=== PATIENT | male | born 1960 | race Caucasian/White ===

== ENCOUNTER 2016-10-31 19:05 | Emergency (ER) | payer MEDICARE, MEDICAID ==
[2016-10-31] MEDS: ASPIRIN 81 MG CHEWABLE TABLET PO ONE (19:44)
[2016-10-31] MEDS: NITROGLYCERIN 0.4MG SL TABLET #25 BTL SL ONE (19:45)
[2016-10-31] MEDS: 0.9 % SODIUM CHLORIDE 1,000 ML BAG IV ONE (19:45)
[2016-10-31 19:47] LABS: HEMATOCRIT 41.7 % (42.0-52.0); HEMOGLOBIN 13.8 gm/dl (14.0-18.0); MEAN CELL VOLUME 86.9 fl (81-97); MEAN CORPUSCULAR HGB CONC 33.1 g/dl (32-36); MEAN PLATELET VOLUME 9.2 fl (7.4-10.4); PLATELET COUNT 154 K/uL (130-400); RED CELL DISTRIBUTION WIDTH 14.8 % (11.5-14.5); WHITE BLOOD COUNT W/O DIFF 5.1 K/uL (4.2-12.2)
[2016-10-31 19:53] LABS: MEAN CORPUSCULAR HEMOGLOBIN 28.7 pg (27-33)
[2016-10-31 19:58] LABS: ANION GAP 9.9 (7-16); BLOOD UREA NITROGEN 13 mg/dL (9-20); CARBON DIOXIDE 22.1 mmol/L (22-30); CREATINE PHOSPHOKINASE 85 U/L (55-170); CREATININE 0.8 mg/dL (0.66-1.25); EST GLOMERULAR FILTRATION RATE > 60 ml/min; GLUCOSE,RANDOM 155 mg/dL (70-110); INR 2.6; PROTHROMBIN TIME (PATIENT) 29.4 SECONDS (9.5-12.1)
[2016-10-31 20:21] LABS: TROPONIN I < 0.012 ng/mL (0.00-0.034)
--- NOTE | 2016-10-31 20:45 | Emergency Department Record ---
History of Present Illness - General Chief Complaint: Chest Pain Stated Complaint: NECK PAIN Time Seen by Provider: 10/31/16 19:23 Source: Patient Mode of Arrival: Ambulatory Limitations: No limitations - History of Present Illness Initial Comments: pt has had chest pain for 2 days that feels "like when i had afib". it has been constant with slight sob. pt also has neck pain that he woke up with this morning. pt does not recall any injury but states he might have slept on it wrong. he has chronic neck pain and has had MRIs that show spinal stenosis the pt states MD Complaint: Chest pain Onset/Timin -: Days(s) Onset: Other Pain Location: Substernal Pain Radiation: None Severity: Moderate Severity scale (1-10): 9 Quality: Other Consistency: Constant Improves With: Nothing Worsens With: Nothing Context: Other Anginal Symptoms: Other Other Symptoms: Other Treatments Prior to Arrival: None - Related Data Home Medications Medication Instructions Recorded Confirmed Last Taken Atorvastatin Calcium [Lipitor] 40 mg PO DAILY 02/28/14 10/31/16 09/10/16 Nitroglycerin [Nitrostat] 0.4 mg SL ASDIR PRN 02/28/14 10/31/16 09/10/16 Clonazepam [Klonopin] 1 tab PO Q12H PRN 02/22/15 10/31/16 09/10/16 Cyclobenzaprine HCl [Flexeril] 10 mg PO TID 03/28/15 10/31/16 09/10/16 Pantoprazole Sodium [Protonix] 20 mg PO BID 08/05/15 10/31/16 09/10/16 Pregabalin [Lyrica] 150 mg PO BID 03/08/16 10/31/16 09/10/16 Metoprolol Tartrate [Lopressor] 25 mg PO Q12H 05/18/16 10/31/16 09/10/16 Warfarin Sodium [Coumadin] 2.5 mg PO DAILY 05/18/16 10/31/16 09/10/16 Sotalol HCl [Betapace] 80 mg PO BID 09/06/16 10/31/16 09/10/16 Allergies Allergy/AdvReac Type Severity Reaction Status Date / Time venom-honey bee Allergy Severe ANAPHYLAXIS Verified 08/11/16 16:42 [bee venom (honey bee)] diazepam [From Valium] Allergy Intermediate unknown Verified 08/11/16 16:42 fentanyl Allergy Intermediate ITCHING Verified 08/11/16 16:42 ketorolac tromethamine Allergy Intermediate unknown Verified 08/11/16 16:42 morphine Allergy Intermediate unknown Verified 08/11/16 16:42 orphenadrine citrate Allergy Intermediate unknown Verified 08/11/16 16:42 [From Norflex] iodine Allergy Mild ITCHING Verified 08/11/16 16:42 Travel Screening - Travel/Exposure Within Last 30 Days Have you traveled within the last 30 days?: No - Travel/Exposure Within Last Year Have you traveled outside the [place] in the last year?: No - Additonal Travel Details Have you been exposed to anyone with a communicable illness?: No - Travel Symptoms Symptom Screening: None Review of Systems Reviewed: No additional complaints except as noted below Constitutional: Reports: As per HPI. Denies: Chills, Fever, Malaise, Night sweats, Weakness, Weight change Eyes: Reports: As per HPI. Denies: Eye discharge, Eye pain, Photophobia, Vision change ENT: Reports: As per HPI. Denies: Congestion, Dental pain, Ear pain, Epistaxis , Hearing loss, Throat pain Respiratory: Reports: As per HPI. Denies: Cough, Dyspnea, Hemoptysis, Stridor, Wheezes Cardiovascular: Reports: As per HPI. Denies: Arrhythmia, Chest pain, Dyspnea on exertion, Edema, Murmurs, Orthopnea, Palpitations, Paroxysmal nocturnal dyspnea, Rheumatic Fever, Syncope Endocrine: Reports: As per HPI. Denies: Fatigue, Heat or cold intolerance, Polydipsia, Polyuria Gastrointestinal: Reports: As per HPI. Denies: Abdominal pain, Constipation, Diarrhea, Hematemesis, Hematochezia, Melena, Nausea, Vomiting Genitourinary: Reports: As per HPI. Denies: Dysuria, Frequency, Hematuria, Incontinence, Retention, Testicular pain, Testicular mass, Urgency Musculoskeletal: Reports: As per HPI. Denies: Arthralgia, Back pain, Gout, Joint swelling, Myalgia, Neck pain Skin: Reports: As per HPI. Denies: Bruising, Change in color, Change in hair/ nails, Lesions, Pruritus, Rash Neurological: Reports: As per HPI. Denies: Abnormal gait, Confusion, Headache, Numbness, Paresthesias, Seizure, Tingling, Tremors, Vertigo, Weakness Psychiatric: Reports: As per HPI. Denies: Anxiety, Auditory hallucinations, Depression, Homicidal thoughts, Suicidal thoughts, Visual hallucinations Hematological/Lymphatic: Reports: As per HPI. Denies: Anemia, Blood Clots, Easy bleeding, Easy bruising, Swollen glands Past Medical History - SOCIAL HISTORY Smoking Status: Former smoker Alcohol Use: None Drug Use: None - RESPIRATORY Hx Respiratory Disorders: Yes Hx Bronchitis: Yes Hx COPD: Yes Hx Dyspnea: Yes Hx Pneumonia: Yes Hx Sleep Apnea: Yes Hx of CPAP: Yes - CARDIOVASCULAR Hx Cardio Disorders: Yes Hx Cardiac Cath: Yes (3 stents) Hx CHF: No Hx Edema: No Hx Heart Attack: Yes (2007,2008) Hx Hypertension: Yes Hx Irregular Heartbeat: Yes (a-fib) Comment:: CAD; high cholesterol - NEURO Hx Neuro Disorders: Yes Hx Neuropathy: Yes Comment:: neuropathy in legs and arms - GI Hx GI Disorders: Yes Hx Reflux: Yes Hx Rectal Bleeding: Yes (hemorrhoids) Hx Ulcer: Yes Hx of Polyps: Yes - Hx Genitourinary Disorders: Yes Comment:: cysts in scrotum - ENDOCRINE Hx Endocrine Disorders: Yes Hx Diabetes: Yes - MUSCULOSKELETAL Hx Musculoskeletal Disorders: Yes Hx Fibromyalgia: Yes Comment:: chronic pain, spinal stenosis - PSYCH Hx Psych Problems: Yes Hx Anxiety: Yes Hx Depression: Yes - HEMATOLOGY/ONCOLOGY Hx Hematology/Oncology Disorders: No Family Medical History Any Significant Family History?: Yes Hx Anxiety: Brother/Sister Hx Dementia: Mother Hx Depression: Brother/Sister Hx Diabetes: Father, Mother Hx Heart Disease: Father, Mother Hx HTN: Father, Mother Hx Resp Disorders: Mother Hx Seizures: Children Hx Stroke: Mother *Stroke Comment: MOm-brain aneurysm Physical Exam - General General Appearance: Alert, Oriented x3, Cooperative, Mild distress - Head Head exam: Normal inspection - Eye Eye exam: Normal appearance, PERRL, EOMI Pupils: Normal accommodation - ENT ENT exam: Normal exam, Mucous membranes moist, Normal external ear exam, Normal orophraynx Ear exam: Normal external inspection. negative: External canal tenderness Nasal Exam: Normal inspection. negative: Discharge, Sinus tenderness Mouth exam: Normal external inspection, Tongue normal Teeth exam: Normal inspection. negative: Dental caries Throat exam: Normal inspection. negative: Tonsillar erythema, Tonsillar exudate - Neck Neck exam: Normal inspection, Full ROM. negative: Tenderness - Respiratory Respiratory exam: Normal lung sounds bilaterally. negative: Respiratory distress - Cardiovascular Cardiovascular Exam: Regular rate, Normal rhythm, Normal heart sounds - GI/Abdominal GI/Abdominal exam: Soft, Normal bowel sounds. negative: Tenderness - Rectal Rectal exam: Deferred - exam: Deferred - Extremities Extremities exam: Normal inspection, Full ROM, Normal capillary refill. negative: Tenderness - Back Back exam: Reports: Normal inspection, Full ROM. Denies: Muscle spasm, Rash noted, Tenderness - Neurological Neurological exam: Alert, CN II-XII intact, Normal gait, Oriented X3 - Psychiatric Psychiatric exam: Normal affect, Normal mood - Skin Skin exam: Dry, Intact, Normal color, Warm Course Vital Signs 10/31/16 10/31/16 10/31/16 19:11 19:40 19:50 Temperature 97.8 F Pulse Rate 68 Pulse Rate [ 61 68 [employer] ] Respiratory 20 20 24 Rate Blood Pressure 116/77 Blood Pressure 113/70 107/70 [Left Arm] Pulse Ox 96 96 94 L 10/31/16 10/31/16 10/31/16 19:53 20:13 20:30 Temperature Pulse Rate Pulse Rate [ 62 57 L 63 [employer] ] Respiratory 24 20 20 Rate Blood Pressure Blood Pressure 107/71 107/64 102/62 [Left Arm] Pulse Ox 93 L 98 94 L - Reevaluation(s) Reevaluation #1: 10/31/16 23:47 ntg pt feels better. ntg had no effect on pain Medical Decision Making - Management Options MDM Management: No Additional Work-up Planned - Data Complexity MDM Data: Labs Ordered and/or Reviewed, X-Ray Ordered and/or Reviewed, EKG Ordered and/or Reviewed - Lab Data Result diagrams: 10/31/16 19:35 10/31/16 19:35 Lab Results 10/31/16 10/31/16 10/31/16 Range/Units 19:35 19:35 19:35 WBC 5.1 (4.2-12.2) K/uL RBC 4.80 (4.40-5.70) M/uL Hgb 13.8 L (14.0-18.0) gm/dl Hct 41.7 L (42.0-52.0) % MCV 86.9 (81-97) fl MCH 28.7 (27-33) pg MCHC 33.1 (32-36) g/dl RDW 14.8 H (11.5-14.5) % Plt Count 154 (130-400) K/uL MPV 9.2 (7.4-10.4) fl Neutrophils % 37.0 L (47-80) % Band Neutrophils % 0.0 (0-5) % Lymphocytes % 53.0 H (16-45) % Monocytes % 9.0 (0-9) % Eosinophils % 1.0 (0-6) % Basophils % 0.0 (0-6) % PT 29.4 H (9.5-12.1) SECONDS INR 2.60 Sodium 136 (136-145) mmol/L Potassium 4.4 (3.5-5.1) mmol/L Chloride 104 (98-107) mmol/L Carbon Dioxide 22.1 (22-30) mmol/L Anion Gap 9.9 (7-16) BUN 13 (9-20) mg/dL Creatinine 0.8 (0.66-1.25) mg/dL Estimated GFR > 60 ml/min Random Glucose 155 H (70-110) mg/dL Calcium 8.9 (8.5-10.1) mg/dL Creatine Kinase 85 (55-170) U/L CK-MB (CK-2) 2.0 (0-6) ug/L Troponin I < 0.012 (0.00-0.034) ng/mL - EKG Data -: EKG Interpreted by Mi EKG: No Acute Changes - Radiology Data Radiology results: Report reviewed, Image reviewed Disposition Disposition: Discharge (n) Clinical Impression: Torticollis, Chest pain in adult, Cervical radiculopathy Disposition: Home, Self-Care Condition: (1) Good Instructions: Chest Pain (ED), Cervical Radiculopathy (ED) Additional Instructions: follow up with family doctor. return sooner if worse Forms: Patient Portal Access
[2016-10-31] MEDS: ACETAMINOPHEN 1,000 MG in SODIUM CHLORIDE 1 BAG IVPB ONE (20:54)
[2016-10-31] MEDS: METHYLPREDNISOLONE PF 125MG/VIAL IVP ONE (21:25)
[2016-10-31] MEDS: PROMETHAZINE HCL 25 MG in 0.9 % SODIUM CHLORIDE 100ML 50 ML IVP ONE (22:19)
--- NOTE | 2016-11-05 14:03 | RADIOLOGY REPORT ---
EXAM: CERVICAL SPINE HISTORY: PATIENT HAS POSTERIOR NECK PAIN THAT HAS RADIATED TO HIS UPPER BACK FOR TWO DAYS. TECHNIQUE: Three views of the cervical spine were provided along with the comparison study dated 05/10/02. FINDINGS: The vertebral body height, contour, and AP alignment of the cervical spine is within normal limits. The atlantodental interval is within normal limits. There is no radiographic evidence of a fracture or dislocation of the cervical spine. There is reversal of normal lordosis which may be related to the patient's neck pain. The airways and epiglottis appear unremarkable. Open mouth view demonstrates the dens to be located symmetrically between the lateral masses. IMPRESSION: NO RADIOGRAPHIC EVIDENCE OF AN ACUTE PROCESS INVOLVING THE CERVICAL SPINE. IF THERE IS FURTHER CLINICAL CONCERN, THEN MRI OF THE CERVICAL SPINE COULD BE OBTAINED FOR FURTHER EVALUATION. JOB NUMBER: [id number] [facility]
--- NOTE | 2016-11-05 14:07 | RADIOLOGY REPORT ---
EXAM: CHEST, TWO VIEWS HISTORY: PATIENT HAS CHEST PAIN. TECHNIQUE: Two views of the chest were provided along with the comparison study dated 08/12/08. FINDINGS: The cardiomediastinal silhouette is within normal limits for size and contour. The nicho appear unremarkable. There is diffuse interstitial prominence identified bilaterally which may represent viral versus reactive airways disease. No focal consolidation or pleural effusion is noted. IMPRESSION: DIFFUSE INTERSTITIAL PROMINENCE IS NOTED BILATERALLY WHICH MAY REPRESENT VIRAL VERSUS REACTIVE AIRWAYS DISEASE. FOLLOW-UP PLAIN FILM RADIOGRAPHS OF THE CHEST CAN BE OBTAINED UNTIL RESOLUTION OF FINDINGS. JOB NUMBER: [id number] [facility]
== END 2016-10-31 23:55 | disposition home or self-care (01) ==
LOC: ER 19:05
DX: M43.6 Torticollis (principal); M54.12 Radiculopathy, cervical region; R07.2 Precordial pain; R06.02 Shortness of breath; J44.9 Chronic obstructive pulmonary disease, unspecified; I25.2 Old myocardial infarction; I10 Essential (primary) hypertension; I48.91 Unspecified atrial fibrillation; Z87.891 Personal history of nicotine dependence; Z79.01 Long term (current) use of anticoagulants
CPT/HCPCS: 71020; 72040; 80048; 82550; 82553; 84484; 85027; 85610; 93005; 93010; 96365; 96375; 99284; J2550; J2930; J7030

== ENCOUNTER 2016-11-26 00:24 | Emergency (ER) | payer MEDICARE, MEDICAID ==
--- NOTE | 2016-11-26 00:48 | Emergency Department Record ---
History of Present Illness - General Chief Complaint: Dizziness Stated Complaint: PASSED OUT Time Seen by Provider: 11/26/16 00:35 Source: Patient Mode of Arrival: Ambulatory Limitations: No limitations - History of Present Illness Initial Comments: 56 yo male presents after passing out in the bathroom about 2 hours prior to arrival. He states it occurred immediately after urinating. He was standing up to void. He was pulling his pants up when it occurred. He is unsure if he hit his head. His neck chronically hurts but it is now more painful. He has pain in the ribs and back. He has chronic frequent daily chest wall pain. He was concerned his atrial fibrillation returned. The patient has had multiple recent admissions for chest pain and atrial fibrillation. He had a negative perfusion study in June He was discharged from [facility] yesterday. He was discharged from [facility] less than one month ago. MD Complaint: Lightheadedness, Other (syncope) Onset/Timin -: Hour(s) Timing: Sudden onset Description: Lightheadedness, Near-syncope, Other History of Same: Yes Improves With: Nothing Worsens With: Nothing Associated Symptoms: Syncope, Weakness - [place] Coma Scale Eye Response: (4) Open spontaneously Motor Response: (6) Obeys commands Verbal Response: (5) Oriented Cecy Total: 15 - Related Data Home Medications Medication Instructions Recorded Confirmed Last Taken Atorvastatin Calcium [Lipitor] 40 mg PO DAILY 02/28/14 11/26/16 11/25/16 Nitroglycerin [Nitrostat] 0.4 mg SL ASDIR PRN 02/28/14 11/26/16 11/25/16 Clonazepam [Klonopin] 1 tab PO Q12H PRN 02/22/15 11/26/16 11/25/16 Cyclobenzaprine HCl [Flexeril] 10 mg PO TID 03/28/15 11/26/16 11/25/16 Pantoprazole Sodium [Protonix] 20 mg PO BID 08/05/15 11/26/16 11/25/16 Pregabalin [Lyrica] 150 mg PO BID 03/08/16 11/26/16 11/25/16 Warfarin Sodium [Coumadin] 2.5 mg PO DAILY 05/18/16 11/26/16 11/25/16 Amiodarone HCl [Pacerone] 200 mg PO BID 11/26/16 11/26/16 11/25/16 Aspirin [Ecotrin] 81 mg PO DAILY 11/26/16 11/26/16 11/25/16 Benzonatate [Tessalon] 1 cap PO Q8H PRN 11/26/16 11/26/16 Unknown Levofloxacin [Levaquin] 750 mg PO DAILY 11/26/16 11/26/16 11/25/16 Allergies Allergy/AdvReac Type Severity Reaction Status Date / Time venom-honey bee Allergy Severe ANAPHYLAXIS Verified 08/11/16 16:42 [bee venom (honey bee)] diazepam [From Valium] Allergy Intermediate unknown Verified 08/11/16 16:42 fentanyl Allergy Intermediate ITCHING Verified 08/11/16 16:42 ketorolac tromethamine Allergy Intermediate unknown Verified 08/11/16 16:42 morphine Allergy Intermediate unknown Verified 08/11/16 16:42 orphenadrine citrate Allergy Intermediate unknown Verified 08/11/16 16:42 [From Norflex] iodine Allergy Mild ITCHING Verified 08/11/16 16:42 Travel Screening - Travel/Exposure Within Last 30 Days Have you traveled within the last 30 days?: No - Travel/Exposure Within Last Year Have you traveled outside the [place] in the last year?: No - Additonal Travel Details Have you been exposed to anyone with a communicable illness?: No - Travel Symptoms Symptom Screening: None Review of Systems Constitutional: Denies: Chills, Fever, Malaise, Night sweats, Weakness Eyes: Denies: Eye discharge ENT: Denies: Congestion, Epistaxis, Throat pain Respiratory: Denies: Cough, Dyspnea, Hemoptysis, Stridor, Wheezes Cardiovascular: Reports: Arrhythmia (History of Atrial fibrillation recently), Chest pain, Syncope. Denies: Edema, Palpitations Endocrine: Denies: Fatigue Gastrointestinal: Denies: Abdominal pain, Diarrhea, Nausea, Vomiting Genitourinary: Denies: Dysuria, Frequency, Hematuria Musculoskeletal: Reports: Back pain (right and left ribs hurt since the fall), Neck pain. Denies: Arthralgia Skin: Denies: Bruising, Change in color, Rash Neurological: Denies: Abnormal gait, Confusion, Headache, Tingling, Tremors, Weakness Psychiatric: Denies: Anxiety Hematological/Lymphatic: Denies: Blood Clots, Easy bleeding, Easy bruising, Swollen glands Past Medical History - SOCIAL HISTORY Smoking Status: Former smoker Drug Use: None - RESPIRATORY Hx Respiratory Disorders: Yes Hx Bronchitis: Yes Hx COPD: Yes Hx Dyspnea: Yes Hx Pneumonia: Yes Hx Sleep Apnea: Yes Hx of CPAP: Yes - CARDIOVASCULAR Hx Cardio Disorders: Yes Hx Cardiac Cath: Yes (3 stents) Hx CHF: No Hx Edema: No Hx Heart Attack: Yes (2007,2008) Hx Hypertension: Yes Hx Irregular Heartbeat: Yes (a-fib) Comment:: CAD; high cholesterol - NEURO Hx Neuro Disorders: Yes Hx Neuropathy: Yes Comment:: neuropathy in legs and arms - GI Hx GI Disorders: Yes Hx Reflux: Yes Hx Rectal Bleeding: Yes (hemorrhoids) Hx Ulcer: Yes Hx of Polyps: Yes - Hx Genitourinary Disorders: Yes Comment:: cysts in scrotum - ENDOCRINE Hx Endocrine Disorders: Yes Hx Diabetes: Yes - MUSCULOSKELETAL Hx Musculoskeletal Disorders: Yes Hx Fibromyalgia: Yes Comment:: chronic pain, spinal stenosis - PSYCH Hx Psych Problems: Yes Hx Anxiety: Yes Hx Depression: Yes - HEMATOLOGY/ONCOLOGY Hx Hematology/Oncology Disorders: No Family Medical History Any Significant Family History?: No Hx Anxiety: Brother/Sister Hx Dementia: Mother Hx Depression: Brother/Sister Hx Diabetes: Father, Mother Hx Heart Disease: Father, Mother Hx HTN: Father, Mother Hx Resp Disorders: Mother Hx Seizures: Children Hx Stroke: Mother *Stroke Comment: MOm-brain aneurysm Physical Exam - General General Appearance: Alert, Oriented x3, Cooperative, No acute distress, Other ( Ambulated in from the parking lot) Limitations: No limitations - Head Head exam: Atraumatic, Normal inspection - Eye Eye exam: Normal appearance, PERRL. negative: Conjunctival injection - ENT ENT exam: Normal exam, Mucous membranes moist Ear exam: Normal external inspection Nasal Exam: Normal inspection Mouth exam: Normal external inspection Teeth exam: Normal inspection Throat exam: Normal inspection - Neck Neck exam: Normal inspection, Full ROM, Tenderness. negative: Meningismus - Respiratory Respiratory exam: Normal lung sounds bilaterally, Chest wall tenderness (right lateral ribs tender, no deformity or step off). negative: Accessory muscle use , Decreased breath sounds, Prolonged expiratory, Respiratory distress, Rhonchi, Stridor, Wheezes - Cardiovascular Cardiovascular Exam: Regular rate, Normal rhythm, Normal heart sounds. negative : Irregular rhythm Peripheral Pulses: 2+: Radial (R), Radial (L) - GI/Abdominal GI/Abdominal exam: Soft. negative: Guarding, Tenderness - Rectal Rectal exam: Deferred - exam: Deferred - Extremities Extremities exam: Normal inspection, Full ROM, Normal capillary refill. negative: Pedal edema, Tenderness - Back Back exam: Reports: Normal inspection, Full ROM. Denies: CVA tenderness (R), CVA tenderness (L), Muscle spasm, Paraspinal tenderness, Rash noted, Tenderness , Vertebral tenderness - Neurological Neurological exam: Alert, Normal gait (steady ambulation on arrival), Oriented X3, Reflexes normal. negative: Altered, Motor sensory deficit - Psychiatric Psychiatric exam: Normal affect, Normal mood - Skin Skin exam: Dry, Intact, Normal color, Warm, Other (No visible bruising or abrasions) Course Vital Signs 11/26/16 11/26/16 00:26 00:34 Temperature 97.3 F L Pulse Rate 73 Respiratory 20 Rate Blood Pressure 130/81 Pulse Ox 96 - Reevaluation(s) Reevaluation #1: EKG 00:30 NSR with RBBB, Intervals [id number], axis normal, ST NS changes of the RBBB. EKGS dating back to 2013 on the EMR are RBBB. No changes on today's EKG frm numerous prior EKG's. He is not in Afib. No hypotension or tachycardia on arrival. He has multiple recent admission to [facility] and [facility]. The most recent DC summaries of each hospital will be requested. 11/26/16 00:48 Reevaluation #2: The labs were reviewed. No acute changes of the CBC, CMP, CK The INR is 2.6 11/26/16 01:23 Troponin was negative at 0.012 11/26/16 01:37 Reevaluation #3: HR is 73 in NSR HCT was negative Cervical CT was negative CT of the Chest was negative for injury or acute process 11/26/16 02:27 11/26/16 02:47 Reevaluation #4: Repeat cardiac enzymes are negative The patient has remained in NSR during his observation in the ED DC home 11/26/16 05:17 - Consultations Consultation #1: [facility] DC Summary. Admit 10/26/16. Paroxysmal atrial fibrillation, Chest pain. Patient had recent negative stress test. No further testing per cardiology during that admission. Consultation #2: [facility] records were reviewed. The patient had a normal stress cardiolite on . Medical Decision Making - Lab Data Result diagrams: 11/26/16 01:00 11/26/16 01:00 Disposition Disposition: Discharge Clinical Impression: Micturition syncope Syncope Qualifiers: Syncope type: unspecified Qualified Code(s): R55 - Syncope and collapse Disposition: Home, Self-Care Condition: (2) Stable Instructions: Syncope (ED) Additional Instructions: call your doctor today for close follow up return to the ER if you have any return of symptoms or concerns. Forms: Patient Portal Access Time of Disposition: 05:17
[2016-11-26 01:05] LABS: HEMATOCRIT 40.8 % (42.0-52.0); HEMOGLOBIN 13.5 gm/dl (14.0-18.0); MEAN CELL VOLUME 87.2 fl (81-97); MEAN CORPUSCULAR HEMOGLOBIN 28.8 pg (27-33); MEAN CORPUSCULAR HGB CONC 33.1 g/dl (32-36); MEAN PLATELET VOLUME 9.5 fl (7.4-10.4); PLATELET COUNT 147 K/uL (130-400); RED BLOOD COUNT 4.68 M/uL (4.40-5.70); RED CELL DISTRIBUTION WIDTH 15.8 % (11.5-14.5); WHITE BLOOD COUNT W/O DIFF 5.5 K/uL (4.2-12.2)
[2016-11-26 01:16] LABS: ANION GAP 15.4 (7-16); BLOOD UREA NITROGEN 13 mg/dL (9-20); CARBON DIOXIDE 21.6 mmol/L (22-30); CREATINE PHOSPHOKINASE 59 U/L (55-170); CREATININE 0.9 mg/dL (0.66-1.25); EST GLOMERULAR FILTRATION RATE > 60 ml/min; GLUCOSE,RANDOM 160 mg/dL (70-110); INR 2.62; PARTIAL THROMBOPLASTIN TIME 41.8 SECONDS (24.5-39.1); PROTHROMBIN TIME (PATIENT) 29.6 SECONDS (9.5-12.1)
[2016-11-26 01:29] LABS: CKMB 1.5 ug/L (0-6); TROPONIN I < 0.012 ng/mL (0.00-0.034)
--- NOTE | 2016-11-29 09:39 | CT SCAN REPORT ---
EXAM: CT SCAN OF THE HEAD HISTORY: PATIENT HAS A HISTORY OF SYNCOPE. PATIENT HAS A HISTORY OF DIZZINESS. TECHNIQUE: Serial axial CT scan of the head was performed at 2.5 mm intervals from the base of the skull to the apex without the use of intravenous contrast. Sagittal and coronal reconstructions were provided. CT scan of the head dated 05/19/08 is provided. FINDINGS: The ventricles, cisterns, and sulci appear within normal limits for size, shape, and attenuation. There is no mass or mass effect. The greer and white differentiation appear within normal limits. There is no CT evidence of intra or extraaxial fluid collection to suggest bleeding. Bone windows demonstrate no CT evidence of a fracture or dislocation of the skull. The paranasal sinuses are unremarkable. IMPRESSION: NO CT EVIDENCE OF AN ACUTE INTRACRANIAL PROCESS. JOB NUMBER: [id number] [facility]
--- NOTE | 2016-11-29 09:44 | CT SCAN REPORT ---
EXAM: CT SCAN OF THE CERVICAL SPINE HISTORY: PATIENT HAS A HISTORY OF SYNCOPE. TECHNIQUE: Serial axial CT scan of the cervical spine was performed at 2.5 mm intervals from the base of the skull to the thoracic inlet without the use of intravenous contrast. Sagittal and coronal reconstructions were provided. No comparison studies are available. FINDINGS: The vertebral body height, contour, and AP alignment of the cervical spine is within normal limits. There is no CT evidence of a fracture or dislocation of the cervical spine. The atlantodental intervals are within normal limits. The prevertebral soft tissues are unremarkable. The parapharyngeal fat is unremarkable. The bilateral parotid, submandibular, and thyroid glands are unremarkable. There is no CT evidence of cervical lymphadenopathy. The lung windows demonstrate the airways are widely patent. The lung windows of the lung apices are clear. There is moderate disk space height loss and end plate sclerosis at the C5-C6 disk space level suggesting degenerative disk disease. 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 IF THERE IS FURTHER CLINICAL CONCERN THEN MRI OF THE CERVICAL SPINE CAN BE OBTAINED FOR FURTHER EVALUATION. JOB NUMBER: [id number] [facility]
--- NOTE | 2016-11-29 09:52 | CT SCAN REPORT ---
EXAM: CT SCAN OF THE CHEST HISTORY: PATIENT HAS ACUTE CHEST PAIN. PATIENT HAS A HISTORY OF SYNCOPE. TECHNIQUE: Serial axial CT scan of the chest was performed at 3.75 mm intervals from the thoracic inlet to the dome of the diaphragm without the use of intravenous contrast. CT scan of the abdomen and pelvis dated 08/20/08 is provided. FINDINGS: The thoracic inlet is unremarkable. The lung windows demonstrate mild ground glass appearance within the right posterior lower lobe which may represent passive subsegmental atelectasis. Paraseptal emphysematous changes are identified within the bilateral upper and lower lobes. No focal consolidation or pleural effusions are identified. The visualized heart size and contour is within normal limits. Noncontrasted thoracic aorta is unremarkable. There is no CT evidence of a mediastinal, hilar, or axillary lymphadenopathy. Axial images through the upper abdomen demonstrate prominence of the left hepatic lobe with a subtle macronodular contour of the hepatic surface. Clinical correlation for early cirrhotic changes is recommended. The visualized spleen measures 16 cm in AP dimension (normal being less than or equal to 12 cm). The visualized adrenal glands and gallbladder are unremarkable. Bone windows demonstrate no CT evidence of a fracture or dislocation of the visualized thoracic osseous structures. IMPRESSION: 1. NO CT EVIDENCE OF AN ACUTE INTRATHORACIC PROCESS. 2. PARASEPTAL EMPHYSEMATOUS CHANGES AND MILD SUBSEGMENTAL ATELECTASIS AT THE RIGHT POSTERIOR LOWER LOBE IS NOTED. 3. FINDINGS SUGGESTIVE OF EARLY CIRRHOTIC CHANGES WITH SPLENOMEGALY. CLINICAL CORRELATION IS RECOMMENDED. JOB NUMBER: [id number] [facility]D
== END 2016-11-26 05:33 | disposition home or self-care (01) ==
LOC: ER 00:24
DX: R55 Syncope and collapse (principal); R07.89 Other chest pain; M54.2 Cervicalgia; I10 Essential (primary) hypertension; I25.2 Old myocardial infarction; E11.9 Type 2 diabetes mellitus without complications; J44.9 Chronic obstructive pulmonary disease, unspecified; Z87.891 Personal history of nicotine dependence
CPT/HCPCS: 70450; 71250; 72125; 80048; 82550; 82553; 83735; 84484; 85027; 85610; 85730; 93005; 93010; 99284

== ENCOUNTER 2017-01-24 18:06 | Emergency (ER) | payer MEDICARE, MEDICAID ==
[2017-01-24] MEDS ORDERED: PENICILLIN V POTASSIUM 250 MG TAB PO ONE (19:13)
[2017-01-24] MEDS ORDERED: HYDROCODONE/APAP 5/325MG TABLET PO ONE (19:14)
--- NOTE | 2017-01-24 19:15 | Emergency Department Record ---
History of Present Illness - General Chief complaint: Dental Stated complaint: MOUTH PAIN Time Seen by Provider: 01/24/17 18:59 - History of Present Illness Initial comments: The patient states that his left lower back molar has been hurting him the past day. He feels chilled and feverish and is in pain from it. He can take penicillin without problems. MD complaint: Tooth pain - Related Data Home Medications Medication Instructions Recorded Confirmed Last Taken Atorvastatin Calcium [Lipitor] 40 mg PO DAILY 02/28/14 01/24/17 11/25/16 Nitroglycerin [Nitrostat] 0.4 mg SL ASDIR PRN 02/28/14 01/24/17 11/25/16 Clonazepam [Klonopin] 1 tab PO Q12H PRN 02/22/15 01/24/17 11/25/16 Cyclobenzaprine HCl [Flexeril] 10 mg PO TID 03/28/15 01/24/17 11/25/16 Pantoprazole Sodium [Protonix] 20 mg PO BID 08/05/15 01/24/17 11/25/16 Pregabalin [Lyrica] 150 mg PO BID 03/08/16 01/24/17 11/25/16 Warfarin Sodium [Coumadin] 2.5 mg PO DAILY 05/18/16 01/24/17 11/25/16 Amiodarone HCl [Pacerone] 200 mg PO BID 11/26/16 01/24/17 11/25/16 Aspirin [Ecotrin] 81 mg PO DAILY 11/26/16 01/24/17 11/25/16 Benzonatate [Tessalon] 1 cap PO Q8H PRN 11/26/16 01/24/17 Unknown Levofloxacin [Levaquin] 750 mg PO DAILY 11/26/16 01/24/17 11/25/16 Previous Rx's Medication Instructions Recorded Hydrocodone/Acetaminophen [[place] 1 tab PO Q6H PRN #7 tab 01/24/17 5mg/325mg] Penicillin V Potassium 500 mg PO Q6H #39 tab 01/24/17 Allergies Allergy/AdvReac Type Severity Reaction Status Date / Time venom-honey bee Allergy Severe ANAPHYLAXIS Verified 01/24/17 19:08 [bee venom (honey bee)] diazepam [From Valium] Allergy Intermediate unknown Verified 01/24/17 19:08 fentanyl Allergy Intermediate ITCHING Verified 01/24/17 19:08 ketorolac tromethamine Allergy Intermediate unknown Verified 01/24/17 19:08 morphine Allergy Intermediate unknown Verified 01/24/17 19:08 orphenadrine citrate Allergy Intermediate unknown Verified 01/24/17 19:08 [From Norflex] iodine Allergy Mild ITCHING Verified 01/24/17 19:08 Review of Systems Reviewed: No additional complaints except as noted below Constitutional: Reports: As per HPI. Denies: Chills, Fever, Malaise, Night sweats, Weakness, Weight change Eyes: Reports: As per HPI. Denies: Eye discharge, Eye pain, Photophobia, Vision change ENT: Reports: As per HPI. Denies: Congestion, Dental pain, Ear pain, Epistaxis , Hearing loss, Throat pain Respiratory: Reports: As per HPI. Denies: Cough, Dyspnea, Hemoptysis, Stridor, Wheezes Cardiovascular: Reports: As per HPI. Denies: Arrhythmia, Chest pain, Dyspnea on exertion, Edema, Murmurs, Orthopnea, Palpitations, Paroxysmal nocturnal dyspnea, Rheumatic Fever, Syncope Endocrine: Reports: As per HPI. Denies: Fatigue, Heat or cold intolerance, Polydipsia, Polyuria Gastrointestinal: Reports: As per HPI. Denies: Abdominal pain, Constipation, Diarrhea, Hematemesis, Hematochezia, Melena, Nausea, Vomiting Genitourinary: Reports: As per HPI. Denies: Dysuria, Frequency, Hematuria, Incontinence, Retention, Testicular pain, Testicular mass, Urgency Musculoskeletal: Reports: As per HPI. Denies: Arthralgia, Back pain, Gout, Joint swelling, Myalgia, Neck pain Skin: Reports: As per HPI. Denies: Bruising, Change in color, Change in hair/ nails, Lesions, Pruritus, Rash Neurological: Reports: As per HPI. Denies: Abnormal gait, Confusion, Headache, Numbness, Paresthesias, Seizure, Tingling, Tremors, Vertigo, Weakness Psychiatric: Reports: As per HPI. Denies: Anxiety, Auditory hallucinations, Depression, Homicidal thoughts, Suicidal thoughts, Visual hallucinations Hematological/Lymphatic: Reports: As per HPI. Denies: Anemia, Blood Clots, Easy bleeding, Easy bruising, Swollen glands Past Medical History - SOCIAL HISTORY Smoking Status: Former smoker Drug Use: None - RESPIRATORY Hx Respiratory Disorders: Yes Hx Bronchitis: Yes Hx COPD: Yes Hx Dyspnea: Yes Hx Pneumonia: Yes Hx Sleep Apnea: Yes Hx of CPAP: Yes - CARDIOVASCULAR Hx Cardio Disorders: Yes Hx Cardiac Cath: Yes (3 stents) Hx CHF: No Hx Edema: No Hx Heart Attack: Yes (2007,2008) Hx Hypertension: Yes Hx Irregular Heartbeat: Yes (a-fib) Comment:: CAD; high cholesterol - NEURO Hx Neuro Disorders: Yes Hx Neuropathy: Yes Comment:: neuropathy in legs and arms - GI Hx GI Disorders: Yes Hx Reflux: Yes Hx Rectal Bleeding: Yes (hemorrhoids) Hx Ulcer: Yes Hx of Polyps: Yes - Hx Genitourinary Disorders: Yes Comment:: cysts in scrotum - ENDOCRINE Hx Endocrine Disorders: Yes Hx Diabetes: Yes - MUSCULOSKELETAL Hx Musculoskeletal Disorders: Yes Hx Fibromyalgia: Yes Comment:: chronic pain, spinal stenosis - PSYCH Hx Psych Problems: Yes Hx Anxiety: Yes Hx Depression: Yes - HEMATOLOGY/ONCOLOGY Hx Hematology/Oncology Disorders: No Family Medical History Hx Anxiety: Brother/Sister Hx Dementia: Mother Hx Depression: Brother/Sister Hx Diabetes: Father, Mother Hx Heart Disease: Father, Mother Hx HTN: Father, Mother Hx Resp Disorders: Mother Hx Seizures: Children Hx Stroke: Mother *Stroke Comment: MOm-brain aneurysm Physical Exam - General General Appearance: Alert, Oriented x3, Cooperative, Mild distress (appears older than stated age.) - Head Head exam: Normal inspection - Eye Eye exam: Normal appearance, PERRL Pupils: Normal accommodation - ENT ENT exam: Normal exam, Mucous membranes moist, Normal external ear exam, Normal orophraynx, TM's normal bilaterally Ear exam: Normal external inspection. negative: External canal tenderness Nasal Exam: Normal inspection. negative: Discharge, Sinus tenderness Mouth exam: Normal external inspection, Tongue normal Teeth exam: Normal inspection, Dental tenderness # (#17.). negative: Dental caries Throat exam: Normal inspection. negative: Tonsillar erythema, Tonsillar exudate - Neck Neck exam: Normal inspection, Full ROM, Other (chronic neck pain and loss of mobility unchanged from prior visits). negative: Lymphadenopathy, Meningismus, Tenderness - Respiratory Respiratory exam: Normal lung sounds bilaterally. negative: Respiratory distress - Cardiovascular Cardiovascular Exam: Regular rate, Normal rhythm, Normal heart sounds - GI/Abdominal GI/Abdominal exam: Soft, Normal bowel sounds. negative: Tenderness - Rectal Rectal exam: Deferred - exam: Deferred - Extremities Extremities exam: Normal inspection, Full ROM, Normal capillary refill. negative: Tenderness - Back Back exam: Reports: Normal inspection, Full ROM. Denies: Muscle spasm, Rash noted, Tenderness - Neurological Neurological exam: Alert, Normal gait, Oriented X3, Reflexes normal - Psychiatric Psychiatric exam: Normal affect, Normal mood - Skin Skin exam: Dry, Intact, Normal color, Warm Course - Reevaluation(s) Reevaluation #1: The patient states he will see his 's dentist next week. 01/24/17 19:13 Medical Decision Making - Management Options MDM Management: No Additional Work-up Planned Disposition Disposition: Discharge Clinical Impression: Tooth ache Condition: (1) Good Instructions: Dental Abscess (ED) Additional Instructions: Take antibiotics until gone. [place] as directed if needed for pain. Follow up with dentist next week. Soft diet, no chewing. Prescriptions: Hydrocodone/Acetaminophen [[place] 5mg/325mg] 1 tab PO Q6H PRN #7 tab PRN Reason: Pain - General Penicillin V Potassium 500 mg PO Q6H #39 tab Forms: Patient Portal Access
== END 2017-01-24 19:30 | disposition home or self-care (01) ==
LOC: ER 18:06
DX: K08.89 Other specified disorders of teeth and supporting structures (principal); M54.5 Low back pain
CPT/HCPCS: 99282

== ENCOUNTER 2017-03-04 12:47 | Emergency (ER) | payer MEDICARE, MEDICAID ==
[2017-03-04] MEDS ORDERED: ACETAMINOPHEN 500 MG TABLET PO ONE (13:05)
--- NOTE | 2017-03-04 13:11 | Emergency Department Record ---
History of Present Illness - General Stated Complaint: NECK/CHECK PAIN Time Seen by Provider: 03/04/17 13:04 Source: Patient Mode of Arrival: Ambulatory Limitations: No limitations - History of Present Illness Initial comments: 56 yo male presents with pain in his neck and chest that started around 7am. He denies any injury. He has a history of CAD and atrial fibrillation as well as chronic neck pain. The neck hurts to bend or twist. The pain in the neck then radiates to the chest in the upper area. No back pain. He has frequent pain in the chest with multiple evaluations and admissions. No arm pain. No numbness or tingling to the arms or legs. No radiation down the back. No abdominal pain. -: Hour(s) (6) Location: Chest, Neck Radiation: Neck Quality: Aching Consistency: Constant Improves with: Immobilization, Rest Worsens with: Movement Associated Symptoms: Chest pain Treatments Prior to Arrival: Other (Home medications) - [place] Coma Scale Eye Response: (4) Open spontaneously Motor Response: (6) Obeys commands Verbal Response: (5) Oriented [place] Total: 15 - Related Data Home Medications Medication Instructions Recorded Confirmed Last Taken Atorvastatin Calcium [Lipitor] 40 mg PO DAILY 02/28/14 03/04/17 03/04/17 Nitroglycerin [Nitrostat] 0.4 mg SL ASDIR PRN 02/28/14 03/04/17 03/04/17 Clonazepam [Klonopin] 1 tab PO Q12H PRN 02/22/15 03/04/17 03/04/17 Cyclobenzaprine HCl [Flexeril] 10 mg PO TID 03/28/15 03/04/17 03/04/17 Pantoprazole Sodium [Protonix] 20 mg PO BID 08/05/15 03/04/17 03/04/17 Pregabalin [Lyrica] 150 mg PO BID 03/08/16 03/04/17 03/04/17 Warfarin Sodium [Coumadin] 2.5 mg PO DAILY 05/18/16 03/04/17 03/04/17 Amiodarone HCl [Pacerone] 200 mg PO BID 11/26/16 03/04/17 03/04/17 Aspirin [Ecotrin] 81 mg PO DAILY 11/26/16 03/04/17 03/04/17 Previous Rx's Medication Instructions Recorded Hydrocodone/Acetaminophen [[place] 1 tab PO Q6H PRN #7 tab 01/24/17 5mg/325mg] Penicillin V Potassium 500 mg PO Q6H #39 tab 01/24/17 Allergies Allergy/AdvReac Type Severity Reaction Status Date / Time venom-honey bee Allergy Severe ANAPHYLAXIS Verified 01/24/17 19:08 [bee venom (honey bee)] diazepam [From Valium] Allergy Intermediate unknown Verified 01/24/17 19:08 fentanyl Allergy Intermediate ITCHING Verified 01/24/17 19:08 ketorolac tromethamine Allergy Intermediate unknown Verified 01/24/17 19:08 morphine Allergy Intermediate unknown Verified 01/24/17 19:08 orphenadrine citrate Allergy Intermediate unknown Verified 01/24/17 19:08 [From Norflex] iodine Allergy Mild ITCHING Verified 01/24/17 19:08 Review of Systems Constitutional: Denies: Chills, Fever, Night sweats, Weakness Eyes: Denies: Eye discharge, Eye pain, Photophobia, Vision change ENT: Denies: Congestion, Dental pain, Epistaxis, Hearing loss, Throat pain Respiratory: Denies: Cough, Dyspnea, Hemoptysis, Stridor, Wheezes Cardiovascular: Reports: Chest pain. Denies: Palpitations, Syncope Endocrine: Denies: Fatigue, Polydipsia, Polyuria Gastrointestinal: Denies: Abdominal pain, Diarrhea, Nausea, Vomiting Genitourinary: Denies: Dysuria, Frequency, Hematuria, Urgency Musculoskeletal: Reports: As per HPI, Arthralgia, Myalgia, Neck pain. Denies: Back pain, Joint swelling Skin: Denies: Bruising, Change in color, Rash Neurological: Denies: Headache, Numbness, Vertigo, Weakness Psychiatric: Denies: Anxiety Hematological/Lymphatic: Denies: Blood Clots, Easy bleeding, Easy bruising, Swollen glands Past Medical History - SOCIAL HISTORY Smoking Status: Former smoker Drug Use: None - RESPIRATORY Hx Respiratory Disorders: Yes Hx Bronchitis: Yes Hx COPD: Yes Hx Dyspnea: Yes Hx Pneumonia: Yes Hx Sleep Apnea: Yes Hx of CPAP: Yes - CARDIOVASCULAR Hx Cardio Disorders: Yes Hx Cardiac Cath: Yes (3 stents) Hx CHF: No Hx Edema: No Hx Heart Attack: Yes (2007,2008) Hx Hypertension: Yes Hx Irregular Heartbeat: Yes (a-fib) Comment:: CAD; high cholesterol - NEURO Hx Neuro Disorders: Yes Hx Neuropathy: Yes Comment:: neuropathy in legs and arms - GI Hx GI Disorders: Yes Hx Reflux: Yes Hx Rectal Bleeding: Yes (hemorrhoids) Hx Ulcer: Yes Hx of Polyps: Yes - Hx Genitourinary Disorders: Yes Comment:: cysts in scrotum - ENDOCRINE Hx Endocrine Disorders: Yes Hx Diabetes: Yes - MUSCULOSKELETAL Hx Musculoskeletal Disorders: Yes Hx Fibromyalgia: Yes Comment:: chronic pain, spinal stenosis - PSYCH Hx Psych Problems: Yes Hx Anxiety: Yes Hx Depression: Yes - HEMATOLOGY/ONCOLOGY Hx Hematology/Oncology Disorders: No Family Medical History Hx Anxiety: Brother/Sister Hx Dementia: Mother Hx Depression: Brother/Sister Hx Diabetes: Father, Mother Hx Heart Disease: Father, Mother Hx HTN: Father, Mother Hx Resp Disorders: Mother Hx Seizures: Children Hx Stroke: Mother *Stroke Comment: MOm-brain aneurysm Physical Exam - General General Appearance: Alert, Oriented x3, Cooperative, No acute distress Limitations: No limitations - Head Head exam: Normocephalic, Normal inspection - Eye Eye exam: Normal appearance. negative: Conjunctival injection, Periorbital swelling - ENT ENT exam: Normal exam, Mucous membranes moist Ear exam: Normal external inspection Nasal Exam: Normal inspection Mouth exam: Normal external inspection Teeth exam: Normal inspection Throat exam: Normal inspection - Neck Neck exam: Normal inspection, Tenderness, Other (pain is reproducible with ROM of the neck, no swelling, no crepitus or the neck bones). negative: Full ROM, Lymphadenopathy, Meningismus, Thyromegaly - Respiratory Respiratory exam: Normal lung sounds bilaterally. negative: Respiratory distress, Rhonchi, Stridor, Wheezes - Cardiovascular Cardiovascular Exam: Regular rate, Normal rhythm, Normal heart sounds Peripheral Pulses: 2+: Radial (R), Radial (L) - GI/Abdominal GI/Abdominal exam: Soft. negative: Distended, Guarding, Rebound, Tenderness - Rectal Rectal exam: Deferred - exam: Deferred - Extremities Extremities exam: Normal inspection, Full ROM, Normal capillary refill. negative: Pedal edema, Tenderness - Back Back exam: Reports: Normal inspection, Full ROM, Other (No pain in the back). Denies: CVA tenderness (R), CVA tenderness (L), Muscle spasm, Paraspinal tenderness, Rash noted, Tenderness, Vertebral tenderness - Neurological Neurological exam: Alert, CN II-XII intact, Normal gait, Oriented X3, Reflexes normal. negative: Altered, Motor sensory deficit - Psychiatric Psychiatric exam: Normal affect, Normal mood. negative: Agitated, Anxious - Skin Skin exam: Dry, Intact, Normal color, Warm Course - Reevaluation(s) Reevaluation #1: EKG NSR rate 65, RBBB (old), ST no acute changes, CW RBBB. Prior EKG was RBBB on 11/26/16 also RBBB with no acute changes Very atypical reproducible pain on today's examination. No EKG changes. 03/04/17 13:12 Reevaluation #2: No acute changes on the initial labs. The Troponin is normal The patient was able to take a long nap comfortably after the Tylenol. 03/04/17 15:08 Reevaluation #3: The XR was unchanged from prior. Degenerative changes The patient continues to sleep comfortably. 2nd set of cardiac enzymes ordered for atypical chest pain. 03/04/17 17:01 Reevaluation #4: The repeat troponin is negative DC home to follow up with his family doctor 03/04/17 17:49 Medical Decision Making - Lab Data Result diagrams: 03/04/17 13:35 03/04/17 13:35 Disposition Disposition: Discharge Clinical Impression: Cervical pain, Atypical chest pain Disposition: Home, Self-Care Condition: (1) Good Instructions: Cervical Sprain (ED) Additional Instructions: Call your doctor for close follow up this week Return if you have uncontrolled neck pain or any new concerns Tylenol every 6-8 hours as needed for pain. Time of Disposition: 17:50
[2017-03-04 13:48] LABS: BASO % 0.3 % (0-6); EOS % 3.3 % (0-6); GRAN % 44.9 % (47-80); HEMATOCRIT 38.2 % (42.0-52.0); HEMOGLOBIN 12.2 gm/dl (14.0-18.0); LYMPH % 43.1 % (16-45); MEAN CELL VOLUME 84.3 fl (81-97); MEAN CORPUSCULAR HEMOGLOBIN 26.9 pg (27-33); MEAN CORPUSCULAR HGB CONC 31.9 g/dl (32-36); MEAN PLATELET VOLUME 8.8 fl (7.4-10.4); MONO % 8.4 % (0-9); PLATELET COUNT 155 K/uL (130-400); RED BLOOD COUNT 4.53 M/uL (4.40-5.70); RED CELL DISTRIBUTION WIDTH 16.3 % (11.5-14.5); WHITE BLOOD COUNT W/O DIFF 3.3 K/uL (4.2-12.2)
[2017-03-04 14:00] LABS: ALB/GLOB RATIO 1.2 (1.1-1.8); ALBUMIN 3.7 gm/dL (3.5-5.0); ALKALINE PHOSPHATASE 150 U/L (38-126); ALT/SGPT 35 U/L (21-72); ANION GAP 9.7 (7-16); AST/SGOT 49 U/L (17-59); BILIRUBIN,TOTAL 0.83 mg/dL (0.2-1.3); BLOOD UREA NITROGEN 7 mg/dL (9-20); CARBON DIOXIDE 23.3 mmol/L (22-30); CREATININE 0.8 mg/dL (0.66-1.25); EST GLOMERULAR FILTRATION RATE > 60 ml/min; GLUCOSE,RANDOM 120 mg/dL (70-110); TOTAL PROTEIN 6.7 gm/dL (6.3-8.2)
[2017-03-04 14:16] LABS: TROPONIN I < 0.012 ng/mL (0.00-0.034)
[2017-03-04 17:47] LABS: CKMB 2.1 ug/L (0-6); TROPONIN I < 0.012 ng/mL (0.00-0.034)
== END 2017-03-04 18:36 | disposition home or self-care (01) ==
LOC: ER 12:47
DX: M54.2 Cervicalgia (principal); R07.89 Other chest pain; I48.91 Unspecified atrial fibrillation; Z79.01 Long term (current) use of anticoagulants; I25.10 Atherosclerotic heart disease of native coronary artery without angina pectoris; J44.9 Chronic obstructive pulmonary disease, unspecified; I10 Essential (primary) hypertension; I25.2 Old myocardial infarction; Z87.891 Personal history of nicotine dependence
CPT/HCPCS: 72050; 80053; 82553; 84484; 85025; 93005; 93010; 99284

== ENCOUNTER 2017-03-05 19:37 | Emergency (ER) | payer MEDICARE, MEDICAID ==
[2017-03-05] MEDS ORDERED: IPRATROPIUM/ALBUTEROL (0.5MG/3MG) NEB INH ONE (19:56)
[2017-03-05] MEDS ORDERED: 0.9 % SODIUM CHLORIDE 1,000 ML BAG IV ONE (20:11)
[2017-03-05] MEDS ORDERED: PROMETHAZINE HCL 25 MG in 0.9 % SODIUM CHLORIDE 100ML 50 ML IVP ONE (20:11)
--- NOTE | 2017-03-05 20:18 | Emergency Department Record ---
History of Present Illness - General Chief Complaint: Cough Stated Complaint: COUGH,HEADACHE,VOMITTING Time Seen by Provider: 03/05/17 19:59 Source: Patient Mode of Arrival: Ambulatory Limitations: No limitations - History of Present Illness Initial Comments: pt states he has a yellow productive cough, congestion, body aches, vomiting, headache and his chronic neck pain. others in his house are sick. he also has chills. MD Complaint: Cough, Nasal congestion, Rhinorrhea, Sinus pain, Sore throat Onset/Timin -: Week(s) Severity: Mild Consistency: Other Context: Sick contacts Associated Symptoms: Chills, Cough, Nasal congestion, Nausea, Rhinorrhea, Sore throat, Vomiting - Related Data Home Medications Medication Instructions Recorded Confirmed Last Taken Atorvastatin Calcium [Lipitor] 40 mg PO DAILY 02/28/14 03/05/17 03/04/17 Nitroglycerin [Nitrostat] 0.4 mg SL ASDIR PRN 02/28/14 03/05/17 03/04/17 Clonazepam [Klonopin] 1 tab PO Q12H PRN 02/22/15 03/05/17 03/04/17 Cyclobenzaprine HCl [Flexeril] 10 mg PO TID 03/28/15 03/05/17 03/04/17 Pantoprazole Sodium [Protonix] 20 mg PO BID 08/05/15 03/05/17 03/04/17 Pregabalin [Lyrica] 150 mg PO BID 03/08/16 03/05/17 03/04/17 Warfarin Sodium [Coumadin] 2.5 mg PO DAILY 05/18/16 03/05/17 03/04/17 Amiodarone HCl [Pacerone] 200 mg PO BID 11/26/16 03/05/17 03/04/17 Aspirin [Ecotrin] 81 mg PO DAILY 11/26/16 03/05/17 03/04/17 Previous Rx's Medication Instructions Recorded Hydrocodone/Acetaminophen [[place] 1 tab PO Q6H PRN #7 tab 01/24/17 5mg/325mg] Penicillin V Potassium 500 mg PO Q6H #39 tab 01/24/17 Amoxicillin 500 mg PO TID #30 capsule 03/05/17 Benzonatate [Tessalon] 1 cap PO Q8H PRN #10 cap 03/05/17 Allergies Allergy/AdvReac Type Severity Reaction Status Date / Time venom-honey bee Allergy Severe ANAPHYLAXIS Verified 01/24/17 19:08 [bee venom (honey bee)] diazepam [From Valium] Allergy Intermediate unknown Verified 01/24/17 19:08 fentanyl Allergy Intermediate ITCHING Verified 01/24/17 19:08 ketorolac tromethamine Allergy Intermediate unknown Verified 01/24/17 19:08 morphine Allergy Intermediate unknown Verified 01/24/17 19:08 orphenadrine citrate Allergy Intermediate unknown Verified 01/24/17 19:08 [From Norflex] iodine Allergy Mild ITCHING Verified 01/24/17 19:08 Travel Screening - Travel/Exposure Within Last 30 Days Have you traveled within the last 30 days?: No - Travel/Exposure Within Last Year Have you traveled outside the [place] in the last year?: No - Additonal Travel Details Have you been exposed to anyone with a communicable illness?: No - Travel Symptoms Symptom Screening: None Review of Systems Reviewed: No additional complaints except as noted below Constitutional: Reports: As per HPI. Denies: Chills, Fever, Malaise, Night sweats, Weakness, Weight change Eyes: Reports: As per HPI. Denies: Eye discharge, Eye pain, Photophobia, Vision change ENT: Reports: As per HPI. Denies: Congestion, Dental pain, Ear pain, Epistaxis , Hearing loss, Throat pain Respiratory: Reports: As per HPI. Denies: Cough, Dyspnea, Hemoptysis, Stridor, Wheezes Cardiovascular: Reports: As per HPI. Denies: Arrhythmia, Chest pain, Dyspnea on exertion, Edema, Murmurs, Orthopnea, Palpitations, Paroxysmal nocturnal dyspnea, Rheumatic Fever, Syncope Endocrine: Reports: As per HPI. Denies: Fatigue, Heat or cold intolerance, Polydipsia, Polyuria Gastrointestinal: Reports: As per HPI. Denies: Abdominal pain, Constipation, Diarrhea, Hematemesis, Hematochezia, Melena, Nausea, Vomiting Genitourinary: Reports: As per HPI. Denies: Dysuria, Frequency, Hematuria, Incontinence, Retention, Testicular pain, Testicular mass, Urgency Musculoskeletal: Reports: As per HPI. Denies: Arthralgia, Back pain, Gout, Joint swelling, Myalgia, Neck pain Skin: Reports: As per HPI. Denies: Bruising, Change in color, Change in hair/ nails, Lesions, Pruritus, Rash Neurological: Reports: As per HPI. Denies: Abnormal gait, Confusion, Headache, Numbness, Paresthesias, Seizure, Tingling, Tremors, Vertigo, Weakness Psychiatric: Reports: As per HPI. Denies: Anxiety, Auditory hallucinations, Depression, Homicidal thoughts, Suicidal thoughts, Visual hallucinations Hematological/Lymphatic: Reports: As per HPI. Denies: Anemia, Blood Clots, Easy bleeding, Easy bruising, Swollen glands Past Medical History - SOCIAL HISTORY Smoking Status: Former smoker Alcohol Use: None Drug Use: None - RESPIRATORY Hx Respiratory Disorders: Yes Hx Bronchitis: Yes Hx COPD: Yes Hx Dyspnea: Yes Hx Pneumonia: Yes Hx Sleep Apnea: Yes Hx of CPAP: Yes - CARDIOVASCULAR Hx Cardio Disorders: Yes Hx Cardiac Cath: Yes (3 stents) Hx CHF: No Hx Edema: No Hx Heart Attack: Yes (2007,2008) Hx Hypertension: Yes Hx Irregular Heartbeat: Yes (a-fib) Comment:: CAD; high cholesterol - NEURO Hx Neuro Disorders: Yes Hx Neuropathy: Yes Comment:: neuropathy in legs and arms - GI Hx GI Disorders: Yes Hx Reflux: Yes Hx Rectal Bleeding: Yes (hemorrhoids) Hx Ulcer: Yes Hx of Polyps: Yes - Hx Genitourinary Disorders: Yes Comment:: cysts in scrotum - ENDOCRINE Hx Endocrine Disorders: Yes Hx Diabetes: Yes - MUSCULOSKELETAL Hx Musculoskeletal Disorders: Yes Hx Fibromyalgia: Yes Comment:: chronic pain, spinal stenosis - PSYCH Hx Psych Problems: Yes Hx Anxiety: Yes Hx Depression: Yes - HEMATOLOGY/ONCOLOGY Hx Hematology/Oncology Disorders: No Family Medical History Any Significant Family History?: No Hx Anxiety: Brother/Sister Hx Dementia: Mother Hx Depression: Brother/Sister Hx Diabetes: Father, Mother Hx Heart Disease: Father, Mother Hx HTN: Father, Mother Hx Resp Disorders: Mother Hx Seizures: Children Hx Stroke: Mother *Stroke Comment: MOm-brain aneurysm Physical Exam - General General Appearance: Alert, Oriented x3, Cooperative, Mild distress - Head Head exam: Normal inspection - Eye Eye exam: Normal appearance, PERRL, EOMI Pupils: Normal accommodation - ENT ENT exam: Normal exam, Mucous membranes moist, Normal external ear exam, Normal orophraynx Ear exam: Normal external inspection. negative: External canal tenderness Nasal Exam: Normal inspection. negative: Discharge, Sinus tenderness Mouth exam: Normal external inspection, Tongue normal Teeth exam: Normal inspection. negative: Dental caries Throat exam: Normal inspection. negative: Tonsillar erythema, Tonsillar exudate - Neck Neck exam: Normal inspection, Full ROM. negative: Tenderness - Respiratory Respiratory exam: Rales. negative: Respiratory distress - Cardiovascular Cardiovascular Exam: Regular rate, Normal rhythm, Normal heart sounds - GI/Abdominal GI/Abdominal exam: Soft, Normal bowel sounds. negative: Tenderness - Rectal Rectal exam: Deferred - exam: Deferred - Extremities Extremities exam: Normal inspection, Full ROM, Normal capillary refill. negative: Tenderness - Back Back exam: Reports: Normal inspection, Full ROM. Denies: Muscle spasm, Rash noted, Tenderness - Neurological Neurological exam: Alert, CN II-XII intact, Normal gait, Oriented X3 - Psychiatric Psychiatric exam: Normal affect, Normal mood - Skin Skin exam: Dry, Intact, Normal color, Warm Course Vital Signs 03/05/17 03/05/17 19:40 19:57 Temperature 99.6 F Pulse Rate 92 H 98 H Respiratory 32 H 24 Rate Blood Pressure 143/76 Pulse Ox 92 L 93 L Medical Decision Making - Management Options MDM Management: No Additional Work-up Planned - Data Complexity MDM Data: Labs Ordered and/or Reviewed, X-Ray Ordered and/or Reviewed - Lab Data Result diagrams: 03/05/17 20:30 03/05/17 20:30 - Radiology Data Radiology results: Report reviewed, Image reviewed Disposition Disposition: Discharge Clinical Impression: Bronchitis Disposition: Home, Self-Care Condition: (1) Good Instructions: Acute Bronchitis (ED) Additional Instructions: follow up with family doctor. return sooner if worse. push fluids. call in am re INR. Prescriptions: Amoxicillin 500 mg PO TID #30 capsule Benzonatate [Tessalon] 1 cap PO Q8H PRN #10 cap PRN Reason: Cough Forms: Patient Portal Access
[2017-03-05 20:43] LABS: EOS % 0.5 % (0-6); GRAN % 63.8 % (47-80); HEMOGLOBIN 12.6 gm/dl (14.0-18.0); LYMPH % 28.6 % (16-45); MEAN CORPUSCULAR HEMOGLOBIN 26.8 pg (27-33); MEAN CORPUSCULAR HGB CONC 32.3 g/dl (32-36); MEAN PLATELET VOLUME 9.4 fl (7.4-10.4); MONO % 7.1 % (0-9); PLATELET COUNT 155 K/uL (130-400); RED CELL DISTRIBUTION WIDTH 16.3 % (11.5-14.5); WHITE BLOOD COUNT W/O DIFF 7.9 K/uL (4.2-12.2)
[2017-03-05 20:52] LABS: ANION GAP 9.1 (7-16); BLOOD UREA NITROGEN 10 mg/dL (9-20); CARBON DIOXIDE 22.9 mmol/L (22-30); CREATININE 0.9 mg/dL (0.66-1.25); EST GLOMERULAR FILTRATION RATE > 60 ml/min; GLUCOSE,RANDOM 127 mg/dL (70-110); INR 1.48; PROTHROMBIN TIME (PATIENT) 16.7 SECONDS (9.5-12.1)
[2017-03-05 20:58] LABS: INFLUENZA A NEGATIVE (NEGATIVE); INFLUENZA B NEGATIVE (NEGATIVE)
[2017-03-05] MEDS ORDERED: ACETAMINOPHEN 1,000 MG/100 ML BTL IVPB ONE (21:18)
[2017-03-05] MEDS ORDERED: ENOXAPARIN 100 MG/ML SYR SQ ONE (22:12)
[2017-03-05] MEDS ORDERED: AMOXICILLIN 500MG CAPSULE PO ONE (22:12)
[2017-03-05] MEDS ORDERED: BENZONATATE 100 MG CAPSULE PO ONE (22:12)
== END 2017-03-05 22:25 | disposition home or self-care (01) ==
LOC: ER 19:37
DX: J20.9 Acute bronchitis, unspecified (principal); R51 Headache; J02.9 Acute pharyngitis, unspecified; R11.2 Nausea with vomiting, unspecified; M54.2 Cervicalgia; R06.00 Dyspnea, unspecified; I48.91 Unspecified atrial fibrillation; Z87.891 Personal history of nicotine dependence
CPT/HCPCS: 71020; 80048; 85025; 85610; 87400; 96361; 96372; 96374; 99284; J1650; J2550; J7030

== ENCOUNTER 2017-04-12 15:39 | Emergency (ER) | payer MEDICARE, MEDICAID ==
--- NOTE | 2017-04-12 16:09 | Emergency Department Record ---
History of Present Illness - General Chief complaint: Lower Extremity Pain Stated complaint: BACK OF KNEE PAIN AND BEHIND PATELLA PAIN Time Seen by Provider: 04/12/17 16:03 Source: Patient Mode of Arrival: Wheelchair Limitations: No limitations - History of Present Illness Initial comments: 56 yo male presents to ED with a CC of right knee injury yesterday while walking to the elevator at [facility]. Patient reports pain behind the knee that came on suddenly. Patient reports pain with movement and ambulating, reports he has been taking Tylenol for his pain symptoms. Patient denies other injury, denies calf pain or swelling on examination. MD Complaint: Joint pain Onset/Timin -: Days(s) Location: Right, Knee Quality: Aching Consistency: Constant Improves with: Immobilization Worsens with: Walking, Weight bearing Associated Symptoms: Denies other symptoms - Related Data Home Medications Medication Instructions Recorded Confirmed Last Taken Atorvastatin Calcium [Lipitor] 40 mg PO DAILY 02/28/14 04/12/17 04/12/17 Nitroglycerin [Nitrostat] 0.4 mg SL ASDIR PRN 02/28/14 04/12/17 04/12/17 Cyclobenzaprine HCl [Flexeril] 10 mg PO TID 03/28/15 04/12/17 04/12/17 Pantoprazole Sodium [Protonix] 20 mg PO BID 08/05/15 04/12/17 04/12/17 Pregabalin [Lyrica] 150 mg PO BID 03/08/16 04/12/17 04/12/17 Warfarin Sodium [Coumadin] 2.5 mg PO DAILY 05/18/16 04/12/17 04/12/17 Amiodarone HCl [Pacerone] 200 mg PO BID 11/26/16 04/12/17 04/12/17 Aspirin [Ecotrin] 81 mg PO DAILY 11/26/16 04/12/17 04/12/17 Metformin HCl 500 mg PO DAILY 04/12/17 04/12/17 04/12/17 Metoprolol Tartrate [Lopressor] 12.5 mg PO BID 04/12/17 04/12/17 04/12/17 Allergies Allergy/AdvReac Type Severity Reaction Status Date / Time venom-honey bee Allergy Severe ANAPHYLAXIS Verified 01/24/17 19:08 [bee venom (honey bee)] diazepam [From Valium] Allergy Intermediate unknown Verified 01/24/17 19:08 fentanyl Allergy Intermediate ITCHING Verified 01/24/17 19:08 ketorolac tromethamine Allergy Intermediate unknown Verified 01/24/17 19:08 morphine Allergy Intermediate unknown Verified 01/24/17 19:08 orphenadrine citrate Allergy Intermediate unknown Verified 01/24/17 19:08 [From Norflex] iodine Allergy Mild ITCHING Verified 01/24/17 19:08 Travel Screening - Travel/Exposure Within Last 30 Days Have you traveled within the last 30 days?: No - Travel/Exposure Within Last Year Have you traveled outside the [place] in the last year?: No - Additonal Travel Details Have you been exposed to anyone with a communicable illness?: No - Travel Symptoms Symptom Screening: None Review of Systems Constitutional: Denies: Chills, Fever, Malaise, Night sweats Eyes: Denies: Eye discharge, Eye pain ENT: Denies: Congestion, Ear pain Respiratory: Denies: Cough, Dyspnea Cardiovascular: Denies: Chest pain, Dyspnea on exertion Endocrine: Denies: Fatigue, Heat or cold intolerance Gastrointestinal: Denies: Abdominal pain, Nausea, Vomiting Genitourinary: Denies: Incontinence, Retention Musculoskeletal: Reports: Arthralgia. Denies: Back pain, Gout, Joint swelling Skin: Denies: Bruising, Change in color Neurological: Denies: Abnormal gait, Confusion, Headache, Seizure Psychiatric: Denies: Anxiety Hematological/Lymphatic: Denies: Anemia, Blood Clots Past Medical History - SOCIAL HISTORY Smoking Status: Former smoker Alcohol Use: None Drug Use: None - RESPIRATORY Hx Respiratory Disorders: Yes Hx Bronchitis: Yes Hx COPD: Yes Hx Dyspnea: Yes Hx Pneumonia: Yes Hx Sleep Apnea: Yes Hx of CPAP: Yes - CARDIOVASCULAR Hx Cardio Disorders: Yes Hx Cardiac Cath: Yes (3 stents) Hx CHF: No Hx Edema: No Hx Heart Attack: Yes (2007,2008) Hx Hypertension: Yes Hx Irregular Heartbeat: Yes (a-fib) Comment:: CAD; high cholesterol - NEURO Hx Neuro Disorders: Yes Hx Neuropathy: Yes Comment:: neuropathy in legs and arms - GI Hx GI Disorders: Yes Hx Reflux: Yes Hx Rectal Bleeding: Yes (hemorrhoids) Hx Ulcer: Yes Hx of Polyps: Yes - Hx Genitourinary Disorders: Yes Comment:: cysts in scrotum - ENDOCRINE Hx Endocrine Disorders: Yes Hx Diabetes: Yes - MUSCULOSKELETAL Hx Musculoskeletal Disorders: Yes Hx Fibromyalgia: Yes Comment:: chronic pain, spinal stenosis - PSYCH Hx Psych Problems: Yes Hx Anxiety: Yes Hx Depression: Yes - HEMATOLOGY/ONCOLOGY Hx Hematology/Oncology Disorders: No Family Medical History Any Significant Family History?: No Hx Anxiety: Brother/Sister Hx Dementia: Mother Hx Depression: Brother/Sister Hx Diabetes: Father, Mother Hx Heart Disease: Father, Mother Hx HTN: Father, Mother Hx Resp Disorders: Mother Hx Seizures: Children Hx Stroke: Mother *Stroke Comment: MOm-brain aneurysm Physical Exam - General General Appearance: Alert, Oriented x3, Cooperative, No acute distress, Other ( reading the newspaper on examination) Limitations: No limitations - Head Head exam: Atraumatic, Normocephalic, Normal inspection Head exam detail: negative: Abrasion, Contusion, Kidd's sign, General tenderness, Hematoma, Laceration - Eye Eye exam: Normal appearance. negative: Conjunctival injection, Periorbital swelling, Periorbital tenderness, Scleral icterus - ENT Ear exam: negative: Auricular hematoma, Auricular trauma Nasal Exam: negative: Active bleeding, Discharge, Dried blood, Foreign body Mouth exam: negative: Drooling, Laceration, Muffled voice, Tongue elevation - Neck Neck exam: Normal inspection. negative: Meningismus, Tenderness - Respiratory Respiratory exam: Normal lung sounds bilaterally. negative: Rales, Respiratory distress, Rhonchi, Stridor - Cardiovascular Cardiovascular Exam: Regular rate, Normal rhythm, Normal heart sounds - GI/Abdominal GI/Abdominal exam: Soft. negative: Rebound, Rigid, Tenderness - Rectal Rectal exam: Deferred - exam: Deferred - Extremities Extremities exam: Tenderness, Other (TTP over the anterior patella, pain with ACL testing, however PCL/ACL/MCL/LCL are all stable on examination. No lower extremity edema noted.). negative: Calf tenderness, Joint swelling, Pedal edema - Back Back exam: Denies: CVA tenderness (R), CVA tenderness (L) - Neurological Neurological exam: Alert, Oriented X3 - Psychiatric Psychiatric exam: Normal affect, Normal mood - Skin Skin exam: Normal color. negative: Abrasion Type of lesion: negative: abrasion Course Vital Signs 04/12/17 15:42 Temperature 98.4 F Pulse Rate 63 Respiratory 20 Rate Blood Pressure 114/73 Pulse Ox 95 - Reevaluation(s) Reevaluation #1: 04/12/17 16:52 Right Knee: Small amount of supra-patellar fluid present, no osseosu abnormality noted. Patient was updated on all results, will administer knee immobilizer and crutches for his symptoms with instructions for follow-up in 3-5 days with his PCP. Patient appears stable for discharge at this time. Disposition Disposition: Discharge Clinical Impression: Knee strain Qualifiers: Encounter type: initial encounter Laterality: right Qualified Code(s): S86.911A - Strain of unspecified muscle(s) and tendon(s) at lower leg level, right leg, initial encounter Disposition: Home, Self-Care Condition: (2) Stable Instructions: Knee Pain (ED) Additional Instructions: Return to ED if your symptoms worsen or if you have any concerns. Knee immobilizer and crutches as directed. Follow-up with your family doctor in 3-5 days as directed. Forms: Patient Portal Access Time of Disposition: 16:39
--- NOTE | 2017-04-14 10:11 | RADIOLOGY REPORT ---
EXAM: RIGHT KNEE HISTORY: PATIENT HAS A HISTORY OF FALL. TECHNIQUE: Three views of the right knee are provided without comparison examinations. FINDINGS: There is no radiographic evidence of a fracture or dislocation of the right knee. Mild to moderate soft tissue swelling is noted superior to the patella. Mild suprapatellar bursal fluid is noted. IMPRESSION: MILD SUPRAPATELLAR BURSAL FLUID AND SOFT TISSUE SWELLING IS NOTED WITHOUT RADIOGRAPHIC EVIDENCE OF A FRACTURE OR DISLOCATION OF THE RIGHT KNEE. JOB NUMBER: [id number] [facility]
== END 2017-04-12 17:11 | disposition home or self-care (01) ==
LOC: ER 15:39
DX: S86.911A Strain of unspecified muscle(s) and tendon(s) at lower leg level, right leg, initial encounter (principal); X50.9XXA Other and unspecified overexertion or strenuous movements or postures, initial encounter; Y92.238 Other place in hospital as the place of occurrence of the external cause
CPT/HCPCS: 99283

== ENCOUNTER 2017-04-20 14:09 | Emergency (ER) | payer MEDICARE, MEDICAID ==
--- NOTE | 2017-04-20 14:27 | Emergency Department Record ---
History of Present Illness - General Chief Complaint: Chest Pain Stated Complaint: CHEST PAIN Time Seen by Provider: 04/20/17 14:19 Source: Patient Mode of Arrival: Ambulatory Limitations: No limitations - History of Present Illness Initial Comments: 56 yo male presents with sternal chest pain that started on Friday. He states the pain has been constant. No shortness of breath. No cough or fevers. No nausea, vomiting or diarrhea. He does complain of back pain that is chronic in nature and unchanged. The patient has known CAD, frequent visits for chest pain , sternal pain to to chronic pectus excavtum. 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 No leg swelling or leg pain. No current abdominal pain. The pain is worse with pushing on the sternum over the left border. It hurts to move, twist , lift. MD Complaint: Chest pain, Other (Sternal Pain) Onset/Timin -: Days(s) Onset: Awoke with symptoms Pain Location: Substernal Pain Radiation: None Severity: Severe Quality: Sharp Consistency: Constant Improves With: Nothing Worsens With: Nothing Treatments Prior to Arrival: Aspirin - Related Data Home Medications Medication Instructions Recorded Confirmed Last Taken Atorvastatin Calcium [Lipitor] 40 mg PO DAILY 02/28/14 04/20/17 04/20/17 Nitroglycerin [Nitrostat] 0.4 mg SL ASDIR PRN 02/28/14 04/20/17 04/20/17 Cyclobenzaprine HCl [Flexeril] 10 mg PO TID 03/28/15 04/20/17 04/20/17 Pantoprazole Sodium [Protonix] 20 mg PO BID 08/05/15 04/20/17 04/20/17 Pregabalin [Lyrica] 150 mg PO BID 03/08/16 04/20/17 04/20/17 Warfarin Sodium [Coumadin] 2.5 mg PO DAILY 05/18/16 04/20/17 04/20/17 Amiodarone HCl [Pacerone] 200 mg PO BID 11/26/16 04/20/17 04/20/17 Aspirin [Ecotrin] 81 mg PO DAILY 11/26/16 04/20/17 04/20/17 Metformin HCl 500 mg PO DAILY 04/12/17 04/20/17 04/20/17 Metoprolol Tartrate [Lopressor] 12.5 mg PO BID 04/12/17 04/20/17 04/20/17 Allergies Allergy/AdvReac Type Severity Reaction Status Date / Time venom-honey bee Allergy Severe ANAPHYLAXIS Verified 04/20/17 14:15 [bee venom (honey bee)] diazepam [From Valium] Allergy Intermediate unknown Verified 04/20/17 14:15 fentanyl Allergy Intermediate ITCHING Verified 04/20/17 14:15 ketorolac tromethamine Allergy Intermediate unknown Verified 04/20/17 14:15 morphine Allergy Intermediate unknown Verified 04/20/17 14:15 orphenadrine citrate Allergy Intermediate unknown Verified 04/20/17 14:15 [From Norflex] iodine Allergy Mild ITCHING Verified 04/20/17 14:15 Travel Screening - Travel/Exposure Within Last 30 Days Have you traveled within the last 30 days?: No Review of Systems Constitutional: Denies: Chills, Fever, Weakness Eyes: Denies: Eye discharge, Eye pain, Vision change ENT: Denies: Congestion, Throat pain Respiratory: Denies: Cough, Dyspnea, Hemoptysis, Stridor, Wheezes Cardiovascular: Reports: Chest pain. Denies: Dyspnea on exertion, Edema, Orthopnea, Palpitations, Syncope Endocrine: Denies: Fatigue Gastrointestinal: Denies: Abdominal pain, Diarrhea, Nausea, Vomiting Genitourinary: Denies: Dysuria, Frequency, Hematuria Musculoskeletal: Reports: Back pain (chronic). Denies: Arthralgia, Joint swelling, Myalgia, Neck pain Skin: Denies: Bruising, Change in color, Pruritus Neurological: Denies: Headache, Numbness, Vertigo, Weakness Psychiatric: Denies: Anxiety Hematological/Lymphatic: Denies: Blood Clots, Easy bleeding, Easy bruising Past Medical History - SOCIAL HISTORY Smoking Status: Former smoker Alcohol Use: None Drug Use: None - RESPIRATORY Hx Respiratory Disorders: Yes Hx Bronchitis: Yes Hx COPD: Yes Hx Dyspnea: Yes Hx Pneumonia: Yes Hx Sleep Apnea: Yes Hx of CPAP: Yes - CARDIOVASCULAR Hx Cardio Disorders: Yes Hx Cardiac Cath: Yes (3 stents) Hx CHF: No Hx Edema: No Hx Heart Attack: Yes (2007,2008) Hx Hypertension: Yes Hx Irregular Heartbeat: Yes (a-fib) Comment:: CAD; high cholesterol - NEURO Hx Neuro Disorders: Yes Hx Neuropathy: Yes Comment:: neuropathy in legs and arms - GI Hx GI Disorders: Yes Hx Reflux: Yes Hx Rectal Bleeding: Yes (hemorrhoids) Hx Ulcer: Yes Hx of Polyps: Yes - Hx Genitourinary Disorders: Yes Comment:: cysts in scrotum - ENDOCRINE Hx Endocrine Disorders: Yes Hx Diabetes: Yes - MUSCULOSKELETAL Hx Musculoskeletal Disorders: Yes Hx Fibromyalgia: Yes Comment:: chronic pain, spinal stenosis - PSYCH Hx Psych Problems: Yes Hx Anxiety: Yes Hx Depression: Yes - HEMATOLOGY/ONCOLOGY Hx Hematology/Oncology Disorders: No Family Medical History Any Significant Family History?: Yes Hx Anxiety: Brother/Sister Hx Dementia: Mother Hx Depression: Brother/Sister Hx Diabetes: Father, Mother Hx Heart Disease: Father, Mother Hx HTN: Father, Mother Hx Resp Disorders: Mother Hx Seizures: Children Hx Stroke: Mother *Stroke Comment: MOm-brain aneurysm Physical Exam - General General Appearance: Alert, Oriented x3, Cooperative, No acute distress, Other ( sitting comfortably, no acute distress) Limitations: No limitations - Head Head exam: Atraumatic, Normocephalic, Normal inspection - Eye Eye exam: Normal appearance, PERRL. negative: Conjunctival injection, Periorbital swelling - ENT ENT exam: Normal exam Ear exam: Normal external inspection Nasal Exam: Normal inspection Mouth exam: Normal external inspection - Neck Neck exam: Normal inspection - Respiratory Respiratory exam: Normal lung sounds bilaterally, Chest wall tenderness (tender mid sternal area, reproducible on palpaiton). negative: Accessory muscle use, Decreased breath sounds, Rhonchi - Cardiovascular Cardiovascular Exam: Regular rate, Normal rhythm, Normal heart sounds. negative : Diastolic murmur, Systolic murmur Peripheral Pulses: 2+: Radial (R), Radial (L) - GI/Abdominal GI/Abdominal exam: Soft. negative: Distended, Guarding, Rebound, Tenderness - Rectal Rectal exam: Deferred - exam: Deferred - Extremities Extremities exam: Normal inspection, Full ROM, Normal capillary refill. negative: Calf tenderness, Pedal edema, Tenderness - Back Back exam: Reports: Normal inspection, Full ROM. Denies: CVA tenderness (R), CVA tenderness (L), Muscle spasm, Rash noted, Tenderness - Neurological Neurological exam: Alert, Normal gait, Oriented X3 - Psychiatric Psychiatric exam: Normal affect, Normal mood. negative: Agitated, Anxious - Skin Skin exam: Dry, Intact, Normal color, Warm Course Vital Signs 04/20/17 14:14 Temperature 97.5 F L Pulse Rate 58 L Respiratory 20 Rate Blood Pressure 115/74 Pulse Ox 95 - Reevaluation(s) Reevaluation #1: vitals reviewed No tachycardia, BP reviewed, no hypoxia EKG 14:16 NSR rate 55, intervals CW RBBB(old-chronic), [place] normal, ST No acute changes, changes are consistent with RBBB. No changes on todays EKG compared to 03/04/17 and multiple others. He does have atrial fib on some prior EKG's but no atrial fibrillation today. 04/20/17 14:24 Reevaluation #2: The labs were reviewed No acute changes on the CBC,CMP,Troponin The pain has been constant and atypical with sternal reproducibility. His INR is 1.0. He admits to not taking it for his Afib for 5 days. 04/20/17 15:16 04/20/17 16:23 The patient was checked on multiple times He has been comfortably sleeping. I woke him. He states the pain is same location. 04/20/17 18:17 The second Troponin has been sent The examination is unchanged. He has very reproducible pain on the left chest and left arm with any palpation or movement. Reevaluation #3: The repeat Troponin was negative for any acute change The pain is very atypical for cardiac with movement and palpation worsening the pain with no changes on the EKG and negative Troponins X's 2 after 3 days of constant discomfort. DC home to followup with his PCP 04/20/17 18:24 Medical Decision Making - Lab Data Result diagrams: 04/20/17 14:40 04/20/17 14:40 Disposition Disposition: Discharge Clinical Impression: Atypical chest pain, Chest wall pain Disposition: Home, Self-Care Condition: (1) Good Instructions: Chest Wall Pain (ED), Chest Pain (ED) Additional Instructions: Call your doctor Friday for close follow up Return if worse, short of breath, fever, any new concerns Return sooner if you have fever, cough, short of breath or any new concerns. Forms: Patient Portal Access Time of Disposition: 18:27
[2017-04-20] MEDS ORDERED: ACETAMINOPHEN 1,000 MG/100 ML BTL IVPB ONE (14:32)
[2017-04-20 14:51] LABS: BASO % 0.3 % (0-6); EOS % 2.4 % (0-6); GRAN % 40.4 % (47-80); HEMATOCRIT 40.3 % (42.0-52.0); HEMOGLOBIN 12.7 gm/dl (14.0-18.0); MEAN CELL VOLUME 83.1 fl (81-97); MEAN CORPUSCULAR HGB CONC 31.5 g/dl (32-36); MEAN PLATELET VOLUME 9.5 fl (7.4-10.4); MONO % 8.9 % (0-9); PLATELET COUNT 146 K/uL (130-400); RED BLOOD COUNT 4.85 M/uL (4.40-5.70); RED CELL DISTRIBUTION WIDTH 16.2 % (11.5-14.5); WHITE BLOOD COUNT W/O DIFF 3.8 K/uL (4.2-12.2)
[2017-04-20 14:55] LABS: MEAN CORPUSCULAR HEMOGLOBIN 26.1 pg (27-33)
[2017-04-20 15:01] LABS: ALB/GLOB RATIO 1.1 (1.1-1.8); ALKALINE PHOSPHATASE 139 U/L (38-126); ALT/SGPT 31 U/L (21-72); ANION GAP 9.1 (7-16); AST/SGOT 47 U/L (17-59); BILIRUBIN,TOTAL 1.08 mg/dL (0.2-1.3); BLOOD UREA NITROGEN 12 mg/dL (9-20); CARBON DIOXIDE 23.9 mmol/L (22-30); CREATINE PHOSPHOKINASE 94 U/L (55-170); CREATININE 0.8 mg/dL (0.66-1.25); EST GLOMERULAR FILTRATION RATE > 60 ml/min; GLUCOSE,RANDOM 113 mg/dL (70-110); TOTAL PROTEIN 7.5 gm/dL (6.3-8.2)
[2017-04-20 15:05] LABS: INR 1.03; PARTIAL THROMBOPLASTIN TIME 30.5 SECONDS (24.5-39.1); PROTHROMBIN TIME (PATIENT) 11.6 SECONDS (9.5-12.1)
[2017-04-20 15:13] LABS: CKMB 2.9 ug/L (0-6)
[2017-04-20 15:14] LABS: TROPONIN I < 0.012 ng/mL (0.00-0.034)
[2017-04-20] MEDS ORDERED: CYCLOBENZAPRINE 10MG TABLET PO ONE (18:17)
== END 2017-04-20 18:37 | disposition home or self-care (01) ==
LOC: ER 14:09
DX: R07.89 Other chest pain (principal); I48.91 Unspecified atrial fibrillation; I25.10 Atherosclerotic heart disease of native coronary artery without angina pectoris; I10 Essential (primary) hypertension; I25.2 Old myocardial infarction; Z87.891 Personal history of nicotine dependence
CPT/HCPCS: 80053; 82550; 82553; 84484; 85025; 85610; 85730; 93005; 93010; 96374; 99284

== ENCOUNTER 2017-05-08 14:22 | Emergency (ER) | payer MEDICARE, MEDICAID ==
--- NOTE | 2017-05-08 14:45 | Emergency Department Record ---
History of Present Illness - General Chief Complaint: Neck Injury/Pain Stated Complaint: NECK PAIN Time Seen by Provider: 05/08/17 14:45 Source: Patient Mode of Arrival: Ambulatory Limitations: No limitations - History of Present Illness Initial Comments: The patient is here due to neck pain. He has a LONG hx of chronic neck pain and has had dozens of visits for similar pain to multiple hospitals. Today he states he was turning his head and felt a "crack" and then pain. There is no radiation of the pain down the arms or leg and he denies any leg numbness or weakness. He is ambulating normally with no difficulty walking or any bowel or bladder issues. The patient denies any trauma, injury, or falls. MD Complaint: Neck pain Onset/Timin -: Minutes(s) Place: Home Radiation: Other Severity scale (1-10): 10 Quality: Aching Consistency: Constant Improves With: None Worsens With: Movement of neck, Other Context: Unknown Associated Symptoms: None - Related Data Home Medications Medication Instructions Recorded Confirmed Last Taken Atorvastatin Calcium [Lipitor] 40 mg PO DAILY 02/28/14 05/08/17 05/08/17 Nitroglycerin [Nitrostat] 0.4 mg SL ASDIR PRN 02/28/14 05/08/17 04/20/17 Cyclobenzaprine HCl [Flexeril] 10 mg PO TID 03/28/15 05/08/17 05/08/17 Pantoprazole Sodium [Protonix] 20 mg PO BID 08/05/15 05/08/17 05/08/17 Pregabalin [Lyrica] 150 mg PO BID 03/08/16 05/08/17 05/08/17 Warfarin Sodium [Coumadin] 2.5 mg PO DAILY 05/18/16 05/08/17 05/08/17 Amiodarone HCl [Pacerone] 200 mg PO BID 11/26/16 05/08/17 05/08/17 Aspirin [Ecotrin] 81 mg PO DAILY 11/26/16 05/08/17 05/08/17 Metformin HCl 500 mg PO DAILY 04/12/17 05/08/17 05/08/17 Metoprolol Tartrate [Lopressor] 12.5 mg PO BID 04/12/17 05/08/17 05/08/17 Previous Rx's Medication Instructions Recorded Methylprednisolone [Medrol Dose 4 mg PO DAILY #1 tab.ds.pk 05/08/17 Pack] Allergies Allergy/AdvReac Type Severity Reaction Status Date / Time venom-honey bee Allergy Severe ANAPHYLAXIS Verified 04/20/17 14:15 [bee venom (honey bee)] diazepam [From Valium] Allergy Intermediate unknown Verified 04/20/17 14:15 fentanyl Allergy Intermediate ITCHING Verified 04/20/17 14:15 ketorolac tromethamine Allergy Intermediate unknown Verified 04/20/17 14:15 morphine Allergy Intermediate unknown Verified 04/20/17 14:15 orphenadrine citrate Allergy Intermediate unknown Verified 04/20/17 14:15 [From Norflex] iodine Allergy Mild ITCHING Verified 04/20/17 14:15 Travel Screening - Travel/Exposure Within Last 30 Days Have you traveled within the last 30 days?: No - Travel/Exposure Within Last Year Have you traveled outside the [place] in the last year?: No - Additonal Travel Details Have you been exposed to anyone with a communicable illness?: No - Travel Symptoms Symptom Screening: None Review of Systems Constitutional: Denies: Chills, Fever Eyes: Denies: Eye discharge ENT: Denies: Congestion Respiratory: Denies: Cough, Dyspnea Past Medical History - SOCIAL HISTORY Smoking Status: Former smoker Alcohol Use: None Drug Use: None - RESPIRATORY Hx Respiratory Disorders: Yes Hx Bronchitis: Yes Hx COPD: Yes Hx Dyspnea: Yes Hx Pneumonia: Yes Hx Sleep Apnea: Yes Hx of CPAP: Yes - CARDIOVASCULAR Hx Cardio Disorders: Yes Hx Cardiac Cath: Yes (3 stents) Hx CHF: No Hx Edema: No Hx Heart Attack: Yes (2007,2008) Hx Hypertension: Yes Hx Irregular Heartbeat: Yes (a-fib) Comment:: CAD; high cholesterol - NEURO Hx Neuro Disorders: Yes Hx Neuropathy: Yes Comment:: neuropathy in legs and arms - GI Hx GI Disorders: Yes Hx Reflux: Yes Hx Rectal Bleeding: Yes (hemorrhoids) Hx Ulcer: Yes Hx of Polyps: Yes - Hx Genitourinary Disorders: Yes Comment:: cysts in scrotum - ENDOCRINE Hx Endocrine Disorders: Yes Hx Diabetes: Yes - MUSCULOSKELETAL Hx Musculoskeletal Disorders: Yes Hx Fibromyalgia: Yes Comment:: chronic pain, spinal stenosis - PSYCH Hx Psych Problems: Yes Hx Anxiety: Yes Hx Depression: Yes - HEMATOLOGY/ONCOLOGY Hx Hematology/Oncology Disorders: No Family Medical History Any Significant Family History?: No Hx Anxiety: Brother/Sister Hx Dementia: Mother Hx Depression: Brother/Sister Hx Diabetes: Father, Mother Hx Heart Disease: Father, Mother Hx HTN: Father, Mother Hx Resp Disorders: Mother Hx Seizures: Children Hx Stroke: Mother *Stroke Comment: MOm-brain aneurysm Physical Exam - General General Appearance: Alert, Oriented x3, Cooperative, Mild distress - Head Head exam: Atraumatic, Normocephalic, Normal inspection - Eye Eye exam: Normal appearance, PERRL - Neck Neck exam: Normal inspection, Tenderness (There is diffuse posterior cervical paraspinal tenderness with mild spinal tenderness.). negative: Full ROM - Respiratory Respiratory exam: Normal lung sounds bilaterally. negative: Respiratory distress - Cardiovascular Cardiovascular Exam: Regular rate, Normal rhythm, Normal heart sounds - GI/Abdominal GI/Abdominal exam: Soft, Normal bowel sounds. negative: Tenderness - Extremities Extremities exam: Normal inspection, Full ROM, Normal capillary refill. negative: Tenderness - Neurological Neurological exam: Alert, Normal gait, Oriented X3, Reflexes normal. negative: Abnormal gait, Altered, Motor sensory deficit (Motor and Sensory are 5/5 upper and lower extremities.) - Psychiatric Psychiatric exam: negative: Anxious - Skin Skin exam: negative: Rash Course Vital Signs 05/08/17 14:37 Temperature 97.6 F Pulse Rate 68 Respiratory 16 Rate Blood Pressure 133/87 Pulse Ox 98 - Reevaluation(s) Reevaluation #1: The patient states the pain is not improved with the Tylenol. He states he is allergic to Toradol and Norflex but Dilaudid works well for him. I explained to him that I do not use Dilaudid for chronic pain which this clearly is. We will xray his neck to be sure there are no anatomic abnormalities that could be causing this issue. 05/08/17 15:53 Reevaluation #2: The patient is resting more comfortably. I did discuss the abnormalities on his Cervical CT and the need for F/U. His CT does demonstrate multiple degenerative abnormalities but they are unchanged from the CT dated 03/18/17 and 11/26/16. Due to the fact the patient has no neurological abnormalities or deficits I do not feel the cervical condition is any worse. He is to F/U with his PCP for further care and pain medicines. 05/08/17 16:45 Reevaluation #3: I did discuss the Cervical CT with Dr. Leiva ([facility]). He does agree with the plan to discharge and does agree with outpatient follow up in his office to have the cervical spine dz evaluated further. 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 Disc protrusion at C2-3 causing indentation of the thecal sac. No change from old CT's.) Disposition Disposition: Discharge Clinical Impression: Chronic cervical pain Disposition: Home, Self-Care Condition: (1) Good Instructions: Chronic Pain (ED) Additional Instructions: Please take your home pain medicines and may use the [place] as directed along with the Medrol Dose pack. Please see your PCP for recheck and for a possible Spine Surgeon referral. Return to the ER for any increasing neck pain, arm or leg numbness, weakness or any bowel or bladder incontinence or inability to urinate or defecate. Please call [facility] for follow up due to the neck arthritis. Prescriptions: Methylprednisolone [Medrol Dose Pack] 4 mg PO DAILY #1 tab.ds.pk Referrals: NARCISO LEIVA [] - Forms: Patient Portal Access Time of Disposition: 16:52 Quality - Quality Measures Quality Measures: N/A - Blood Pressure Screening View Details: Yes Blood Pressure Classification: Pre-Hypertensive BP Reading Systolic Measurement: 133 Diastolic Measurement: 87 Screening for High Blood Pressure: < Pre-Hypertensive BP, F/U Documented > [ G8950] Pre-Hypertensive Follow-up Interventions: Follow-up with rescreen every year.
[2017-05-08] MEDS ORDERED: ACETAMINOPHEN 325 MG TAB PO ONE (14:47)
[2017-05-08 15:08] LABS: HEMATOCRIT 41.3 % (42.0-52.0); HEMOGLOBIN 13.6 gm/dl (14.0-18.0); MEAN CELL VOLUME 83.9 fl (81-97); MEAN CORPUSCULAR HEMOGLOBIN 27.6 pg (27-33); MEAN CORPUSCULAR HGB CONC 32.9 g/dl (32-36); MEAN PLATELET VOLUME 9.2 fl (7.4-10.4); PLATELET COUNT 145 K/uL (130-400); RED BLOOD COUNT 4.92 M/uL (4.40-5.70); RED CELL DISTRIBUTION WIDTH 16.6 % (11.5-14.5); WHITE BLOOD COUNT W/O DIFF 4.6 K/uL (4.2-12.2)
[2017-05-08 15:19] LABS: ANION GAP 11.7 (7-16); BLOOD UREA NITROGEN 10 mg/dL (9-20); CARBON DIOXIDE 21.3 mmol/L (22-30); CREATININE 0.8 mg/dL (0.66-1.25); EST GLOMERULAR FILTRATION RATE > 60 ml/min; GLUCOSE,RANDOM 110 mg/dL (70-110)
[2017-05-08 15:20] LABS: PLATELET ESTIMATE NORMAL (NORMAL)
[2017-05-08 15:21] LABS: INR 0.95; PARTIAL THROMBOPLASTIN TIME 28.7 SECONDS (24.5-39.1); PROTHROMBIN TIME (PATIENT) 10.7 SECONDS (9.5-12.1)
[2017-05-08] MEDS: HYDROCODONE/APAP 5/325MG TABLET PO ONE ×4 (16:47→17:03)
--- NOTE | 2017-05-09 13:01 | CT SCAN REPORT ---
EXAM: CERVICAL SPINE CT WITH TWO DIMENSIONAL REFORMATS HISTORY: FELT POP AFTER TURNING NECK, PERSISTENT NECK PAIN. TECHNIQUE: Contiguous axial images from the skull base to the T2 level were obtained without contrast. Sagittal and coronal two dimensional reformatted images were obtained for better anatomic delineation. Comparison: Cervical spine radiographs 05/10/02. Cervical spine CT performed . FINDINGS: Moderate reversal of the normal cervical lordosis. No acute fracture or subluxation. Moderate degenerative disk disease at C3-C4 and C5-C6 manifested by disk space narrowing and end plate osteophytes. Mild disk disease at the remaining levels. CT is not sensitive for disk pathology. At the C2-C3 level: Central disk protrusion measuring 4.4 mm in AP dimension x 5.5 mm broad. Indentation of the ventral cord. Moderate to severe central canal stenosis with the thecal sac measuring 6 mm in AP dimension. No neural foraminal stenosis. At the C3-C4 level: Small posterior disk osteophyte complex with facet and uncovertebral joint hypertrophy. Mild to moderate central canal stenosis with the thecal sac measuring 8 mm in AP dimension. Severe right lateral neural foraminal stenosis. At the C4-C5 level: Mild central canal stenosis with the thecal sac measuring 9 mm in AP dimension. No neural foraminal stenosis. At the C5-C6 level: Mild central canal stenosis with the thecal sac measuring 9 mm in AP dimension. Minimal bilateral neural foraminal stenosis. At the C6-C7 level: Mild central canal stenosis with the thecal sac measuring 9 mm in AP dimension. Facet and uncovertebral joint hypertrophy with mild to moderate bilateral neural foraminal stenosis. At the C7-T1 level: unremarkable. The soft tissues of the cervical region are unremarkable. The lung apices are clear. IMPRESSION: 1. PROBABLE DEVELOPMENTAL NARROWING OF THE MID TO UPPER CERVICAL SPINAL CANAL WITH SUPERIMPOSED DEGENERATIVE CHANGE. THERE IS A CENTRAL DISK PROTRUSION AT C2 -C3 INDENTING THE VENTRAL CORD AND RESULTING INTO MODERATE TO SEVERE CENTRAL CANAL STENOSIS. FINDINGS MAY BE SYMPTOMATIC. 2. MILD TO MODERATE CENTRAL CANAL STENOSIS AT C3-C4. MILD CENTRAL CANAL STENOSIS FROM C4-C5 TO C6-C7. 3. VARYING DEGREES OF NEURAL FORAMINAL STENOSIS MOST SEVERE AT C3-C4. JOB NUMBER: [id number] AND [id number] [facility]
== END 2017-05-08 17:06 | disposition home or self-care (01) ==
LOC: ER 14:22
DX: G89.29 Other chronic pain (principal); M54.2 Cervicalgia; I10 Essential (primary) hypertension; I25.2 Old myocardial infarction; Z79.01 Long term (current) use of anticoagulants; Z87.891 Personal history of nicotine dependence
CPT/HCPCS: 72125; 80048; 85027; 85610; 85730; 99283; 99284

== ENCOUNTER 2017-06-06 11:34 | Emergency (ER) | payer MEDICARE, MEDICAID ==
--- NOTE | 2017-06-06 11:59 | Emergency Department Record ---
History of Present Illness - General Chief Complaint: Neck Injury/Pain Stated Complaint: NECK PAIN Time Seen by Provider: 06/06/17 11:43 Mode of Arrival: Ambulatory - History of Present Illness Initial Comments: patient having chronic neck pain and seen here about one month ago and had a CT scan o neck which I reviewed and it shows stable DGD. Patient states his neck feels the same as last month and no new injuries. Patient has an appointment with his primary Dr. mendoza jun 10 and he has been using heat on his neck. No problems with eating ,BMs or urinating. No wakness in arms or legs. MD Complaint: Neck pain Onset/Timin -: Hour(s) Place: Home Severity: Moderate, Similar to prior neck pain Severity scale (1-10): 9 Quality: Sharp Consistency: Constant Improves With: None Worsens With: None Context: Unknown Associated Symptoms: None Treatments Prior to Arrival: Acetaminophen Treatment Prior to Arrival Comment:: tylenol and flexeril - Related Data Home Medications Medication Instructions Recorded Confirmed Last Taken Atorvastatin Calcium [Lipitor] 40 mg PO DAILY 02/28/14 06/06/17 05/08/17 Nitroglycerin [Nitrostat] 0.4 mg SL ASDIR PRN 02/28/14 06/06/17 04/20/17 Cyclobenzaprine HCl [Flexeril] 10 mg PO TID 03/28/15 06/06/17 05/08/17 Pantoprazole Sodium [Protonix] 20 mg PO BID 08/05/15 06/06/17 05/08/17 Pregabalin [Lyrica] 150 mg PO BID 03/08/16 06/06/17 05/08/17 Warfarin Sodium [Coumadin] 2.5 mg PO DAILY 05/18/16 06/06/17 05/08/17 Amiodarone HCl [Pacerone] 200 mg PO BID 11/26/16 06/06/17 05/08/17 Aspirin [Ecotrin] 81 mg PO DAILY 11/26/16 06/06/17 05/08/17 Metformin HCl 500 mg PO DAILY 04/12/17 06/06/17 05/08/17 Metoprolol Tartrate [Lopressor] 12.5 mg PO BID 04/12/17 06/06/17 05/08/17 Allergies Allergy/AdvReac Type Severity Reaction Status Date / Time venom-honey bee Allergy Severe ANAPHYLAXIS Verified 04/20/17 14:15 [bee venom (honey bee)] diazepam [From Valium] Allergy Intermediate unknown Verified 04/20/17 14:15 fentanyl Allergy Intermediate ITCHING Verified 04/20/17 14:15 ketorolac tromethamine Allergy Intermediate unknown Verified 04/20/17 14:15 morphine Allergy Intermediate unknown Verified 04/20/17 14:15 orphenadrine citrate Allergy Intermediate unknown Verified 04/20/17 14:15 [From Norflex] iodine Allergy Mild ITCHING Verified 04/20/17 14:15 Travel Screening - Travel/Exposure Within Last 30 Days Have you traveled within the last 30 days?: No Review of Systems Reviewed: No additional complaints except as noted below Constitutional: Reports: As per HPI. Denies: Chills, Fever, Malaise, Night sweats, Weakness, Weight change Eyes: Reports: As per HPI. Denies: Eye discharge, Eye pain, Photophobia, Vision change ENT: Reports: As per HPI. Denies: Congestion, Dental pain, Ear pain, Epistaxis , Hearing loss, Throat pain Respiratory: Reports: As per HPI. Denies: Cough, Dyspnea, Hemoptysis, Stridor, Wheezes Cardiovascular: Reports: As per HPI. Denies: Arrhythmia, Chest pain, Dyspnea on exertion, Edema, Murmurs, Orthopnea, Palpitations, Paroxysmal nocturnal dyspnea, Rheumatic Fever, Syncope Endocrine: Reports: As per HPI. Denies: Fatigue, Heat or cold intolerance, Polydipsia, Polyuria Gastrointestinal: Reports: As per HPI. Denies: Abdominal pain, Constipation, Diarrhea, Hematemesis, Hematochezia, Melena, Nausea, Vomiting Genitourinary: Reports: As per HPI. Denies: Dysuria, Frequency, Hematuria, Incontinence, Retention, Testicular pain, Testicular mass, Urgency Musculoskeletal: Reports: As per HPI. Denies: Arthralgia, Back pain, Gout, Joint swelling, Myalgia, Neck pain Skin: Reports: As per HPI. Denies: Bruising, Change in color, Change in hair/ nails, Lesions, Pruritus, Rash Neurological: Reports: As per HPI. Denies: Abnormal gait, Confusion, Headache, Numbness, Paresthesias, Seizure, Tingling, Tremors, Vertigo, Weakness Psychiatric: Reports: As per HPI. Denies: Anxiety, Auditory hallucinations, Depression, Homicidal thoughts, Suicidal thoughts, Visual hallucinations Hematological/Lymphatic: Reports: As per HPI. Denies: Anemia, Blood Clots, Easy bleeding, Easy bruising, Swollen glands Past Medical History - SOCIAL HISTORY Smoking Status: Former smoker - RESPIRATORY Hx Respiratory Disorders: Yes Hx Bronchitis: Yes Hx COPD: Yes Hx Dyspnea: Yes Hx Pneumonia: Yes Hx Sleep Apnea: Yes Hx of CPAP: Yes - CARDIOVASCULAR Hx Cardio Disorders: Yes Hx Cardiac Cath: Yes (3 stents) Hx CHF: No Hx Edema: No Hx Heart Attack: Yes (2007,2008) Hx Hypertension: Yes Hx Irregular Heartbeat: Yes (a-fib) Comment:: CAD; high cholesterol - NEURO Hx Neuro Disorders: Yes Hx Neuropathy: Yes Comment:: neuropathy in legs and arms - GI Hx GI Disorders: Yes Hx Reflux: Yes Hx Rectal Bleeding: Yes (hemorrhoids) Hx Ulcer: Yes Hx of Polyps: Yes - Hx Genitourinary Disorders: Yes Comment:: cysts in scrotum - ENDOCRINE Hx Endocrine Disorders: Yes Hx Diabetes: Yes - MUSCULOSKELETAL Hx Musculoskeletal Disorders: Yes Hx Fibromyalgia: Yes Comment:: chronic pain, spinal stenosis - PSYCH Hx Psych Problems: Yes Hx Anxiety: Yes Hx Depression: Yes - HEMATOLOGY/ONCOLOGY Hx Hematology/Oncology Disorders: No Family Medical History Any Significant Family History?: Yes Hx Anxiety: Brother/Sister Hx Dementia: Mother Hx Depression: Brother/Sister Hx Diabetes: Father, Mother Hx Heart Disease: Father, Mother Hx HTN: Father, Mother Hx Resp Disorders: Mother Hx Seizures: Children Hx Stroke: Mother *Stroke Comment: MOm-brain aneurysm Physical Exam - General General Appearance: Alert, Oriented x3, Cooperative, No acute distress - Head Head exam: Normal inspection - Eye Eye exam: Normal appearance, PERRL Pupils: Normal accommodation - ENT ENT exam: Normal exam, Mucous membranes moist, Normal external ear exam, Normal orophraynx, TM's normal bilaterally Ear exam: Normal external inspection. negative: External canal tenderness Nasal Exam: Normal inspection. negative: Discharge, Sinus tenderness Mouth exam: Normal external inspection, Tongue normal Teeth exam: Normal inspection. negative: Dental caries Throat exam: Normal inspection. negative: Tonsillar erythema, Tonsillar exudate - Neck Neck exam: Normal inspection, Full ROM, Tenderness (right side of neck muscle spasm) - Respiratory Respiratory exam: Normal lung sounds bilaterally. negative: Respiratory distress - Cardiovascular Cardiovascular Exam: Regular rate, Normal rhythm, Normal heart sounds - GI/Abdominal GI/Abdominal exam: Soft, Normal bowel sounds. negative: Tenderness - Rectal Rectal exam: Deferred - exam: Deferred - Extremities Extremities exam: Normal inspection, Full ROM, Normal capillary refill. negative: Tenderness - Back Back exam: Reports: Normal inspection, Full ROM. Denies: Muscle spasm, Rash noted, Tenderness - Neurological Neurological exam: Alert, Normal gait, Oriented X3, Reflexes normal - Psychiatric Psychiatric exam: Normal affect, Normal mood - Skin Skin exam: Dry, Intact, Normal color, Warm Course Vital Signs 06/06/17 11:36 Temperature 97.6 F Pulse Rate 88 Respiratory 20 Rate Blood Pressure 136/77 Pulse Ox 93 L palpated neck right side muscle spasms. - Reevaluation(s) Reevaluation #1: 06/06/17 12:43 feeling better Disposition Clinical Impression: Chronic neck pain, Acute neck pain Disposition: Home, Self-Care Condition: (1) Good Instructions: Cervical Sprain (ED) Additional Instructions: take flexeril 10 mg three times a day heat to neck three times a day tylenol for pain Forms: Patient Portal Access Time of Disposition: 12:01 Quality - Quality Measures Quality Measures: N/A - Blood Pressure Screening Does Patient Have Any of the Following: No Blood Pressure Classification: Pre-Hypertensive BP Reading Systolic Measurement: 136 Diastolic Measurement: 77 Screening for High Blood Pressure: < Pre-Hypertensive BP, F/U Documented > [ G8950] Pre-Hypertensive Follow-up Interventions: Referral to alternative/primary care provider.
[2017-06-06] MEDS ORDERED: LORAZEPAM 2 MG/ML VIAL IM ONE (12:03)
== END 2017-06-06 12:49 | disposition home or self-care (01) ==
LOC: ER 11:34
DX: G89.29 Other chronic pain (principal); M54.2 Cervicalgia
CPT/HCPCS: 99283 ×2; 96372; J2060

== ENCOUNTER 2017-06-20 14:56 | Emergency (ER) | payer MEDICARE, MEDICAID ==
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
[2017-06-20] MEDS: HYDROCODONE/APAP 5/325MG TABLET PO ONE (16:24)
[2017-06-20] MEDS: METHYLPREDNISOLONE PF 125MG/VIAL IM ONE (16:25)
[2017-06-20] MEDS: CEPHALEXIN 500 MG CAPSULE PO STA (18:17)
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
== END 2017-06-20 18:26 | disposition home or self-care (01) ==
LOC: ER 14:56
DX: S16.1XXA Strain of muscle, fascia and tendon at neck level, initial encounter (principal); S02.5XXA Fracture of tooth (traumatic), initial encounter for closed fracture; W22.8XXA Striking against or struck by other objects, initial encounter; Y92.009 Unspecified place in unspecified non-institutional (private) residence as the place of occurrence of the external cause
CPT/HCPCS: 72125; 96372; 99283; 99284; J2930

== ENCOUNTER 2017-07-03 17:32 | Emergency (ER) | payer MEDICARE, MEDICAID ==
[2017-07-03] MEDS ORDERED: 0.9 % SODIUM CHLORIDE 1,000 ML BAG IV ONE (19:29)
--- NOTE | 2017-07-03 19:30 | Emergency Department Record ---
History of Present Illness - General Chief complaint: Vomiting Stated complaint: VOMITING,DIARRHEA,ABD PAIN Time Seen by Provider: 07/03/17 19:28 Source: Patient Mode of Arrival: Ambulatory - History of Present Illness Initial comments: Patient states that he has been sick for 3 days vomiting, diarrhea, and dry cough with joint and body aches all over, mostly in his lower thoracic back. He has no fevers, chills, abdominal pain or calf tenderness. he is complaining also of nausea. MD complaint: Diarrhea, Nausea, Vomiting Onset/Timin -: Days(s) Description of Vomiting: Food contents Quality: Cramping Consistency: Intermittent Associated Symptoms: Cough, Nausea/vomiting, Weakness - Related Data Previous Rx's Medication Instructions Recorded Cephalexin [Keflex] 500 mg PO TID #20 cap 06/20/17 Allergies Allergy/AdvReac Type Severity Reaction Status Date / Time venom-honey bee Allergy Severe ANAPHYLAXIS Verified 07/03/17 18:47 [bee venom (honey bee)] diazepam [From Valium] Allergy Intermediate unknown Verified 07/03/17 18:47 fentanyl Allergy Intermediate ITCHING Verified 07/03/17 18:47 ketorolac tromethamine Allergy Intermediate unknown Verified 07/03/17 18:47 morphine Allergy Intermediate unknown Verified 07/03/17 18:47 orphenadrine citrate Allergy Intermediate unknown Verified 07/03/17 18:47 [From Norflex] iodine Allergy Mild ITCHING Verified 07/03/17 18:47 Travel Screening - Travel/Exposure Within Last 30 Days Have you traveled within the last 30 days?: No - Travel/Exposure Within Last Year Have you traveled outside the [place] in the last year?: No - Additonal Travel Details Have you been exposed to anyone with a communicable illness?: No - Travel Symptoms Symptom Screening: None Review of Systems Reviewed: No additional complaints except as noted below Constitutional: Reports: As per HPI. Denies: Chills, Fever, Malaise, Night sweats, Weakness, Weight change Eyes: Reports: As per HPI. Denies: Eye discharge, Eye pain, Photophobia, Vision change ENT: Reports: As per HPI. Denies: Congestion, Dental pain, Ear pain, Epistaxis , Hearing loss, Throat pain Respiratory: Reports: As per HPI. Denies: Cough, Dyspnea, Hemoptysis, Stridor, Wheezes Cardiovascular: Reports: As per HPI. Denies: Arrhythmia, Chest pain, Dyspnea on exertion, Edema, Murmurs, Orthopnea, Palpitations, Paroxysmal nocturnal dyspnea, Rheumatic Fever, Syncope Endocrine: Reports: As per HPI. Denies: Fatigue, Heat or cold intolerance, Polydipsia, Polyuria Gastrointestinal: Reports: As per HPI. Denies: Abdominal pain, Constipation, Diarrhea, Hematemesis, Hematochezia, Melena, Nausea, Vomiting Genitourinary: Reports: As per HPI. Denies: Dysuria, Frequency, Hematuria, Incontinence, Retention, Testicular pain, Testicular mass, Urgency Musculoskeletal: Reports: As per HPI. Denies: Arthralgia, Back pain, Gout, Joint swelling, Myalgia, Neck pain Skin: Reports: As per HPI. Denies: Bruising, Change in color, Change in hair/ nails, Lesions, Pruritus, Rash Neurological: Reports: As per HPI. Denies: Abnormal gait, Confusion, Headache, Numbness, Paresthesias, Seizure, Tingling, Tremors, Vertigo, Weakness Psychiatric: Reports: As per HPI. Denies: Anxiety, Auditory hallucinations, Depression, Homicidal thoughts, Suicidal thoughts, Visual hallucinations Hematological/Lymphatic: Reports: As per HPI. Denies: Anemia, Blood Clots, Easy bleeding, Easy bruising, Swollen glands Past Medical History - SOCIAL HISTORY Smoking Status: Former smoker Alcohol Use: None Drug Use: None - RESPIRATORY Hx Respiratory Disorders: Yes Hx Bronchitis: Yes Hx COPD: Yes Hx Dyspnea: Yes Hx Pneumonia: Yes Hx Sleep Apnea: Yes Hx of CPAP: Yes - CARDIOVASCULAR Hx Cardio Disorders: Yes Hx Cardiac Cath: Yes (3 stents) Hx CHF: No Hx Edema: No Hx Heart Attack: Yes (2007,2008) Hx Hypertension: Yes Hx Irregular Heartbeat: Yes (a-fib) Comment:: CAD; high cholesterol - NEURO Hx Neuro Disorders: Yes Hx Neuropathy: Yes Comment:: neuropathy in legs and arms - GI Hx GI Disorders: Yes Hx Reflux: Yes Hx Rectal Bleeding: Yes (hemorrhoids) Hx Ulcer: Yes Hx of Polyps: Yes - Hx Genitourinary Disorders: Yes Comment:: cysts in scrotum - ENDOCRINE Hx Endocrine Disorders: Yes Hx Diabetes: Yes - MUSCULOSKELETAL Hx Musculoskeletal Disorders: Yes Hx Fibromyalgia: Yes Comment:: chronic pain, spinal stenosis - PSYCH Hx Psych Problems: Yes Hx Anxiety: Yes Hx Depression: Yes - HEMATOLOGY/ONCOLOGY Hx Hematology/Oncology Disorders: No Family Medical History Any Significant Family History?: Yes Hx Anxiety: Brother/Sister Hx Dementia: Mother Hx Depression: Brother/Sister Hx Diabetes: Father, Mother Hx Heart Disease: Father, Mother Hx HTN: Father, Mother Hx Resp Disorders: Mother Hx Seizures: Children Hx Stroke: Mother *Stroke Comment: MOm-brain aneurysm Physical Exam - General General Appearance: Alert, Oriented x3, Cooperative, No acute distress (coughs a dry harsh cough mainly when staff enter the room) - Head Head exam: Normal inspection - Eye Eye exam: Normal appearance, PERRL Pupils: Normal accommodation - ENT ENT exam: Normal exam, Mucous membranes moist, Normal external ear exam, Normal orophraynx, TM's normal bilaterally Ear exam: Normal external inspection. negative: External canal tenderness Nasal Exam: Normal inspection. negative: Discharge, Sinus tenderness Mouth exam: Normal external inspection, Tongue normal Teeth exam: Normal inspection. negative: Dental caries Throat exam: Normal inspection. negative: Tonsillar erythema, Tonsillar exudate - Neck Neck exam: Normal inspection, Full ROM. negative: Lymphadenopathy, Meningismus , Tenderness - Respiratory Respiratory exam: Normal lung sounds bilaterally, Other (pectus excavatum). negative: Accessory muscle use, Chest wall tenderness, Decreased breath sounds, Respiratory distress - Cardiovascular Cardiovascular Exam: Regular rate, Normal rhythm, Normal heart sounds - GI/Abdominal GI/Abdominal exam: Soft, Normal bowel sounds. negative: Tenderness - Rectal Rectal exam: Deferred - exam: Deferred - Extremities Extremities exam: Normal inspection, Full ROM, Normal capillary refill. negative: Tenderness - Back Back exam: Reports: Normal inspection, Full ROM. Denies: Muscle spasm, Rash noted, Tenderness - Neurological Neurological exam: Alert, Normal gait, Oriented X3, Reflexes normal - Psychiatric Psychiatric exam: Normal affect, Normal mood - Skin Skin exam: Dry, Intact, Normal color, Warm Course Vital Signs 07/03/17 18:48 Temperature 98.2 F Pulse Rate 69 Respiratory 20 Rate Blood Pressure 103/68 Pulse Ox 94 L - Reevaluation(s) Reevaluation #1: Feeling better. Sitting upright, coughing resolved, texting on phone. 07/03/17 20:29 Medical Decision Making - Management Options MDM Management: No Additional Work-up Planned - Data Complexity MDM Data: Labs Ordered and/or Reviewed (Positive for influenza A; chronic changes of HG, LFT's) - Lab Data Result diagrams: 07/03/17 19:45 07/03/17 19:45 Disposition Disposition: Discharge Clinical Impression: Influenza A Disposition: Home, Self-Care Condition: (1) Good Instructions: Acute Nausea and Vomiting (ED), Influenza (ED) Additional Instructions: Home, rest. Push fluids. Continue present medications. Follow up with PCP in office as needed. Quality - Quality Measures Quality Measures: N/A - Blood Pressure Screening Does Patient Have Any of the Following: No Blood Pressure Classification: Normal BP Reading Systolic Measurement: 103 Diastolic Measurement: 68 Screening for High Blood Pressure: < Normal BP, F/U Not Required > [G8783]
[2017-07-03] MEDS ORDERED: ONDANSETRON HCL IV 4 MG/2 ML VIAL IVP ONE (19:51)
[2017-07-03] MEDS ORDERED: IPRATROPIUM/ALBUTEROL (0.5MG/3MG) NEB INH ONE (19:52)
[2017-07-03 19:53] LABS: BASO % 0.3 % (0-6); GRAN % 53.2 % (47-80); HEMATOCRIT 38.7 % (42.0-52.0); HEMOGLOBIN 12.9 gm/dl (14.0-18.0); LYMPH % 32.3 % (16-45); MEAN CELL VOLUME 84.1 fl (81-97); MEAN CORPUSCULAR HGB CONC 33.3 g/dl (32-36); MEAN PLATELET VOLUME 9.4 fl (7.4-10.4); MONO % 13.2 % (0-9); PLATELET COUNT 113 K/uL (130-400); RED CELL DISTRIBUTION WIDTH 15.9 % (11.5-14.5); WHITE BLOOD COUNT W/O DIFF 3.1 K/uL (4.2-12.2)
[2017-07-03 20:03] LABS: INFLUENZA A POSITIVE (NEGATIVE); INFLUENZA B NEGATIVE (NEGATIVE)
[2017-07-03 20:07] LABS: ALBUMIN 3.9 gm/dL (3.5-5.0); BILIRUBIN,DIRECT 0.3 mg/dL (0-0.3); BLOOD UREA NITROGEN 13 mg/dL (9-20); CREATININE 0.9 mg/dL (0.66-1.25); EST GLOMERULAR FILTRATION RATE > 60 ml/min; GLUCOSE,RANDOM 105 mg/dL (70-110)
[2017-07-03 20:08] LABS: ALKALINE PHOSPHATASE 134 U/L (38-126); ALT/SGPT 82 U/L (21-72); AST/SGOT 193 U/L (17-59); LIPASE 203 U/L (23-300)
== END 2017-07-03 20:41 | disposition home or self-care (01) ==
LOC: ER 17:32
DX: J09.X2 Influenza due to identified novel influenza A virus with other respiratory manifestations (principal); R11.2 Nausea with vomiting, unspecified; R19.7 Diarrhea, unspecified; Z87.891 Personal history of nicotine dependence
CPT/HCPCS: 99284 ×2; 96374; 83690; 85025; 80076; 80048; 87400; 94640; J2405; J7030

== ENCOUNTER 2017-07-10 11:04 | Emergency (ER) | payer MEDICAID, MEDICARE ==
[2017-07-10] MEDS ORDERED: CLINDAMYCIN (PEDIATRIC DOSING) 600 MG in 0.9 % SODIUM CHLORIDE 100ML 100 ML IV ONE (12:43)
--- NOTE | 2017-07-10 12:45 | Emergency Department Record ---
History of Present Illness - General Chief complaint: ENT Stated complaint: LUMP IN THROAT Time Seen by Provider: 07/10/17 12:39 Source: Patient Mode of Arrival: Ambulatory Limitations: No limitations - History of Present Illness Initial comments: 56 yo male presents with right sided neck pain and swelling. The area is painful. It is painful to swallow. No fevers. He has had an infection of submandiular glands in the past. No cough. No choking. No neck redness. No chest pain today. Onset/Timin -: Hour(s) Location: Throat Severity: Moderate Severity scale (1-10): 8 Quality: Aching Consistency: Constant Improves with: None Worsens with: None Associated Symptoms: Cough - Related Data Previous Rx's Medication Instructions Recorded Clindamycin HCl [Cleocin HCl] 300 mg PO QID #28 capsule 07/10/17 Allergies Allergy/AdvReac Type Severity Reaction Status Date / Time venom-honey bee Allergy Severe ANAPHYLAXIS Verified 07/10/17 12:14 [bee venom (honey bee)] diazepam [From Valium] Allergy Intermediate unknown Verified 07/10/17 12:14 fentanyl Allergy Intermediate ITCHING Verified 07/10/17 12:14 ketorolac tromethamine Allergy Intermediate unknown Verified 07/10/17 12:14 morphine Allergy Intermediate unknown Verified 07/10/17 12:14 orphenadrine citrate Allergy Intermediate unknown Verified 07/10/17 12:14 [From Norflex] iodine Allergy Mild ITCHING Verified 07/10/17 12:14 Travel Screening - Travel/Exposure Within Last 30 Days Have you traveled within the last 30 days?: No Review of Systems Constitutional: Denies: Chills, Fever, Malaise, Weakness Eyes: Denies: Eye discharge, Eye pain, Photophobia ENT: Reports: Throat pain. Denies: Congestion Respiratory: Denies: Cough, Dyspnea, Hemoptysis, Stridor, Wheezes Cardiovascular: Denies: Chest pain, Palpitations, Syncope Endocrine: Denies: Fatigue Gastrointestinal: Denies: Abdominal pain, Diarrhea, Nausea, Vomiting Genitourinary: Denies: Dysuria, Frequency, Hematuria Musculoskeletal: Reports: Back pain, Neck pain. Denies: Arthralgia, Joint swelling, Myalgia Skin: Denies: Bruising, Change in color, Rash Neurological: Denies: Headache, Numbness, Vertigo, Weakness Psychiatric: Denies: Anxiety Hematological/Lymphatic: Denies: Blood Clots, Easy bleeding, Easy bruising, Swollen glands Past Medical History - SOCIAL HISTORY Smoking Status: Former smoker Alcohol Use: None Drug Use: None - RESPIRATORY Hx Respiratory Disorders: Yes Hx Bronchitis: Yes Hx COPD: Yes Hx Dyspnea: Yes Hx Pneumonia: Yes Hx Sleep Apnea: Yes Hx of CPAP: Yes - CARDIOVASCULAR Hx Cardio Disorders: Yes Hx Cardiac Cath: Yes (3 stents) Hx CHF: No Hx Edema: No Hx Heart Attack: Yes (2007,2008) Hx Hypertension: Yes Hx Irregular Heartbeat: Yes (a-fib) Comment:: CAD; high cholesterol - NEURO Hx Neuro Disorders: Yes Hx Neuropathy: Yes Comment:: neuropathy in legs and arms - GI Hx GI Disorders: Yes Hx Reflux: Yes Hx Rectal Bleeding: Yes (hemorrhoids) Hx Ulcer: Yes Hx of Polyps: Yes - Hx Genitourinary Disorders: Yes Comment:: cysts in scrotum - ENDOCRINE Hx Endocrine Disorders: Yes Hx Diabetes: Yes - MUSCULOSKELETAL Hx Musculoskeletal Disorders: Yes Hx Fibromyalgia: Yes Comment:: chronic pain, spinal stenosis - PSYCH Hx Psych Problems: Yes Hx Anxiety: Yes Hx Depression: Yes - HEMATOLOGY/ONCOLOGY Hx Hematology/Oncology Disorders: No Family Medical History Any Significant Family History?: Yes Hx Anxiety: Brother/Sister Hx Dementia: Mother Hx Depression: Brother/Sister Hx Diabetes: Father, Mother Hx Heart Disease: Father, Mother Hx HTN: Father, Mother Hx Resp Disorders: Mother Hx Seizures: Children Hx Stroke: Mother *Stroke Comment: MOm-brain aneurysm Physical Exam - General General Appearance: Alert, Oriented x3, Cooperative, No acute distress Limitations: No limitations - Head Head exam: Normal inspection - Eye Eye exam: Normal appearance. negative: Conjunctival injection - ENT ENT exam: Normal exam Ear exam: Normal external inspection Nasal Exam: Normal inspection Mouth exam: Normal external inspection Teeth exam: Normal inspection Throat exam: Normal inspection - Neck Neck exam: Normal inspection, Lymphadenopathy, Tenderness, Other (tender small swollen mass under right jawline, no warmth or redness) - Respiratory Respiratory exam: Normal lung sounds bilaterally. negative: Respiratory distress, Stridor - Cardiovascular Cardiovascular Exam: Regular rate, Normal rhythm, Normal heart sounds - GI/Abdominal GI/Abdominal exam: Soft. negative: Tenderness - Rectal Rectal exam: Deferred - exam: Deferred - Extremities Extremities exam: Normal inspection, Full ROM, Normal capillary refill. negative: Tenderness - Back Back exam: Reports: Normal inspection, Full ROM. Denies: Muscle spasm, Rash noted, Tenderness - Neurological Neurological exam: Alert, Normal gait, Oriented X3 - Psychiatric Psychiatric exam: Normal affect, Normal mood - Skin Skin exam: Dry, Intact, Normal color, Warm Course Vital Signs 07/10/17 12:11 Temperature 97.9 F Pulse Rate 72 Respiratory 16 Rate Blood Pressure 117/75 Pulse Ox 94 L - Reevaluation(s) Reevaluation #1: The labs are negative for acute changes The CT scan demonstrates mild SM gland swelling with mild inflammatory changes. No abscess or stone. He will be treated with antibiotics and advised to take oral sialogogues He is to call his PCP for close follow up and a recheck of the area. 07/10/17 14:52 Reevaluation #2: The patient was being discharged and states he went to the rest room and noted blood in the urine He states he was taken off his Coumadin about one month ago.. No recent urinary symptoms. 07/10/17 15:20 The penis is normal inspection. No blood or lesions. Normal in appearance. 07/10/17 15:33 Reevaluation #3: UA with a few RBC's no infection He was advised to recheck with his PCP and may new urology follow up 07/10/17 16:36 Medical Decision Making - Lab Data Result diagrams: 07/10/17 12:53 07/10/17 12:53 Disposition Disposition: Discharge Clinical Impression: Sialadenitis Disposition: Home, Self-Care Condition: (1) Good Instructions: Sialoadenitis (ED) Additional Instructions: Call your doctor for close follow up of your salivary gland infection Return or be seen if worse, fever, or any new concerns You should eat sour candies to stimulate good saliva flow You will need your Coumadin PT/INR checked in 2-3 days while on antibiotics Call your doctor to recheck the urine for blood. You may need to see a urologist if it returns Prescriptions: Clindamycin HCl [Cleocin HCl] 300 mg PO QID #28 capsule Forms: Patient Portal Access Time of Disposition: 14:55 Quality - Quality Measures Quality Measures: N/A - Blood Pressure Screening Does Patient Have Any of the Following: No Blood Pressure Classification: Normal BP Reading Systolic Measurement: 117 Diastolic Measurement: 75 Screening for High Blood Pressure: < Normal BP, F/U Not Required > [G8783] Pre-Hypertensive Follow-up Interventions: Referral to alternative/primary care provider.
[2017-07-10 13:09] LABS: BASO % 0.3 % (0-6); EOS % 1.3 % (0-6); GRAN % 46.2 % (47-80); HEMATOCRIT 38.8 % (42.0-52.0); HEMOGLOBIN 12.7 gm/dl (14.0-18.0); LYMPH % 42.5 % (16-45); MEAN CORPUSCULAR HGB CONC 32.7 g/dl (32-36); MEAN PLATELET VOLUME 9.5 fl (7.4-10.4); MONO % 9.7 % (0-9); PLATELET COUNT 126 K/uL (130-400); RED BLOOD COUNT 4.62 M/uL (4.40-5.70); RED CELL DISTRIBUTION WIDTH 15.6 % (11.5-14.5); WHITE BLOOD COUNT W/O DIFF 3.7 K/uL (4.2-12.2)
[2017-07-10 13:12] LABS: MEAN CORPUSCULAR HEMOGLOBIN 27.4 pg (27-33)
[2017-07-10] MEDS ORDERED: METHYLPREDNISOLONE PF 125MG/VIAL IVP ONE (13:21)
[2017-07-10] MEDS ORDERED: DIPHENHYDRAMINE HCL IV 50 MG/ML VIAL IVP ONE (13:21)
[2017-07-10 13:57] LABS: BLOOD UREA NITROGEN 21.7 mg/dL (12.6-42.6); CREATININE 0.8 mg/dL (0.7-1.2); EST GLOMERULAR FILTRATION RATE > 60 mL/min; GLUCOSE,RANDOM 102 mg/dL (74-109)
[2017-07-10 16:13] LABS: URINE APPEARANCE CLEAR; URINE BILIRUBIN NEGATIVE (NEGATIVE); URINE BLOOD SMALL (NEGATIVE); URINE COLOR YELLOW; URINE GLUCOSE (UA) NEGATIVE (NEGATIVE); URINE KETONE NEGATIVE (NEGATIVE); URINE LEUKOCYTE ESTERASE NEGATIVE (NEGATIVE); URINE NITRITE NEGATIVE (NEGATIVE); URINE PROTEIN NEGATIVE (NEGATIVE)
[2017-07-10 16:24] LABS: URINE EPITHELIAL CELLS NONE SEEN (FEW); URINE WBC NONE SEEN (0-2/hpf)
--- NOTE | 2017-07-11 07:29 | CT SCAN REPORT ---
EXAM: CT OF THE NECK WITHOUT AND WITH CONTRAST HISTORY: PAIN AND SWELLING IN RIGHT SUBMANDIBULAR REGION. HISTORY OF SALIVARY STONES. TECHNIQUE: Initial thin collimation helical CT examination was performed from the skull base through the hyoid without intravenous contrast. Next, routine CT examination of the neck was performed with intravenous contrast with 100 ml of Omnipaque 300 utilized. Coronal and sagittal reformatted images were generated and reviewed. Comparison: CT of the cervical spine without contrast dated 06/20/17. FINDINGS: The right submandibular gland is mildly enlarged relative to the left measuring 4.1 cm craniocaudad x 2.4 cm transverse x 3.0 cm AP. On the prior CT cervical spine examination, the right submandibular gland measures 3.6 cm craniocaudad x 2.6 cm AP x 2.1 cm transverse. The right submandibular gland enhances heterogeneously. Minimal haziness of adjacent fat is present. There is a somewhat tubular hypodense area centrally within the right submandibular gland consistent with a dilated submandibular duct or less likely small abscess. There is no evidence of calculus within the right submandibular gland nor along the expected path of its duct. The left submandibular gland and the parotid glands are normal in appearance. The thyroid gland is not enlarged and enhances uniformly. No cervical adenopathy is demonstrated. No mucosal pharyngeal space abnormality is seen though evaluation of the larynx is limited as the glottis is closed. A tiny retention cyst is present in the right maxillary sinus. The visualized paranasal sinuses and mastoid air cells are otherwise clear. The common carotid arteries, carotid bifurcations and internal carotid arteries appear widely patent. No mass or adenopathy in the visualized superior mediastinum. Mild paraseptal emphysema and scarring scattered within each lung apex. No new lytic or blastic bone lesion seen. Mild degenerative changes of the cervical spine are redemonstrated. IMPRESSION: 1. THE RIGHT SUBMANDIBULAR GLAND IS MILDLY ENLARGED, NEW SINCE THE PRIOR NONCONTRAST CT CERVICAL SPINE EXAMINATION AND ENHANCES HETEROGENEOUSLY SUSPICIOUS FOR ACUTE INFLAMMATORY CHANGE. THE DUCT WITHIN THE RIGHT SUBMANDIBULAR GLAND IS LIKELY DILATED WITH ABSCESS AT THIS LEVEL LESS LIKELY. NO DRAINABLE ABSCESS SEEN. 2. NO OTHER ACUTE ABNORMALITY IDENTIFIED. JOB NUMBER: [id number] [facility]
== END 2017-07-10 16:33 | disposition home or self-care (01) ==
LOC: ER 11:04
DX: K11.20 Sialoadenitis, unspecified (principal); R05 Cough; R31.0 Gross hematuria; M54.2 Cervicalgia; Z87.891 Personal history of nicotine dependence; I10 Essential (primary) hypertension; I25.2 Old myocardial infarction
CPT/HCPCS: 99284 ×2; 96374; 96375; 82150; 85025; 80048; 81001; 70492; Q9967; J1200; J2930

== ENCOUNTER 2017-08-27 22:19 | Emergency (ER) | payer MEDICARE ==
[2017-08-28] MEDS ORDERED: HYDROCODONE/APAP 5/325MG TABLET PO ONE (00:31)
[2017-08-28] MEDS ORDERED: AMOXICILLIN 500MG CAPSULE PO ONE (00:31)
--- NOTE | 2017-08-28 00:34 | Emergency Department Record ---
History of Present Illness - General Chief complaint: Cold Stated complaint: COUGH,SORE THROAT,HEADACHE Time Seen by Provider: 08/27/17 23:34 Source: Patient Mode of Arrival: Ambulatory Limitations: No limitations - History of Present Illness Initial comments: pt has productive brown cough for 2 days. his neck also 'popped' today and he has pain in it. MD complaint: Other Onset/Timin -: Days(s) Severity: Mild Consistency: Constant Associated Symptoms: Cough, Rhinorrhea, Sore throat - Related Data Previous Rx's Medication Instructions Recorded Amoxicillin 500 mg PO TID #30 capsule 08/28/17 Allergies Allergy/AdvReac Type Severity Reaction Status Date / Time venom-honey bee Allergy Severe ANAPHYLAXIS Verified 07/10/17 12:14 [bee venom (honey bee)] diazepam [From Valium] Allergy Intermediate unknown Verified 07/10/17 12:14 fentanyl Allergy Intermediate ITCHING Verified 07/10/17 12:14 ketorolac tromethamine Allergy Intermediate unknown Verified 07/10/17 12:14 morphine Allergy Intermediate unknown Verified 07/10/17 12:14 orphenadrine citrate Allergy Intermediate unknown Verified 07/10/17 12:14 [From Norflex] iodine Allergy Mild ITCHING Verified 07/10/17 12:14 Travel Screening - Travel/Exposure Within Last 30 Days Have you traveled within the last 30 days?: No - Travel/Exposure Within Last Year Have you traveled outside the [place] in the last year?: No - Additonal Travel Details Have you been exposed to anyone with a communicable illness?: No - Travel Symptoms Symptom Screening: None Review of Systems Reviewed: No additional complaints except as noted below Constitutional: Reports: As per HPI. Denies: Chills, Fever, Malaise, Night sweats, Weakness, Weight change Eyes: Reports: As per HPI. Denies: Eye discharge, Eye pain, Photophobia, Vision change ENT: Reports: As per HPI. Denies: Congestion, Dental pain, Ear pain, Epistaxis , Hearing loss, Throat pain Respiratory: Reports: As per HPI. Denies: Cough, Dyspnea, Hemoptysis, Stridor, Wheezes Cardiovascular: Reports: As per HPI. Denies: Arrhythmia, Chest pain, Dyspnea on exertion, Edema, Murmurs, Orthopnea, Palpitations, Paroxysmal nocturnal dyspnea, Rheumatic Fever, Syncope Endocrine: Reports: As per HPI. Denies: Fatigue, Heat or cold intolerance, Polydipsia, Polyuria Gastrointestinal: Reports: As per HPI. Denies: Abdominal pain, Constipation, Diarrhea, Hematemesis, Hematochezia, Melena, Nausea, Vomiting Genitourinary: Reports: As per HPI. Denies: Dysuria, Frequency, Hematuria, Incontinence, Retention, Testicular pain, Testicular mass, Urgency Musculoskeletal: Reports: As per HPI. Denies: Arthralgia, Back pain, Gout, Joint swelling, Myalgia, Neck pain Skin: Reports: As per HPI. Denies: Bruising, Change in color, Change in hair/ nails, Lesions, Pruritus, Rash Neurological: Reports: As per HPI. Denies: Abnormal gait, Confusion, Headache, Numbness, Paresthesias, Seizure, Tingling, Tremors, Vertigo, Weakness Psychiatric: Reports: As per HPI. Denies: Anxiety, Auditory hallucinations, Depression, Homicidal thoughts, Suicidal thoughts, Visual hallucinations Hematological/Lymphatic: Reports: As per HPI. Denies: Anemia, Blood Clots, Easy bleeding, Easy bruising, Swollen glands Past Medical History - SOCIAL HISTORY Smoking Status: Former smoker Alcohol Use: None Drug Use: None - RESPIRATORY Hx Respiratory Disorders: Yes Hx Bronchitis: Yes Hx COPD: Yes Hx Dyspnea: Yes Hx Pneumonia: Yes Hx Sleep Apnea: Yes Hx of CPAP: Yes - CARDIOVASCULAR Hx Cardio Disorders: Yes Hx Cardiac Cath: Yes (3 stents) Hx CHF: No Hx Edema: No Hx Heart Attack: Yes (2007,2008) Hx Hypertension: Yes Hx Irregular Heartbeat: Yes (a-fib) Comment:: CAD; high cholesterol - NEURO Hx Neuro Disorders: Yes Hx Neuropathy: Yes Comment:: neuropathy in legs and arms - GI Hx GI Disorders: Yes Hx Reflux: Yes Hx Rectal Bleeding: Yes (hemorrhoids) Hx Ulcer: Yes Hx of Polyps: Yes - Hx Genitourinary Disorders: Yes Comment:: cysts in scrotum - ENDOCRINE Hx Endocrine Disorders: Yes Hx Diabetes: Yes - MUSCULOSKELETAL Hx Musculoskeletal Disorders: Yes Hx Fibromyalgia: Yes Comment:: chronic pain, spinal stenosis - PSYCH Hx Psych Problems: Yes Hx Anxiety: Yes Hx Depression: Yes - HEMATOLOGY/ONCOLOGY Hx Hematology/Oncology Disorders: No Family Medical History Any Significant Family History?: Yes Hx Anxiety: Brother/Sister Hx Dementia: Mother Hx Depression: Brother/Sister Hx Diabetes: Father, Mother Hx Heart Disease: Father, Mother Hx HTN: Father, Mother Hx Resp Disorders: Mother Hx Seizures: Children Hx Stroke: Mother *Stroke Comment: MOm-brain aneurysm Physical Exam - General General Appearance: Alert, Oriented x3, Cooperative, Mild distress Limitations: No limitations - Head Head exam: Normal inspection - Eye Eye exam: Normal appearance, PERRL, EOMI Pupils: Normal accommodation - ENT ENT exam: Normal exam, Mucous membranes moist, Normal external ear exam, Normal orophraynx Ear exam: Normal external inspection. negative: External canal tenderness Nasal Exam: Normal inspection. negative: Discharge, Sinus tenderness Mouth exam: Normal external inspection, Tongue normal Teeth exam: Normal inspection. negative: Dental caries Throat exam: Normal inspection. negative: Tonsillar erythema, Tonsillar exudate - Neck Neck exam: Tenderness. negative: Full ROM - Respiratory Respiratory exam: Other (crackles r base). negative: Respiratory distress - Cardiovascular Cardiovascular Exam: Regular rate, Normal rhythm, Normal heart sounds - GI/Abdominal GI/Abdominal exam: Soft, Normal bowel sounds. negative: Tenderness - Rectal Rectal exam: Deferred - exam: Deferred - Extremities Extremities exam: Normal inspection, Full ROM, Normal capillary refill. negative: Tenderness - Back Back exam: Reports: Normal inspection, Full ROM. Denies: Muscle spasm, Rash noted, Tenderness - Neurological Neurological exam: Alert, CN II-XII intact, Normal gait, Oriented X3 - Psychiatric Psychiatric exam: Normal affect, Normal mood - Skin Skin exam: Dry, Intact, Normal color, Warm Course Vital Signs 08/27/17 08/27/17 22:53 23:55 Temperature 97.9 F 97.8 F Pulse Rate [ 63 56 L Pulse Ox Probe] Respiratory 18 18 Rate Blood Pressure 131/71 113/71 [Left Arm] Pulse Ox 95 95 Disposition Disposition: Discharge Clinical Impression: Pneumonia Qualifiers: Pneumonia type: due to unspecified organism Laterality: right Lung location: lower lobe of lung Qualified Code(s): J18.1 - Lobar pneumonia, unspecified organism Neck strain Qualifiers: Encounter type: initial encounter Qualified Code(s): S16.1XXA - Strain of muscle, fascia and tendon at neck level, initial encounter Disposition: Home, Self-Care Condition: (1) Good Instructions: Cervical Strain (ED), Pneumonia (ED) Additional Instructions: follow up with family doctor. have mri of neck. return sooner if worse Prescriptions: Amoxicillin 500 mg PO TID #30 capsule Quality - Quality Measures Quality Measures: N/A - Blood Pressure Screening Does Patient Have Any of the Following: No Blood Pressure Classification: Normal BP Reading Systolic Measurement: 113 Diastolic Measurement: 71 Screening for High Blood Pressure: < Normal BP, F/U Not Required > [G8735]
--- NOTE | 2017-08-28 10:37 | RADIOLOGY REPORT ---
EXAM: CERVICAL SPINE HISTORY: NECK PAIN. TECHNIQUE: AP, lateral, and open mouth views of the cervical spine were performed. FINDINGS: There is mild spondylotic spurring. No evidence of fracture. No significant disk space narrowing. IMPRESSION: MILD SPONDYLOTIC SPURRING. NO ACUTE PROCESS. JOB NUMBER: [id number] [facility]
--- NOTE | 2017-08-28 13:28 | RADIOLOGY REPORT ---
EXAM: CHEST, TWO VIEWS HISTORY: DIFFICULTY BREATHING. TECHNIQUE: Frontal and lateral views of the chest were performed. FINDINGS: The heart size is normal. The lung azar are clear. The osseous structures are normal. IMPRESSION: NEGATIVE CHEST EXAMINATION. JOB NUMBER: [id number] [facility]
== END 2017-08-28 00:44 | disposition home or self-care (01) ==
LOC: ER 22:19
DX: S16.1XXA Strain of muscle, fascia and tendon at neck level, initial encounter (principal); J18.1 Lobar pneumonia, unspecified organism; M54.2 Cervicalgia; E11.9 Type 2 diabetes mellitus without complications; J44.9 Chronic obstructive pulmonary disease, unspecified; I48.91 Unspecified atrial fibrillation; I10 Essential (primary) hypertension; I25.2 Old myocardial infarction; Z87.891 Personal history of nicotine dependence; X50.9XXA Other and unspecified overexertion or strenuous movements or postures, initial encounter
CPT/HCPCS: 71020; 72040; 99283; 99284

== ENCOUNTER 2017-09-21 14:24 | Emergency (ER) | payer MEDICARE ==
[2017-09-21] MEDS ORDERED: ASPIRIN 81 MG CHEWABLE TABLET PO ONE (14:30)
[2017-09-21] MEDS ORDERED: ACETAMINOPHEN 1,000 MG/100 ML BTL IVPB ONE (14:30)
--- NOTE | 2017-09-21 14:34 | Emergency Department Record ---
History of Present Illness - General Chief Complaint: Chest Pain Time Seen by Provider: 09/21/17 14:27 Source: Patient Mode of Arrival: Ambulatory Limitations: No limitations - History of Present Illness Initial Comments: 57 yo male presents with chest pain that started about 11 pm last night. The pain has been constant. He has a history of CAD with stents, Afib, and chronic chest wall pain. He denies any injury. He denies any recent sudden changes in his health. He has been evaluated at [facility] and [facility] multiple times in the last few years for chest pain. He reports his most recent stress test was negative for new changes. He reports taking 3 nitro today without any changes to his pain. He points to the lower sternum and states it is tender to touch or moving. MD Complaint: Chest pain -: Hour(s) (14) Pain Location: Substernal (distal sternal area) Quality: Aching, Sharp Consistency: Constant Improves With: Nothing Worsens With: Movement, Palpation - Related Data Previous Rx's Medication Instructions Recorded Amoxicillin 500 mg PO TID #30 capsule 08/28/17 Allergies Allergy/AdvReac Type Severity Reaction Status Date / Time venom-honey bee Allergy Severe ANAPHYLAXIS Verified 09/21/17 14:31 [bee venom (honey bee)] diazepam [From Valium] Allergy Intermediate unknown Verified 09/21/17 14:31 fentanyl Allergy Intermediate ITCHING Verified 09/21/17 14:31 ketorolac tromethamine Allergy Intermediate unknown Verified 09/21/17 14:31 morphine Allergy Intermediate unknown Verified 09/21/17 14:31 orphenadrine citrate Allergy Intermediate unknown Verified 09/21/17 14:31 [From Norflex] iodine Allergy Mild ITCHING Verified 09/21/17 14:31 Review of Systems Constitutional: Denies: Chills, Fever, Malaise, Weakness Eyes: Denies: Eye discharge, Eye pain, Photophobia, Vision change ENT: Denies: Congestion, Throat pain Respiratory: Denies: Cough, Dyspnea, Hemoptysis, Stridor, Wheezes Cardiovascular: Reports: Chest pain. Denies: Arrhythmia, Dyspnea on exertion, Edema, Murmurs, Palpitations, Syncope Endocrine: Denies: Fatigue Gastrointestinal: Denies: Abdominal pain, Diarrhea, Nausea, Vomiting Genitourinary: Denies: Dysuria, Frequency, Hematuria Musculoskeletal: Reports: Neck pain. Denies: Arthralgia, Joint swelling, Myalgia Skin: Denies: Bruising, Change in color, Rash Neurological: Denies: Headache, Numbness, Weakness Psychiatric: Denies: Anxiety Hematological/Lymphatic: Denies: Blood Clots, Easy bleeding, Easy bruising, Swollen glands Past Medical History - SOCIAL HISTORY Smoking Status: Former smoker Drug Use: None - RESPIRATORY Hx Respiratory Disorders: Yes Hx Bronchitis: Yes Hx COPD: Yes Hx Dyspnea: Yes Hx Pneumonia: Yes Hx Sleep Apnea: Yes Hx of CPAP: Yes - CARDIOVASCULAR Hx Cardio Disorders: Yes Hx Cardiac Cath: Yes (3 stents) Hx CHF: No Hx Edema: No Hx Heart Attack: Yes (2007,2008) Hx Hypertension: Yes Hx Irregular Heartbeat: Yes (a-fib) Comment:: CAD; high cholesterol - NEURO Hx Neuro Disorders: Yes Hx Neuropathy: Yes Comment:: neuropathy in legs and arms - GI Hx GI Disorders: Yes Hx Reflux: Yes Hx Rectal Bleeding: Yes (hemorrhoids) Hx Ulcer: Yes Hx of Polyps: Yes - Hx Genitourinary Disorders: Yes Comment:: cysts in scrotum - ENDOCRINE Hx Endocrine Disorders: Yes Hx Diabetes: Yes - MUSCULOSKELETAL Hx Musculoskeletal Disorders: Yes Hx Fibromyalgia: Yes Comment:: chronic pain, spinal stenosis - PSYCH Hx Psych Problems: Yes Hx Anxiety: Yes Hx Depression: Yes - HEMATOLOGY/ONCOLOGY Hx Hematology/Oncology Disorders: No Family Medical History Hx Anxiety: Brother/Sister Hx Dementia: Mother Hx Depression: Brother/Sister Hx Diabetes: Father, Mother Hx Heart Disease: Father, Mother Hx HTN: Father, Mother Hx Resp Disorders: Mother Hx Seizures: Children Hx Stroke: Mother *Stroke Comment: MOm-brain aneurysm Physical Exam - General General Appearance: Alert, Oriented x3, Cooperative, No acute distress - Head Head exam: Atraumatic, Normal inspection - Eye Eye exam: Normal appearance, PERRL. negative: Conjunctival injection, Scleral icterus - ENT ENT exam: Normal exam, Mucous membranes moist Ear exam: Normal external inspection Nasal Exam: Normal inspection Mouth exam: Normal external inspection - Neck Neck exam: Normal inspection, Full ROM. negative: Tenderness - Respiratory Respiratory exam: Normal lung sounds bilaterally, Chest wall tenderness (The mid to distal sternum is tender to palpation, this is the area where he identifies his chest pain). negative: Accessory muscle use, Decreased breath sounds, Prolonged expiratory, Respiratory distress, Rhonchi, Stridor, Wheezes - Cardiovascular Cardiovascular Exam: Regular rate, Normal rhythm, Normal heart sounds. negative : Diastolic murmur, Systolic murmur Peripheral Pulses: 2+: Radial (R), Radial (L) - GI/Abdominal GI/Abdominal exam: Soft, Normal bowel sounds. negative: Distended, Guarding, Rebound, Rigid, Tenderness - Rectal Rectal exam: Deferred - exam: Deferred - Extremities Extremities exam: Normal inspection, Full ROM, Normal capillary refill. negative: Pedal edema, Tenderness - Back Back exam: Reports: Normal inspection, Full ROM. Denies: CVA tenderness (R), CVA tenderness (L), Muscle spasm, Paraspinal tenderness, Rash noted, Tenderness , Vertebral tenderness - Neurological Neurological exam: Alert, Normal gait, Oriented X3. negative: Altered - Psychiatric Psychiatric exam: Normal affect, Normal mood. negative: Agitated, Anxious - Skin Skin exam: Dry, Intact, Normal color, Warm Course - Reevaluation(s) Reevaluation #1: 09/21/17 14:34 EKG NSR rate is 62, intervals Qtc 488, QRS 160 with RBBB, axis N, ST no changes from prior EKG's on 03/04/17, 11/26/16 The EKG is unchanged from prior The examination demonstrates very reproducible sternal tenderness in the location of his pain. The sternal pain has been a recurrent pain for him in the past. 09/21/17 14:52 The CBC was reviewed Chronic stable WBC and Hgb mildly low. 09/21/17 15:18 No acute changes on the CMP The Troponin is normal 09/21/17 15:43 I discussed repeating the cardiac enzymes with the patient. He has very atypical chest tenderness that has been on going constant for 15 hours with no changes to his EKG or enzymes. The pain is reproducible. 09/21/17 18:37 The patient has been sleeping comfortably On recheck the chest is still reproducibly tender. 09/21/17 18:56 The repeat tropinn was negative for acute change DC home with chest wall pain. Medical Decision Making - Lab Data Result diagrams: 09/21/17 14:41 09/21/17 14:41 Disposition Disposition: Discharge Clinical Impression: Chest wall pain Disposition: Home, Self-Care Condition: (1) Good Instructions: Chest Pain (ED), Chest Wall Pain (ED) Additional Instructions: Call your doctor for close follow up this week Return to the ED if worse, cough, short of breath or any new concerns. Forms: Patient Portal Access Time of Disposition: 18:57 Quality - Quality Measures Quality Measures: N/A - Blood Pressure Screening Does Patient Have Any of the Following: No Blood Pressure Classification: Normal BP Reading Systolic Measurement: 119 Diastolic Measurement: 75 Screening for High Blood Pressure: < Normal BP, F/U Not Required > [G8783] Pre-Hypertensive Follow-up Interventions: Referral to alternative/primary care provider.
[2017-09-21 14:49] LABS: BASO % 0.3 % (0-6); EOS % 3.4 % (0-6); GRAN % 38.4 % (47-80); HEMATOCRIT 39.6 % (42.0-52.0); HEMOGLOBIN 12.7 gm/dl (14.0-18.0); LYMPH % 48.5 % (16-45); MEAN CELL VOLUME 84.8 fl (81-97); MEAN CORPUSCULAR HEMOGLOBIN 27.1 pg (27-33); MEAN CORPUSCULAR HGB CONC 32.1 g/dl (32-36); MEAN PLATELET VOLUME 9.6 fl (7.4-10.4); MONO % 9.4 % (0-9); PLATELET COUNT 137 K/uL (130-400); RED BLOOD COUNT 4.67 M/uL (4.40-5.70); RED CELL DISTRIBUTION WIDTH 15.7 % (11.5-14.5)
[2017-09-21 15:00] LABS: BLOOD UREA NITROGEN 10 mg/dL (6-20); CREATININE 0.8 mg/dL (0.7-1.2); EST GLOMERULAR FILTRATION RATE > 60 mL/min
[2017-09-21 15:03] LABS: GLUCOSE,RANDOM 170 mg/dL (74-109); INR 1.02
[2017-09-21 15:05] LABS: ALT/SGPT 18 U/L (<41); AST/SGOT 32 U/L (10.0-50.0)
[2017-09-21 15:06] LABS: ALB/GLOB RATIO 1.1 (1.1-1.8); ALBUMIN 3.7 g/dL (4.0-5.0); ALKALINE PHOSPHATASE 125 U/L (40-129)
== END 2017-09-21 19:06 | disposition home or self-care (01) ==
LOC: ER 14:24
DX: R07.89 Other chest pain (principal); I48.91 Unspecified atrial fibrillation; I10 Essential (primary) hypertension; I25.2 Old myocardial infarction; E11.9 Type 2 diabetes mellitus without complications; Z79.84 Long term (current) use of oral hypoglycemic drugs; Z87.891 Personal history of nicotine dependence
CPT/HCPCS: 80053; 84484; 85025; 85610; 85730; 93005; 93010; 96365; 99284

== ENCOUNTER 2017-11-13 15:45 | Emergency (ER) | payer MEDICARE ==
--- NOTE | 2017-11-13 15:57 | Emergency Department Record ---
History of Present Illness <MARILU PALACIO - Last Filed: 11/13/17 19:45> - General Source: Patient Mode of Arrival: Ambulatory Limitations: No limitations - History of Present Illness Initial Comments: The patient is here due to a 14 hour episode of CP that was present at 2 am today. The pain is a sharp stabbing pain that is retrosternal and nonradiating. He does feel mildly SOB with it. The patient has a long hx of CAD and Stents and also Afib along with multiple chronic pain syndromes including chronic chest wall pain. He has had similar pain multiple times in the past and also has had multiple evaluations at [facility], [facility], and [facility]. His last eval here was in Aug and his workup was normal and he was observed in the ER and discharged to home. He did take a full dose ASA earlier today and did take 2 SL NTG with no relief. MD Complaint: Chest pain Onset/Timin -: Hour(s) Onset: Awoke with symptoms Pain Location: Substernal Pain Radiation: None Severity scale (1-10): 8 Quality: Heaviness, Other Consistency: Constant Improves With: Nothing Worsens With: Nothing Anginal Symptoms: Nausea Treatments Prior to Arrival: None <Luis Armando Dover - Last Filed: 11/14/17 07:17> - General Chief Complaint: Chest Pain Stated Complaint: CHEST PAIN Time Seen by Provider: 11/13/17 15:50 - Related Data Home Medications Medication Instructions Recorded Confirmed Last Taken Sertraline HCl [Zoloft] 50 mg PO DAILY 11/13/17 11/13/17 Unknown Previous Rx's Medication Instructions Recorded Doxycycline Monohydrate [Mondoxyne 100 mg PO BID #14 capsule 11/13/17 ] Allergies Allergy/AdvReac Type Severity Reaction Status Date / Time venom-honey bee Allergy Severe ANAPHYLAXIS Verified 09/21/17 14:31 [bee venom (honey bee)] diazepam [From Valium] Allergy Intermediate unknown Verified 09/21/17 14:31 fentanyl Allergy Intermediate ITCHING Verified 09/21/17 14:31 ketorolac tromethamine Allergy Intermediate unknown Verified 09/21/17 14:31 morphine Allergy Intermediate unknown Verified 09/21/17 14:31 orphenadrine citrate Allergy Intermediate unknown Verified 09/21/17 14:31 [From Norflex] iodine Allergy Mild ITCHING Verified 09/21/17 14:31 Travel Screening - Travel/Exposure Within Last 30 Days Have you traveled within the last 30 days?: No <JazzmineLuis Armando Baron - Last Filed: 11/14/17 07:17> Review of Systems Constitutional: Denies: Chills, Fever Eyes: Denies: Eye discharge ENT: Denies: Congestion Respiratory: Reports: Cough (mild but neg for sputum.). Denies: Dyspnea <Luis Armando Dover [place] - Last Filed: 11/14/17 07:17> Past Medical History - SOCIAL HISTORY Smoking Status: Former smoker - RESPIRATORY Hx Respiratory Disorders: Yes Hx Bronchitis: Yes Hx COPD: Yes Hx Dyspnea: Yes Hx Pneumonia: Yes Hx Sleep Apnea: Yes Hx of CPAP: Yes - CARDIOVASCULAR Hx Cardio Disorders: Yes Hx Cardiac Cath: Yes (3 stents) Hx CHF: No Hx Edema: No Hx Heart Attack: Yes (2007,2008) Hx Hypertension: Yes Hx Irregular Heartbeat: Yes (a-fib) Comment:: CAD; high cholesterol - NEURO Hx Neuro Disorders: Yes Hx Neuropathy: Yes Comment:: neuropathy in legs and arms - GI Hx GI Disorders: Yes Hx Reflux: Yes Hx Rectal Bleeding: Yes (hemorrhoids) Hx Ulcer: Yes Hx of Polyps: Yes - Hx Genitourinary Disorders: Yes Comment:: cysts in scrotum - ENDOCRINE Hx Endocrine Disorders: Yes Hx Diabetes: Yes - MUSCULOSKELETAL Hx Musculoskeletal Disorders: Yes Hx Fibromyalgia: Yes Comment:: chronic pain, spinal stenosis - PSYCH Hx Psych Problems: Yes Hx Anxiety: Yes Hx Depression: Yes - HEMATOLOGY/ONCOLOGY Hx Hematology/Oncology Disorders: No <Luis Armando Dover [place] - Last Filed: 11/14/17 07:17> Family Medical History Any Significant Family History?: Yes Hx Anxiety: Brother/Sister Hx Dementia: Mother Hx Depression: Brother/Sister Hx Diabetes: Father, Mother Hx Heart Disease: Father, Mother Hx HTN: Father, Mother Hx Resp Disorders: Mother Hx Seizures: Children Hx Stroke: Mother *Stroke Comment: MOm-brain aneurysm <Luis Armando Dover - Last Filed: 11/14/17 07:17> Physical Exam - General General Appearance: Alert, Oriented x3, Cooperative, No acute distress - Head Head exam: Atraumatic, Normocephalic, Normal inspection - Eye Eye exam: Normal appearance, PERRL - ENT Throat exam: Normal inspection. negative: Tonsillar erythema, Tonsillar exudate - Neck Neck exam: Normal inspection, Full ROM. negative: Tenderness - Respiratory Respiratory exam: Normal lung sounds bilaterally, Chest wall tenderness (The CP is 100% reproducible to palpation over the inferior sternum.). negative: Respiratory distress - Cardiovascular Cardiovascular Exam: Regular rate, Normal rhythm, Normal heart sounds - GI/Abdominal GI/Abdominal exam: Soft, Normal bowel sounds. negative: Tenderness - Extremities Extremities exam: Normal inspection, Full ROM, Normal capillary refill. negative: Tenderness <Luis Armando Dover - Last Filed: 11/14/17 07:17> Course Vital Signs 11/13/17 11/13/17 15:53 17:43 Temperature 97.5 F L Pulse Rate 67 Pulse Rate [ 55 L [employer] ] Respiratory 20 14 Rate Blood Pressure 129/80 Blood Pressure 117/73 [Left Arm] Pulse Ox 97 94 L - Reevaluation(s) Reevaluation #4: 11/13/17 19:45 The repeat Troponin was negative DC home with Dr Dover's instructions <MARILU PALACIO - Last Filed: 11/13/17 19:45> Vital Signs 11/13/17 15:53 Temperature 97.5 F L Pulse Rate 67 Respiratory 20 Rate Blood Pressure 129/80 Pulse Ox 97 - Reevaluation(s) Reevaluation #1: The patient is resting comfortably. He denies any new symptoms or complaints. On exam his pain is again 100% reproducible to palpation which has been very consistent for his sternal chest wall pain. 11/13/17 17:00 Reevaluation #2: There have been no changes to his cardiac status. The enzymes did return normal so based on that I strongly doubt any cardiac etiology since he had the pain for 14 hours prior to presenting here. 11/13/17 17:41 Reevaluation #3: The patient is resting comfortably. He denies any new pain or any SOB or DEJON. On exam his chest wall pain is still 100% reproducible. I did explain to him that his chest CT does not demonstrate any acute abnormality. We will order a 2nd set of cardiac enzymes at 19:00 and will discharge if neg. Since the patient has had a cough and the CT does show possible pneumonia, we will place the patient on an oral Abx at discharge. 11/13/17 18:35 11/13/17 18:44 <Luis Armando Dover - Last Filed: 11/14/17 07:17> Medical Decision Making - Lab Data Result diagrams: 11/13/17 16:05 11/13/17 16:05 Lab Results 11/13/17 11/13/17 11/13/17 Range/Units 16:05 16:05 16:05 WBC 4.6 (4.2-12.2) K/uL RBC 5.10 (4.40-5.70) M/uL Hgb 13.9 L (14.0-18.0) gm/dl Hct 42.3 (42.0-52.0) % MCV 82.9 (81-97) fl MCH 27.2 (27-33) pg MCHC 32.9 (32-36) g/dl RDW 15.7 H (11.5-14.5) % Plt Count 162 (130-400) K/uL MPV 9.4 (7.4-10.4) fl Neutrophils % 42.0 L (47-80) % Eosinophils % Not Reportable Basophils % Not Reportable Lymphocytes 52.0 H (16-45) % Monocytes 6.0 (0-9) % Platelet Estimate Normal (NORMAL) Anisocytosis 1+ PT 11.2 (9.5-12.1) SECONDS INR 1.04 APTT 29.90 (24.5-39.1) SECONDS D-Dimer (0-0.59) mg/L FEU Sodium 135 L (136-145) mmol/L Potassium 4.2 (3.4-4.5) mmol/L Chloride 98 (98-107) mmol/L Carbon Dioxide 23.0 (22-29) mmol/L Anion Gap 14.0 (7-16) BUN 12 (6-20) mg/dL Creatinine 0.9 (0.7-1.2) mg/dL Estimated GFR > 60 mL/min Random Glucose 102 (74-109) mg/dL Calcium 9.0 (8.6-10.0) mg/dL Creatine Kinase 104 (39-308) U/L CK-MB (CK-2) 3.9 (<6.73) ng/mL Troponin T < 0.010 (0-0.010) ng/mL 11/13/17 11/13/17 Range/Units 16:05 19:05 WBC (4.2-12.2) K/uL RBC (4.40-5.70) M/uL Hgb (14.0-18.0) gm/dl Hct (42.0-52.0) % MCV (81-97) fl MCH (27-33) pg MCHC (32-36) g/dl RDW (11.5-14.5) % Plt Count (130-400) K/uL MPV (7.4-10.4) fl Neutrophils % (47-80) % Eosinophils % Basophils % Lymphocytes (16-45) % Monocytes (0-9) % Platelet Estimate (NORMAL) Anisocytosis PT (9.5-12.1) SECONDS INR APTT (24.5-39.1) SECONDS D-Dimer 1.17 H (0-0.59) mg/L FEU Sodium (136-145) mmol/L Potassium (3.4-4.5) mmol/L Chloride (98-107) mmol/L Carbon Dioxide (22-29) mmol/L Anion Gap (7-16) BUN (6-20) mg/dL Creatinine (0.7-1.2) mg/dL Estimated GFR mL/min Random Glucose (74-109) mg/dL Calcium (8.6-10.0) mg/dL Creatine Kinase (39-308) U/L CK-MB (CK-2) 3.5 (<6.73) ng/mL Troponin T < 0.010 (0-0.010) ng/mL <MARILU PALACIO - Last Filed: 11/13/17 19:45> - Data Complexity MDM Data: Labs Ordered and/or Reviewed, X-Ray Ordered and/or Reviewed, EKG Ordered and/or Reviewed - Lab Data Result diagrams: 11/13/17 16:05 11/13/17 16:05 - EKG Data -: EKG Interpreted by Md EKG: No Acute Changes, Unchanged From Previous - Radiology Data Radiology results: Report reviewed (Chest CT: Neg PE or dissection. Possible early infiltrate.) <Luis Armando Dover - Last Filed: 11/14/17 07:17> Disposition <MARILU PALACIO - Last Filed: 11/13/17 19:45> Disposition: Discharge Time of Disposition: 18:47 <Luis Armando Dover - Last Filed: 11/14/17 07:17> Clinical Impression: Chest wall pain Disposition: Home, Self-Care Condition: (2) Stable Instructions: Chest Wall Pain (ED) Additional Instructions: Please continue your regular home medicines and use Tylenol for pain. Please take the Doxycycline as directed. Please see your PCP early next week for recheck and return to the ER for any worsening problems. Prescriptions: Doxycycline Monohydrate [Mondoxyne Nl] 100 mg PO BID #14 capsule Forms: Patient Portal Access Quality - Blood Pressure Screening Does Patient Have Any of the Following: No Blood Pressure Classification: Pre-Hypertensive BP Reading Systolic Measurement: 129 Diastolic Measurement: 80 Screening for High Blood Pressure: < Pre-Hypertensive BP, F/U Documented > [ G8950] <MARILU PALACIO - Last Filed: 11/13/17 19:45> - Quality Measures Quality Measures: N/A - Blood Pressure Screening View Details: Yes Does Patient Have Any of the Following: No Blood Pressure Classification: Pre-Hypertensive BP Reading Systolic Measurement: 129 Diastolic Measurement: 80 Screening for High Blood Pressure: < Pre-Hypertensive BP, F/U Documented > [ G8950] Pre-Hypertensive Follow-up Interventions: Referral to alternative/primary care provider. <Luis Armando Dover - Last Filed: 11/14/17 07:17>
[2017-11-13] MEDS ORDERED: ACETAMINOPHEN 325 MG TAB PO ONE (16:00)
[2017-11-13 16:24] LABS: HEMATOCRIT 42.3 % (42.0-52.0); HEMOGLOBIN 13.9 gm/dl (14.0-18.0); MEAN CELL VOLUME 82.9 fl (81-97); MEAN CORPUSCULAR HGB CONC 32.9 g/dl (32-36); MEAN PLATELET VOLUME 9.4 fl (7.4-10.4); PLATELET COUNT 162 K/uL (130-400); RED CELL DISTRIBUTION WIDTH 15.7 % (11.5-14.5); WHITE BLOOD COUNT W/O DIFF 4.6 K/uL (4.2-12.2)
[2017-11-13 16:29] LABS: MEAN CORPUSCULAR HEMOGLOBIN 27.2 pg (27-33)
[2017-11-13 16:30] LABS: INR 1.04; PARTIAL THROMBOPLASTIN TIME 29.9 SECONDS (24.5-39.1); PROTHROMBIN TIME (PATIENT) 11.2 SECONDS (9.5-12.1)
[2017-11-13 16:31] LABS: BLOOD UREA NITROGEN 12 mg/dL (6-20); CREATININE 0.9 mg/dL (0.7-1.2); EST GLOMERULAR FILTRATION RATE > 60 mL/min
[2017-11-13 16:34] LABS: GLUCOSE,RANDOM 102 mg/dL (74-109)
[2017-11-13 16:37] LABS: CREATINE PHOSPHOKINASE 104 U/L (39-308)
[2017-11-13 16:39] LABS: CKMB 3.9 ng/mL (<6.73)
[2017-11-13 16:44] LABS: ANISOCYTOSIS 1+; PLATELET ESTIMATE NORMAL (NORMAL)
[2017-11-13] MEDS ORDERED: DIPHENHYDRAMINE HCL IV 50 MG/ML VIAL IVP ONE (17:44)
[2017-11-13] MEDS ORDERED: METHYLPREDNISOLONE PF 125MG/VIAL IVP ONE (17:44)
[2017-11-13 19:32] LABS: CKMB 3.5 ng/mL (<6.73)
--- NOTE | 2017-11-14 21:03 | CT ANGIOGRAM REPORT ---
EXAM: CT ANGIOGRAM CHEST CTA w contrast HISTORY: WORSENING CHEST PAIN SINCE 2:00 A.M. TODAY. ELEVATED D-DIMER. TECHNIQUE: Routine CTA examination of the chest is performed utilizing a pulmonary embolus protocol with 100 mL of Omnipaque-350 utilized. Coronal and sagittal maximum-intensity projection reformatted images are generated and reviewed. COMPARISON: Single-view chest dated 08/28/2008. Two-view chest radiographic examination dated 08/27/2017. FINDINGS: Opacification of the pulmonary arteries is satisfactory for interpretation. Respiratory motion artifact involving the lower lungs, right worse than left, however, slightly limits evaluation of the segmental arteries. No luminal filling defect is noted in the outflow tract, main arteries, lobar arteries, nor proximal segmental arteries that are unaffected by respiratory motion. The main pulmonary arteries appear mildly prominent in size, possibly relating to pulmonary arterial hypertension. The thoracic aorta is mildly atherosclerotic throughout. No focal aneurysmal dilatation nor dissection is seen. There is atherosclerotic calcification of the coronary arteries, mild to moderate in degree. No mediastinal mass nor adenopathy. Lymphoid tissue in the right hilum is near the upper limits of normal. The central airways are grossly clear, though there does appear to be minor bronchial wall thickening in the lower lobes. Bilateral paraseptal emphysema is present. There are mixed opacities in the posterior right lung base consistent with infiltrate or atelectasis. No pleural or pericardial effusion. The right hemidiaphragm is mildly elevated. The adrenal glands are not enlarged. No lytic or blastic bone lesion. IMPRESSION: 1. NO CTA EVIDENCE OF ACUTE PULMONARY EMBOLIC DISEASE, THOUGH EVALUATION OF THE SEGMENTAL ARTERIES IN THE LOWER LUNGS IS MILDLY LIMITED BY MOTION ARTIFACT. 2. MILDLY PROMINENT MAIN PULMONARY ARTERIES SUGGESTING PULMONARY ARTERIAL HYPERTENSION. 3. BILATERAL EMPHYSEMA. 4. NO EVIDENCE OF THORACIC AORTIC DISSECTION. 5. MIXED AIRSPACE OPACITIES IN THE POSTERIOR ASPECT OF THE RIGHT LOWER LOBE CONSISTENT WITH PNEUMONIA OR ATELECTASIS. MILD BRONCHIAL WALL THICKENING IN THE LOWER LUNGS SUGGESTING BRONCHITIS. JOB NUMBER: [id number] [facility]
== END 2017-11-13 20:22 | disposition home or self-care (01) ==
LOC: ER 15:45
DX: R07.89 Other chest pain (principal); R06.02 Shortness of breath; R11.0 Nausea; I48.91 Unspecified atrial fibrillation; E11.9 Type 2 diabetes mellitus without complications; I10 Essential (primary) hypertension; I25.2 Old myocardial infarction; Z79.84 Long term (current) use of oral hypoglycemic drugs; Z87.891 Personal history of nicotine dependence
CPT/HCPCS: 99284 ×2; 96374; 96375; 82550; 85730; 85610; 82553; 80048; 84484; 85379; 85027; 71275; 93005; 93010; Q9967; J1200; J2930

== ENCOUNTER 2017-12-23 19:21 | Emergency (ER) | payer MEDICARE ==
[2017-12-23] MEDS ORDERED: KETOROLAC 30 MG/ML VIAL IM ONE (19:44)
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
== END 2017-12-23 21:15 | disposition home or self-care (01) ==
LOC: ER 19:21
DX: S00.83XA Contusion of other part of head, initial encounter (principal); W22.8XXA Striking against or struck by other objects, initial encounter; I10 Essential (primary) hypertension; Z87.891 Personal history of nicotine dependence
CPT/HCPCS: 70110; 99283

== ENCOUNTER 2018-02-08 14:02 | Emergency (ER) | payer MEDICARE ==
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
[2018-02-08] MEDS ORDERED: KETOROLAC 30 MG/ML VIAL IM ONE (14:29)
[2018-02-08] MEDS ORDERED: HYDROCODONE/APAP 5/325MG TABLET PO ONE (15:35)
--- NOTE | 2018-02-09 22:05 | RADIOLOGY REPORT ---
EXAM: HIP,UNILAT, 2-3 VIEW RIGHT HISTORY: RIGHT HIP PAIN POST FALL. TECHNIQUE: An AP view of the pelvis is obtained as well as AP and frog-leg lateral views of the right hip. COMPARISON: CT abdomen and pelvis without contrast dated 08/20/2008. ENCOUNTER: Initial. FINDINGS: There is normal bone mineralization. No acute fracture, dislocation, or destructive bone lesion is seen. There are early degenerative changes of each hip. The sacroiliac joints are grossly maintained. A single surgical clip is noted in the central pelvis. IMPRESSION: NO ACUTE FRACTURE NOR DISLOCATION. MILD DEGENERATIVE CHANGES OF EACH HIP. [facility]BER: [id number] [facility]
== END 2018-02-08 15:41 | disposition home or self-care (01) ==
LOC: ER 14:02
DX: S70.01XA Contusion of right hip, initial encounter (principal); M79.651 Pain in right thigh; I10 Essential (primary) hypertension; J44.9 Chronic obstructive pulmonary disease, unspecified; I48.91 Unspecified atrial fibrillation; I25.2 Old myocardial infarction; Z79.84 Long term (current) use of oral hypoglycemic drugs; Z87.891 Personal history of nicotine dependence; W11.XXXA Fall on and from ladder, initial encounter; Y92.008 Other place in unspecified non-institutional (private) residence as the place of occurrence of the external cause
CPT/HCPCS: 99283

== ENCOUNTER 2018-06-22 17:56 | Emergency (ER) | payer MEDICARE, MEDICAID ==
--- NOTE | 2018-06-22 18:17 | Emergency Department Record ---
History of Present Illness - General Chief Complaint: Chest Pain Stated Complaint: CHEST PAIN Time Seen by Provider: 06/22/18 18:15 Source: Patient Mode of Arrival: Ambulatory Limitations: No limitations - History of Present Illness Initial Comments: 57 yo male presents to for evaluation of chest pain and "not feeling well" this afternoon that began 4 hours ago. Patient denies fevers, chills, or cough symptoms, but does report that he has been out of several of his home medications. Patient reports that he has been taking his Eliquis as prescribed however and denies pain with deep inspiration. Patient does report a history of MA s/p stent placement as well as atrial fibrillation, denies palpitations. Patient also reports recent negative stress testing with Dr. Zhang ([facility]). MD Complaint: Chest pain Onset/Timin -: Hour(s) Onset: During rest Pain Location: Substernal Severity: Moderate Severity scale (1-10): 8 Quality: Aching, Heaviness, Tightness Consistency: Constant Improves With: Nothing Worsens With: Nothing Anginal Symptoms: Nausea - Related Data Home Medications Medication Instructions Recorded Confirmed Last Taken Apixaban [Eliquis] 5 mg PO BID 06/22/18 06/22/18 06/22/18 Aspirin 81 mg PO DAILY 06/22/18 06/22/18 06/22/18 Allergies Allergy/AdvReac Type Severity Reaction Status Date / Time venom-honey bee Allergy Severe ANAPHYLAXIS Verified 06/22/18 18:08 [bee venom (honey bee)] diazepam [From Valium] Allergy Intermediate unknown Verified 06/22/18 18:08 fentanyl Allergy Intermediate ITCHING Verified 06/22/18 18:08 ketorolac tromethamine Allergy Intermediate unknown Verified 06/22/18 18:08 morphine Allergy Intermediate unknown Verified 06/22/18 18:08 orphenadrine citrate Allergy Intermediate unknown Verified 06/22/18 18:08 [From Norflex] iodine Allergy Mild ITCHING Verified 06/22/18 18:08 Travel Screening - Travel/Exposure Within Last 30 Days Have you traveled within the last 30 days?: No - Travel/Exposure Within Last Year Have you traveled outside the [place] in the last year?: No - Additonal Travel Details Have you been exposed to anyone with a communicable illness?: No - Travel Symptoms Symptom Screening: None Review of Systems Constitutional: Denies: Chills, Fever, Malaise, Night sweats Eyes: Denies: Eye discharge, Eye pain ENT: Denies: Congestion, Ear pain, Epistaxis Respiratory: Denies: Cough, Dyspnea Cardiovascular: Reports: Chest pain. Denies: Dyspnea on exertion Endocrine: Denies: Fatigue, Heat or cold intolerance Gastrointestinal: Reports: Nausea. Denies: Abdominal pain Genitourinary: Denies: Testicular pain, Testicular mass Musculoskeletal: Denies: Arthralgia, Back pain Skin: Denies: Bruising, Change in color Neurological: Denies: Abnormal gait, Confusion, Headache Psychiatric: Denies: Anxiety Hematological/Lymphatic: Denies: Anemia, Blood Clots Past Medical History - SOCIAL HISTORY Smoking Status: Former smoker Alcohol Use: None Drug Use: None - RESPIRATORY Hx Respiratory Disorders: Yes Hx Bronchitis: Yes Hx COPD: Yes Hx Dyspnea: Yes Hx Pneumonia: Yes Hx Sleep Apnea: Yes Hx of CPAP: Yes - CARDIOVASCULAR Hx Cardio Disorders: Yes Hx Cardiac Cath: Yes (3 stents) Hx CHF: No Hx Edema: No Hx Heart Attack: Yes (2007,2008) Hx Hypertension: Yes Hx Irregular Heartbeat: Yes (a-fib) Comment:: CAD; high cholesterol - NEURO Hx Neuro Disorders: Yes Hx Neuropathy: Yes Comment:: neuropathy in legs and arms - GI Hx GI Disorders: Yes Hx Reflux: Yes Hx Rectal Bleeding: Yes (hemorrhoids) Hx Ulcer: Yes Hx of Polyps: Yes - Hx Genitourinary Disorders: Yes Comment:: cysts in scrotum - ENDOCRINE Hx Endocrine Disorders: Yes Hx Diabetes: Yes - MUSCULOSKELETAL Hx Musculoskeletal Disorders: Yes Hx Fibromyalgia: Yes Comment:: chronic pain, spinal stenosis - PSYCH Hx Psych Problems: Yes Hx Anxiety: Yes Hx Depression: Yes - HEMATOLOGY/ONCOLOGY Hx Hematology/Oncology Disorders: No Family Medical History Any Significant Family History?: Yes Hx Anxiety: Brother/Sister Hx Dementia: Mother Hx Depression: Brother/Sister Hx Diabetes: Father, Mother Hx Heart Disease: Father, Mother Hx HTN: Father, Mother Hx Resp Disorders: Mother Hx Seizures: Children Hx Stroke: Mother *Stroke Comment: MOm-brain aneurysm Physical Exam - General General Appearance: Alert, Oriented x3, Cooperative, Mild distress Limitations: No limitations - Head Head exam: Atraumatic, Normocephalic, Normal inspection Head exam detail: negative: Abrasion, Contusion, Kidd's sign, General tenderness, Hematoma, Laceration - Eye Eye exam: Normal appearance. negative: Conjunctival injection, Periorbital swelling, Periorbital tenderness, Scleral icterus - ENT Ear exam: negative: Auricular hematoma, Auricular trauma Nasal Exam: negative: Active bleeding, Discharge, Dried blood, Foreign body Mouth exam: negative: Drooling, Laceration, Muffled voice, Tongue elevation - Neck Neck exam: Normal inspection. negative: Meningismus, Tenderness - Respiratory Respiratory exam: Normal lung sounds bilaterally. negative: Respiratory distress, Rhonchi, Stridor, Wheezes - Cardiovascular Cardiovascular Exam: Regular rate, Normal rhythm, Normal heart sounds - GI/Abdominal GI/Abdominal exam: Soft. negative: Rebound, Rigid, Tenderness - Rectal Rectal exam: Deferred - exam: Deferred - Extremities Extremities exam: Normal inspection. negative: Calf tenderness, Pedal edema, Tenderness - Back Back exam: Denies: CVA tenderness (R), CVA tenderness (L) - Neurological Neurological exam: Alert, Normal gait, Oriented X3 - Psychiatric Psychiatric exam: Normal affect, Normal mood - Skin Skin exam: Normal color. negative: Abrasion Type of lesion: negative: abrasion Course Vital Signs 06/22/18 18:01 Temperature 97.9 F Pulse Rate 74 Respiratory 16 Rate Blood Pressure 123/91 Pulse Ox 95 - Reevaluation(s) Reevaluation #1: 06/22/18 18:16 EKG: NSR 67 Normal axis, RBBB No acute ST-T wave changes No change from 11/13/17 Reevaluation #2: 06/22/18 19:07 Labs reviewed, WBC 2.8, labs are otherwise grossly unremarkable for an acute process. Previous labs were reviewed, patient has a history of intermittent neutropenia. Reevaluation #3: 06/22/18 20:53 Patient reassessed, currently sleeping and awaiting repeat troponin in 20 minutes. Reevaluation #4: 06/22/18 22:03 Repeat Troponin appears negative for myocardial injury. Patient was updated on all results, appears stable for discharge with instructions to follow-up with Dr. Zhang in 1-3 days as directed. Medical Decision Making - Lab Data Result diagrams: 06/22/18 18:20 06/22/18 18:20 Disposition Disposition: Discharge Clinical Impression: Chest pain Qualifiers: Chest pain type: unspecified Qualified Code(s): R07.9 - Chest pain, unspecified Disposition: Home, Self-Care Condition: (2) Stable Instructions: Chest Pain (ED) Additional Instructions: Return to ED if your symptoms worsen or if you have any concerns. Follow-up with your family doctor in 3-5 days as directed. Forms: Patient Portal Access Time of Disposition: 22:04 Quality - Quality Measures Quality Measures: N/A - Blood Pressure Screening Does Patient Have Any of the Following: Active Dx of HTN Blood Pressure Classification: Hypertensive Reading Systolic Measurement: 123 Diastolic Measurement: 91 Screening for High Blood Pressure: Patient Exclusion, Hx of HTN [G9744]
[2018-06-22] MEDS ORDERED: ASPIRIN 81 MG CHEWABLE TABLET PO ONE (18:22)
[2018-06-22 18:30] LABS: EOS % 1.1 % (0-6); GRAN % 39.7 % (47-80); HEMATOCRIT 39.5 % (42.0-52.0); HEMOGLOBIN 12.9 gm/dl (14.0-18.0); LYMPH % 49.8 % (16-45); MEAN CELL VOLUME 86.2 fl (81-97); MEAN CORPUSCULAR HGB CONC 32.7 g/dl (32-36); MEAN PLATELET VOLUME 9.1 fl (7.4-10.4); MONO % 9.4 % (0-9); PLATELET COUNT 111 K/uL (130-400); RED BLOOD COUNT 4.58 M/uL (4.40-5.70); RED CELL DISTRIBUTION WIDTH 15.8 % (11.5-14.5); WHITE BLOOD COUNT W/O DIFF 2.8 K/uL (4.2-12.2)
[2018-06-22 18:31] LABS: MEAN CORPUSCULAR HEMOGLOBIN 28.1 pg (27-33)
[2018-06-22 18:38] LABS: BLOOD UREA NITROGEN 14 mg/dL (6-20); EST GLOMERULAR FILTRATION RATE > 60 mL/min
[2018-06-22 18:39] LABS: TOTAL PROTEIN 6.6 g/dL (6.6-8.7)
[2018-06-22 18:41] LABS: GLUCOSE,RANDOM 127 mg/dL (74-109)
[2018-06-22 18:44] LABS: ALB/GLOB RATIO 1.4 (1.1-1.8); ALBUMIN 3.9 g/dL (4.0-5.0); ALKALINE PHOSPHATASE 113 U/L (40-129); ALT/SGPT 16 U/L (<41); AST/SGOT 23 U/L (10.0-50.0)
--- NOTE | 2018-06-25 08:42 | RADIOLOGY REPORT ---
EXAM: CHEST, TWO VIEWS HISTORY: CHEST PAIN. TECHNIQUE: Frontal and lateral views of the chest were performed. Comparison: 08/27/17. FINDINGS: The heart size is normal. No pulmonary vascular congestion. No infiltrate or pleural effusion. The osseous structures are normal. IMPRESSION: NEGATIVE CHEST EXAMINATION. JOB NUMBER: [id number] [facility]
== END 2018-06-22 22:11 | disposition home or self-care (01) ==
LOC: ER 17:56
DX: R07.89 Other chest pain (principal); R11.0 Nausea; I10 Essential (primary) hypertension; I25.2 Old myocardial infarction; I48.91 Unspecified atrial fibrillation; Z87.891 Personal history of nicotine dependence; Z95.5 Presence of coronary angioplasty implant and graft; Z79.01 Long term (current) use of anticoagulants
CPT/HCPCS: 71046; 80053; 84484; 85025; 93005; 93010; 99284

== ENCOUNTER 2018-08-01 13:05 | Emergency (ER) | payer MEDICARE, MEDICAID ==
--- NOTE | 2018-08-01 13:41 | Emergency Department Record ---
History of Present Illness - General Chief complaint: Bite Insect/other Stated complaint: BEE STING Time Seen by Provider: 08/01/18 13:29 Source: Patient Mode of Arrival: Ambulatory - History of Present Illness Initial comments: Patient states bee sting 40 minutes ago and he is allergic to bee stings complaint: Insect bite/sting Onset/Timin -: Minutes(s) Hx Tetanus Toxoid Vaccination: Yes Year of Tetanus Vaccination: unknown - Related Data Previous Rx's Medication Instructions Recorded Prednisone [Prednisone 10Mg] 10 mg PO ASDIR #30 tab 08/01/18 Allergies Allergy/AdvReac Type Severity Reaction Status Date / Time venom-honey bee Allergy Severe ANAPHYLAXIS Verified 08/01/18 13:18 [bee venom (honey bee)] diazepam [From Valium] Allergy Intermediate unknown Verified 08/01/18 13:18 fentanyl Allergy Intermediate ITCHING Verified 08/01/18 13:18 ketorolac tromethamine Allergy Intermediate unknown Verified 08/01/18 13:18 morphine Allergy Intermediate unknown Verified 08/01/18 13:18 orphenadrine citrate Allergy Intermediate unknown Verified 08/01/18 13:18 [From Norflex] iodine Allergy Mild ITCHING Verified 08/01/18 13:18 Travel Screening - Travel/Exposure Within Last 30 Days Have you traveled within the last 30 days?: No - Travel/Exposure Within Last Year Have you traveled outside the [place] in the last year?: No - Additonal Travel Details Have you been exposed to anyone with a communicable illness?: No Review of Systems Reviewed: No additional complaints except as noted below Constitutional: Reports: As per HPI. Denies: Chills, Fever, Malaise, Night sweats, Weakness, Weight change Eyes: Reports: As per HPI. Denies: Eye discharge, Eye pain, Photophobia, Vision change ENT: Reports: As per HPI. Denies: Congestion, Dental pain, Ear pain, Epistaxis , Hearing loss, Throat pain Respiratory: Reports: As per HPI. Denies: Cough, Dyspnea, Hemoptysis, Stridor, Wheezes Cardiovascular: Reports: As per HPI. Denies: Arrhythmia, Chest pain, Dyspnea on exertion, Edema, Murmurs, Orthopnea, Palpitations, Paroxysmal nocturnal dyspnea, Rheumatic Fever, Syncope Endocrine: Reports: As per HPI. Denies: Fatigue, Heat or cold intolerance, Polydipsia, Polyuria Gastrointestinal: Reports: As per HPI. Denies: Abdominal pain, Constipation, Diarrhea, Hematemesis, Hematochezia, Melena, Nausea, Vomiting Genitourinary: Reports: As per HPI. Denies: Dysuria, Frequency, Hematuria, Incontinence, Retention, Testicular pain, Testicular mass, Urgency Musculoskeletal: Reports: As per HPI. Denies: Arthralgia, Back pain, Gout, Joint swelling, Myalgia, Neck pain Skin: Reports: As per HPI. Denies: Bruising, Change in color, Change in hair/ nails, Lesions, Pruritus, Rash Neurological: Reports: As per HPI. Denies: Abnormal gait, Confusion, Headache, Numbness, Paresthesias, Seizure, Tingling, Tremors, Vertigo, Weakness Psychiatric: Reports: As per HPI. Denies: Anxiety, Auditory hallucinations, Depression, Homicidal thoughts, Suicidal thoughts, Visual hallucinations Hematological/Lymphatic: Reports: As per HPI. Denies: Anemia, Blood Clots, Easy bleeding, Easy bruising, Swollen glands Past Medical History - SOCIAL HISTORY Smoking Status: Former smoker Alcohol Use: None Drug Use: None - RESPIRATORY Hx Respiratory Disorders: Yes Hx Bronchitis: Yes Hx COPD: Yes Hx Dyspnea: Yes Hx Pneumonia: Yes Hx Sleep Apnea: Yes Hx of CPAP: Yes - CARDIOVASCULAR Hx Cardio Disorders: Yes Hx Cardiac Cath: Yes (3 stents) Hx CHF: No Hx Edema: No Hx Heart Attack: Yes (2007,2008) Hx Hypertension: Yes Hx Irregular Heartbeat: Yes (a-fib) Comment:: CAD; high cholesterol - NEURO Hx Neuro Disorders: Yes Hx Neuropathy: Yes Comment:: neuropathy in legs and arms - GI Hx GI Disorders: Yes Hx Reflux: Yes Hx Rectal Bleeding: Yes (hemorrhoids) Hx Ulcer: Yes Hx of Polyps: Yes - Hx Genitourinary Disorders: Yes Comment:: cysts in scrotum - ENDOCRINE Hx Endocrine Disorders: Yes Hx Diabetes: Yes - MUSCULOSKELETAL Hx Musculoskeletal Disorders: Yes Hx Fibromyalgia: Yes Comment:: chronic pain, spinal stenosis - PSYCH Hx Psych Problems: Yes Hx Anxiety: Yes Hx Depression: Yes - HEMATOLOGY/ONCOLOGY Hx Hematology/Oncology Disorders: No Family Medical History Any Significant Family History?: Yes Hx Anxiety: Brother/Sister Hx Dementia: Mother Hx Depression: Brother/Sister Hx Diabetes: Father, Mother Hx Heart Disease: Father, Mother Hx HTN: Father, Mother Hx Resp Disorders: Mother Hx Seizures: Children Hx Stroke: Mother *Stroke Comment: MOm-brain aneurysm Physical Exam - General General Appearance: Alert, Oriented x3, Cooperative, No acute distress - Head Head exam: Normal inspection - Eye Eye exam: Normal appearance, PERRL Pupils: Normal accommodation - ENT ENT exam: Normal exam, Mucous membranes moist, Normal external ear exam, Normal orophraynx, TM's normal bilaterally Ear exam: Normal external inspection. negative: External canal tenderness Nasal Exam: Normal inspection. negative: Discharge, Sinus tenderness Mouth exam: Normal external inspection, Tongue normal Teeth exam: Normal inspection. negative: Dental caries Throat exam: Normal inspection. negative: Tonsillar erythema, Tonsillar exudate - Neck Neck exam: Normal inspection, Full ROM. negative: Tenderness - Respiratory Respiratory exam: Normal lung sounds bilaterally. negative: Respiratory distress - Cardiovascular Cardiovascular Exam: Regular rate, Normal rhythm, Normal heart sounds - GI/Abdominal GI/Abdominal exam: Soft, Normal bowel sounds. negative: Tenderness - Rectal Rectal exam: Deferred - exam: Deferred - Extremities Extremities exam: Normal inspection, Full ROM, Normal capillary refill. negative: Tenderness - Back Back exam: Reports: Normal inspection, Full ROM. Denies: Muscle spasm, Rash noted, Tenderness - Neurological Neurological exam: Alert, Normal gait, Oriented X3, Reflexes normal - Psychiatric Psychiatric exam: Normal affect, Normal mood - Skin Skin exam: Dry, Intact, Normal color, Warm Type of lesion: Bite/sting (right upper arm and it has been a red [place] sal[place] the size of an orange) Course Vital Signs 08/01/18 13:23 Temperature 97.9 F Pulse Rate 81 Respiratory 16 Rate Blood Pressure 124/81 Pulse Ox 96 - Reevaluation(s) Reevaluation #1: 08/01/18 13:41 doing better Disposition Clinical Impression: Bee sting Qualifiers: Encounter type: initial encounter Injury intent: accidental or unintentional Qualified Code(s): T63.441A - Toxic effect of venom of bees, accidental ( unintentional), initial encounter Disposition: Home, Self-Care Condition: (1) Good Instructions: Insect Bite or Sting (ED) Additional Instructions: follow up with family next week kristal 25 mg indra 6 hours and take prednisone taper Prescriptions: Prednisone [Prednisone 10Mg] 10 mg PO ASDIR #30 tab Forms: Patient Portal Access Time of Disposition: 14:25 Quality - Quality Measures Quality Measures: N/A - Blood Pressure Screening Does Patient Have Any of the Following: No Blood Pressure Classification: Pre-Hypertensive BP Reading Systolic Measurement: 124 Diastolic Measurement: 81 Screening for High Blood Pressure: < Pre-Hypertensive BP, F/U Documented > [ [id number]] Pre-Hypertensive Follow-up Interventions: Referral to alternative/primary care provider.
[2018-08-01] MEDS: DIPHENHYDRAMINE HCL 50 MG/ML VIAL IM ONE (13:44)
[2018-08-01] MEDS: METHYLPREDNISOLONE 80MG/VIAL IM ONE (13:44)
[2018-08-01] MEDS: ONDANSETRON 4 MG ODT TABLET SL ONE (13:59)
== END 2018-08-01 14:34 | disposition home or self-care (01) ==
LOC: ER 13:05
DX: T63.441A Toxic effect of venom of bees, accidental (unintentional), initial encounter (principal); R22.31 Localized swelling, mass and lump, right upper limb; I10 Essential (primary) hypertension; I25.2 Old myocardial infarction; E11.9 Type 2 diabetes mellitus without complications; Z87.891 Personal history of nicotine dependence
CPT/HCPCS: 96372; 99282; 99283; J1040; J1200

== ENCOUNTER 2019-01-19 05:54 | Emergency (ER) | payer MEDICARE, MEDICAID ==
[2019-01-19] MEDS ORDERED: ACETAMINOPHEN 1,000 MG/100 ML BTL IVPB ONE (06:11)
--- NOTE | 2019-01-19 06:11 | Emergency Department Record ---
History of Present Illness - General Source: Patient, Family Mode of Arrival: Ambulatory Limitations: No limitations - History of Present Illness Initial Comments: 58 yo male presents with a feeling of shortness of breath. He woke up at 5am with the symptoms. He denies fever or cough. He quit smoking in 2007. He denies a history of asthma or COPD. He does have a history for CAD and atrial fibrillation. He was [place] [facility] [place] ago for chest pain and shortness of breath. He was seen again on 01/15/19 in the ED. He states he was in his usual state of health yesterday. He has frequent chronic chest wall pain. No leg pain or swelling. No history of PE. He is on Eliquis. He does get exposed to second hand smoke from his son. [facility] reviewed. ED [place] [facility] [place] he was admitted [place]12. He was worked up with a stress test and CTA of the chest. The testing was negative for acute abnormal findings. The last cath was 2016 demonstrated patent stents with a normal EF . The 01/13/19 [facility]ican Cardiolite demonstrated fixed anterior and anterospetal defects without reversibility. EF 70% during the admission during the 01/12/19 admission. He was admitted to [facility] 12/30/18. Part of that work up included a CTA of the chest, abdomen and pelvis compared to a 12/17/18 without any changes. NO changes or acute findings. [facility] ED visit 12/09/18 Normal VQ scan in the ED CTA of the chest 06/29/18 was negative for acute process or changes. His PCP is Dr Arriola His corner bead operator is Dr Voice RICHARD Complaint: Chest pain, Pain with inspiration, Shortness of breath Onset/Timin -: Hour(s) Severity: Moderate Quality: Other Consistency: Constant, Getting worse Improves With: Nothing Worsens With: Exertion, Lying flat Known History Of: COPD Context: Other Associated Symptoms: Chest pain Treatments Prior to Arrival: None - Related Data Home Oxygen Therapy: No <MARILU PALACIO - Last Filed: 01/19/19 06:56> <Nayana Sam - Last Filed: 01/19/19 09:40> - General Chief Complaint: Shortness of breath Stated Complaint: DEJON Time Seen by Provider: 01/19/19 06:00 - Related Data Home Medications Medication Instructions Recorded Confirmed Last Taken Bupropion HCl [Bupropion HCl Sr] 150 mg PO BID 01/19/19 01/19/19 Unknown Cyclobenzaprine HCl [Flexeril] 10 mg PO TID 01/19/19 01/19/19 Unknown Escitalopram Oxalate [Lexapro] 20 mg PO DAILY 01/19/19 01/19/19 Unknown Metformin HCl 500 mg PO BID 01/19/19 01/19/19 Unknown Pregabalin [Lyrica] 150 mg PO BID 01/19/19 01/19/19 Unknown Allergies Allergy/AdvReac Type Severity Reaction Status Date / Time venom-honey bee Allergy Severe ANAPHYLAXIS Verified 08/01/18 13:18 [bee venom (honey bee)] diazepam [From Valium] Allergy Intermediate unknown Verified 08/01/18 13:18 fentanyl Allergy Intermediate ITCHING Verified 08/01/18 13:18 ketorolac tromethamine Allergy Intermediate unknown Verified 08/01/18 13:18 morphine Allergy Intermediate unknown Verified 08/01/18 13:18 orphenadrine citrate Allergy Intermediate unknown Verified 08/01/18 13:18 [From Norflex] iodine Allergy Mild ITCHING Verified 08/01/18 13:18 Travel Screening - Travel/Exposure Within Last 30 Days Have you traveled within the last 30 days?: No <MARILU PALACIO - Last Filed: 01/19/19 06:56> Review of Systems Constitutional: Denies: Chills, Fever, Malaise, Weakness Eyes: Denies: Eye discharge, Eye pain, Photophobia, Vision change ENT: Denies: Congestion, Throat pain Respiratory: Reports: Dyspnea. Denies: Cough, Hemoptysis Cardiovascular: Reports: Chest pain (chronic), Other (Hx of atrial fibrillation) . Denies: Dyspnea on exertion, Edema, Palpitations, Syncope Endocrine: Denies: Fatigue Gastrointestinal: Denies: Abdominal pain, Diarrhea, Nausea, Vomiting Genitourinary: Denies: Dysuria, Frequency, Hematuria Musculoskeletal: Denies: Arthralgia, Back pain, Myalgia Skin: Denies: Bruising, Change in color, Rash Neurological: Denies: Headache Psychiatric: Denies: Anxiety Hematological/Lymphatic: Denies: Easy bleeding, Easy bruising <MARILU PALACIO - Last Filed: 01/19/19 06:56> Past Medical History - SOCIAL HISTORY Smoking Status: Former smoker Alcohol Use: None Drug Use: None - RESPIRATORY Hx Respiratory Disorders: Yes Hx Bronchitis: Yes Hx COPD: Yes Hx Dyspnea: Yes Hx Pneumonia: Yes Hx Sleep Apnea: Yes Hx of CPAP: Yes - CARDIOVASCULAR Hx Cardio Disorders: Yes Hx Cardiac Cath: Yes (3 stents) Hx CHF: No Hx Edema: No Hx Heart Attack: Yes (2007,2008) Hx Hypertension: Yes Hx Irregular Heartbeat: Yes (a-fib) Comment:: CAD; high cholesterol - NEURO Hx Neuro Disorders: Yes Hx Neuropathy: Yes Comment:: neuropathy in legs and arms - GI Hx GI Disorders: Yes Hx Reflux: Yes Hx Rectal Bleeding: Yes (hemorrhoids) Hx Ulcer: Yes Hx of Polyps: Yes - Hx Genitourinary Disorders: Yes Comment:: cysts in scrotum - ENDOCRINE Hx Endocrine Disorders: Yes Hx Diabetes: Yes - MUSCULOSKELETAL Hx Musculoskeletal Disorders: Yes Hx Fibromyalgia: Yes Comment:: chronic pain, spinal stenosis - PSYCH Hx Psych Problems: Yes Hx Anxiety: Yes Hx Depression: Yes - HEMATOLOGY/ONCOLOGY Hx Hematology/Oncology Disorders: No <MARILU PALACIO - Last Filed: 01/19/19 06:56> Family Medical History Any Significant Family History?: Yes Hx Anxiety: Brother/Sister Hx Dementia: Mother Hx Depression: Brother/Sister Hx Diabetes: Father, Mother Hx Heart Disease: Father, Mother Hx HTN: Father, Mother Hx Resp Disorders: Mother Hx Seizures: Children Hx Stroke: Mother *Stroke Comment: MOm-brain aneurysm <MARILU PALACIO - Last Filed: 01/19/19 06:56> Physical Exam - General General Appearance: Alert, Oriented x3, Cooperative, No acute distress Limitations: No limitations - Head Head exam: Atraumatic, Normal inspection - Eye Eye exam: Normal appearance, PERRL. negative: Conjunctival injection, Scleral icterus - ENT ENT exam: Normal exam Ear exam: Normal external inspection Nasal Exam: Normal inspection Mouth exam: Normal external inspection - Neck Neck exam: Normal inspection - Respiratory Respiratory exam: Chest wall tenderness (tender mid sternum with pectus excavatum), Decreased breath sounds, Wheezes (mild expiratory). negative: Accessory muscle use, Prolonged expiratory, Respiratory distress, Rhonchi - Cardiovascular Cardiovascular Exam: Regular rate, Normal rhythm, Normal heart sounds Peripheral Pulses: 2+: Radial (R), Radial (L) - GI/Abdominal GI/Abdominal exam: Soft. negative: Tenderness - Rectal Rectal exam: Deferred - exam: Deferred - Extremities Extremities exam: Normal inspection. negative: Tenderness - Back Back exam: Denies: CVA tenderness (R), CVA tenderness (L), Muscle spasm, Paraspinal tenderness, Tenderness, Vertebral tenderness - Neurological Neurological exam: Alert, Normal gait, Oriented X3. negative: Altered - Psychiatric Psychiatric exam: Normal affect, Normal mood. negative: Agitated, Anxious - Skin Skin exam: Dry, Intact, Normal color, Warm <MARILU PALACIO - Last Filed: 01/19/19 06:56> Course Vital Signs 01/19/19 05:55 Pulse Rate 95 H Respiratory 28 H Rate Blood Pressure 144/103 Pulse Ox 94 L - Reevaluation(s) Reevaluation #1: EKG 05:55 Rate 88 Intervals Qtc 492, RBBB Reva normal ST No acute changes No changes from 06/22/18 01/19/19 06:03 01/19/19 06:56 The labs were reviewed No acute significant changes on the CBC, CMP The troponin is normal 01/19/19 07:03 The patient has improved air exchange and no wheeze after the Duoneb He has never had Pulmonary Function Tests in the past. He was on an inhaler at different times in the past. 01/19/19 07:05 The case was turned over to DR Sam at shift change See her documentation for further care <MARILU PALACIO - Last Filed: 01/19/19 06:56> Vital Signs 01/19/19 01/19/19 05:55 06:49 Pulse Rate 95 H 90 Respiratory 28 H 20 Rate Blood Pressure 144/103 Pulse Ox 94 L - Reevaluation(s) Reevaluation #2: 01/19/19 09:38 pt feels better and has been resting. 2nd troponin is negative <Nayana Sam - Last Filed: 01/19/19 09:40> Medical Decision Making - Lab Data Result diagrams: 01/19/19 06:20 01/19/19 06:20 <MARILU PALACIO - Last Filed: 01/19/19 06:56> - Lab Data Result diagrams: 01/19/19 06:20 01/19/19 06:20 Lab Results 01/19/19 01/19/19 01/19/19 Range/Units 06:20 06:20 09:00 WBC 6.0 (4.2-12.2) K/uL RBC 5.16 (4.40-5.70) M/uL Hgb 15.5 (14.0-18.0) gm/dl Hct 45.8 (42.0-52.0) % MCV 88.8 (81-97) fl MCH 30.0 (27-33) pg MCHC 33.8 (32-36) g/dl RDW 15.0 H (11.5-14.5) % Plt Count 142 (130-400) K/uL MPV 9.5 (7.4-10.4) fl Gran % 47.2 (47-80) % Lymphocytes % 43.5 (16-45) % Monocytes % 7.7 (0-9) % Eosinophils % 1.3 (0-6) % Basophils % 0.3 (0-6) % Sodium 136 (136-145) mmol/L Potassium 4.1 (3.4-4.5) mmol/L Chloride 100 (98-107) mmol/L Carbon Dioxide 22.0 (22-29) mmol/L Anion Gap 14.0 (7-16) BUN 18 (6-20) mg/dL Creatinine 0.8 (0.7-1.2) mg/dL Estimated GFR > 60 mL/min Random Glucose 144 H (74-109) mg/dL Calcium 9.8 (8.6-10.0) mg/dL Total Bilirubin 0.50 (0.2-1.0) mg/dL AST 38 (10.0-50.0) U/L ALT 25 (<41) U/L Alkaline Phosphatase 159 H (40-129) U/L Troponin T < 0.010 < 0.010 (0-0.010) ng/mL Total Protein 7.2 (6.6-8.7) g/dL Albumin 4.2 (4.0-5.0) g/dL Globulin 3.0 (1.4-4.8) gm/dL Albumin/Globulin Ratio 1.4 (1.1-1.8) <Nayana Sam - Last Filed: 01/19/19 09:40> Disposition Disposition: Discharge <MARILU PALACIO - Last Filed: 01/19/19 06:56> <Nayana Sam - Last Filed: 01/19/19 09:40> Clinical Impression: Chest wall pain, Wheeze Disposition: Home, Self-Care Condition: (1) Good Instructions: Dyspnea (ED), Chest Wall Pain (ED) Additional Instructions: Call your doctor today to follow up this ER visit Discuss with your doctor consider Pulmonary Function Testing Return to the ER if worse, fever, cough, short of breath. Forms: Patient Portal Access Quality - Quality Measures Quality Measures: N/A - Blood Pressure Screening Does Patient Have Any of the Following: Active Dx of HTN Blood Pressure Classification: Hypertensive Reading Systolic Measurement: 144 Diastolic Measurement: 103 Screening for High Blood Pressure: Patient Exclusion, Hx of HTN [G9744] <MARILU PALACIO - Last Filed: 01/19/19 06:56> - Blood Pressure Screening Does Patient Have Any of the Following: No Blood Pressure Classification: Hypertensive Reading Systolic Measurement: 144 Diastolic Measurement: 103 <Nayana Sam - Last Filed: 01/19/19 09:40>
[2019-01-19 06:32] LABS: BASO % 0.3 % (0-6); EOS % 1.3 % (0-6); GRAN % 47.2 % (47-80); HEMATOCRIT 45.8 % (42.0-52.0); HEMOGLOBIN 15.5 gm/dl (14.0-18.0); LYMPH % 43.5 % (16-45); MEAN CELL VOLUME 88.8 fl (81-97); MEAN CORPUSCULAR HGB CONC 33.8 g/dl (32-36); MEAN PLATELET VOLUME 9.5 fl (7.4-10.4); MONO % 7.7 % (0-9); PLATELET COUNT 142 K/uL (130-400); RED BLOOD COUNT 5.16 M/uL (4.40-5.70)
[2019-01-19] MEDS ORDERED: IPRATROPIUM/ALBUTEROL (0.5MG/3MG) NEB INH ONE (06:33)
[2019-01-19 06:42] LABS: BLOOD UREA NITROGEN 18 mg/dL (6-20); CREATININE 0.8 mg/dL (0.7-1.2); EST GLOMERULAR FILTRATION RATE > 60 mL/min
[2019-01-19 06:43] LABS: TOTAL PROTEIN 7.2 g/dL (6.6-8.7)
[2019-01-19 06:45] LABS: GLUCOSE,RANDOM 144 mg/dL (74-109)
[2019-01-19 06:47] LABS: ALB/GLOB RATIO 1.4 (1.1-1.8); ALBUMIN 4.2 g/dL (4.0-5.0); ALKALINE PHOSPHATASE 159 U/L (40-129); ALT/SGPT 25 U/L (<41); AST/SGOT 38 U/L (10.0-50.0)
== END 2019-01-19 09:55 | disposition home or self-care (01) ==
LOC: ER 05:54
DX: R07.89 Other chest pain (principal); R06.2 Wheezing; I25.10 Atherosclerotic heart disease of native coronary artery without angina pectoris; I48.91 Unspecified atrial fibrillation; I10 Essential (primary) hypertension; E11.9 Type 2 diabetes mellitus without complications; I25.2 Old myocardial infarction; Z87.891 Personal history of nicotine dependence
CPT/HCPCS: 71046; 80053; 84484; 85025; 93005; 93010; 94640; 99284

== ENCOUNTER 2019-03-08 00:11 | Emergency (ER) | payer MEDICARE, MEDICAID ==
[2019-03-08] MEDS ORDERED: PROMETHAZINE HCL 25 MG TABLET PO ONE (00:32)
--- NOTE | 2019-03-08 00:37 | Emergency Department Record ---
History of Present Illness - General Chief complaint: Nausea, Vomiting, Diarrhea Stated complaint: CHILLS, VOMMITING Time Seen by Provider: 03/08/19 00:17 Source: Patient Mode of Arrival: Ambulatory Limitations: No limitations - History of Present Illness Initial comments: The patient is here due to a 3 day hx of cough, congestion, and intermittent nausea and vomiting. He denies any AP, CP, fever, SOB, back pain or NGUYEN. The patient states he recently had a bout of Afib but that has resolved. He does take Eliquis chronically. MD complaint: Nausea, Vomiting Onset/Timin -: Days(s) Description of Vomiting: Food contents Associated Abdominal Pain: Yes (tender) Location: Diffuse Radiation: None Quality: Aching Consistency: Constant Improves with: None Worsens with: None Associated Symptoms: Cough, Fever/chills, Loss of appetite, Nausea/vomiting - Related Data Previous Rx's Medication Instructions Recorded Promethazine HCl [Phenergan] 25 mg PO TID #10 tablet 03/08/19 Allergies Allergy/AdvReac Type Severity Reaction Status Date / Time venom-honey bee Allergy Severe ANAPHYLAXIS Verified 03/08/19 00:20 [bee venom (honey bee)] diazepam [From Valium] Allergy Intermediate unknown Verified 03/08/19 00:20 fentanyl Allergy Intermediate ITCHING Verified 03/08/19 00:20 ketorolac tromethamine Allergy Intermediate unknown Verified 03/08/19 00:20 morphine Allergy Intermediate unknown Verified 03/08/19 00:20 orphenadrine citrate Allergy Intermediate unknown Verified 03/08/19 00:20 [From Norflex] iodine Allergy Mild ITCHING Verified 03/08/19 00:20 Travel Screening - Travel/Exposure Within Last 30 Days Have you traveled within the last 30 days?: No - Travel/Exposure Within Last Year Have you traveled outside the [place] in the last year?: No - Additonal Travel Details Have you been exposed to anyone with a communicable illness?: No - Travel Symptoms Symptom Screening: None Review of Systems Constitutional: Reports: Malaise. Denies: Chills, Fever Eyes: Denies: Eye discharge ENT: Reports: Congestion Respiratory: Reports: Cough. Denies: Dyspnea, Hemoptysis, Stridor, Wheezes Cardiovascular: Denies: Arrhythmia Endocrine: Reports: Fatigue Gastrointestinal: Denies: Diarrhea, Vomiting Genitourinary: Denies: Dysuria Musculoskeletal: Denies: Arthralgia Skin: Denies: Bruising Past Medical History - SOCIAL HISTORY Smoking Status: Former smoker Alcohol Use: Rare Drug Use: None - RESPIRATORY Hx Respiratory Disorders: Yes Hx Bronchitis: Yes Hx COPD: Yes Hx Dyspnea: Yes Hx Pneumonia: Yes Hx Sleep Apnea: Yes Hx of CPAP: Yes - CARDIOVASCULAR Hx Cardio Disorders: Yes Hx Cardiac Cath: Yes (3 stents) Hx CHF: No Hx Edema: No Hx Heart Attack: Yes (2007,2008) Hx Hypertension: Yes Hx Irregular Heartbeat: Yes (a-fib) Comment:: CAD; high cholesterol - NEURO Hx Neuro Disorders: Yes Hx Neuropathy: Yes Comment:: neuropathy in legs and arms - GI Hx GI Disorders: Yes Hx Reflux: Yes Hx Rectal Bleeding: Yes (hemorrhoids) Hx Ulcer: Yes Hx of Polyps: Yes - Hx Genitourinary Disorders: Yes Comment:: cysts in scrotum - ENDOCRINE Hx Endocrine Disorders: Yes Hx Diabetes: Yes - MUSCULOSKELETAL Hx Musculoskeletal Disorders: Yes Hx Fibromyalgia: Yes Comment:: chronic pain, spinal stenosis - PSYCH Hx Psych Problems: Yes Hx Anxiety: Yes Hx Depression: Yes - HEMATOLOGY/ONCOLOGY Hx Hematology/Oncology Disorders: No Family Medical History Any Significant Family History?: No Hx Anxiety: Brother/Sister Hx Dementia: Mother Hx Depression: Brother/Sister Hx Diabetes: Father, Mother Hx Heart Disease: Father, Mother Hx HTN: Father, Mother Hx Resp Disorders: Mother Hx Seizures: Children Hx Stroke: Mother *Stroke Comment: MOm-brain aneurysm Physical Exam - General General Appearance: Alert, Oriented x3, Cooperative, No acute distress - Head Head exam: Atraumatic, Normocephalic, Normal inspection - Eye Eye exam: Normal appearance, PERRL, EOMI - ENT Throat exam: Normal inspection. negative: Tonsillar erythema, Tonsillar exudate - Neck Neck exam: Normal inspection, Full ROM. negative: Tenderness - Respiratory Respiratory exam: Normal lung sounds bilaterally. negative: Respiratory distress - Cardiovascular Cardiovascular Exam: Regular rate, Normal rhythm, Normal heart sounds. negative: Diastolic murmur, Systolic murmur - GI/Abdominal GI/Abdominal exam: Soft, Normal bowel sounds. negative: Distended, Guarding, Rebound, Rigid, Tenderness - Extremities Extremities exam: Normal inspection, Full ROM, Normal capillary refill. negative: Tenderness - Back Back exam: Reports: Normal inspection - Neurological Neurological exam: Alert, Normal gait. negative: Abnormal gait, Motor sensory deficit - Psychiatric Psychiatric exam: negative: Anxious Course Vital Signs 03/08/19 03/08/19 00:17 00:19 Temperature 98.0 F 98.0 F Pulse Rate [ 96 H Left Radial] Respiratory 16 16 Rate Blood Pressure 132/88 [Left Arm] Pulse Ox 96 96 - Reevaluation(s) Reevaluation #1: The patient is doing a lot better at this time. He no longer is nauseated and no longer is dry heaving. I did explain to the patient I see no signs of any bacterial lung infection. His abdomen is very soft and nontender but his bilirub in is very slightly elevated along with the direct bili. The ALT and AST are normal but we are unable to perform an Alk Phos due to machine malfunction. I did instruct the patient to see his PCP today for recheck or return to the ER in 12 hours for repeat lab work. 03/08/19 01:31 Medical Decision Making - Data Complexity MDM Data: Labs Ordered and/or Reviewed, X-Ray Ordered and/or Reviewed - Lab Data Result diagrams: 03/08/19 00:40 03/08/19 00:40 - Radiology Data Radiology results: Report reviewed (CXR: Neg.) Disposition Disposition: Discharge Clinical Impression: Cough, Bronchitis Disposition: Home, Self-Care Condition: (2) Stable Instructions: Upper Respiratory Infection (ED) Additional Instructions: Please continue your regular medicines and use the Phenergan for nausea and vomiting. Please see your family doctor today for recheck and to have the Total and Direct Bilirubin rechecked. Return to the ER in 12 hours if not better. Prescriptions: Promethazine HCl [Phenergan] 25 mg PO TID #10 tablet Forms: Patient Portal Access Time of Disposition: 01:35 Quality - Quality Measures Quality Measures: N/A - Blood Pressure Screening View Details: Yes Does Patient Have Any of the Following: No Blood Pressure Classification: Pre-Hypertensive BP Reading Systolic Measurement: 132 Diastolic Measurement: 88 Screening for High Blood Pressure: < Pre-Hypertensive BP, F/U Documented > [G8950] Pre-Hypertensive Follow-up Interventions: Referral to alternative/primary care provider.
[2019-03-08 00:50] LABS: BASO % 0.4 % (0-6); EOS % 1.4 % (0-6); GRAN % 41.1 % (47-80); HEMATOCRIT 46.1 % (42.0-52.0); HEMOGLOBIN 15.9 gm/dl (14.0-18.0); LYMPH % 46.8 % (16-45); MEAN CELL VOLUME 87.8 fl (81-97); MEAN CORPUSCULAR HEMOGLOBIN 30.3 pg (27-33); MEAN CORPUSCULAR HGB CONC 34.5 g/dl (32-36); MONO % 10.3 % (0-9); PLATELET COUNT 174 K/uL (130-400); RED BLOOD COUNT 5.25 M/uL (4.40-5.70); RED CELL DISTRIBUTION WIDTH 14.1 % (11.5-14.5); WHITE BLOOD COUNT W/O DIFF 7.3 K/uL (4.2-12.2)
[2019-03-08 01:06] LABS: BLOOD UREA NITROGEN 14 mg/dL (6-20); CREATININE 0.8 mg/dL (0.7-1.2); EST GLOMERULAR FILTRATION RATE > 60 mL/min
[2019-03-08 01:07] LABS: TOTAL PROTEIN 7.4 g/dL (6.6-8.7)
[2019-03-08 01:09] LABS: GLUCOSE,RANDOM 96 mg/dL (74-109)
[2019-03-08 01:12] LABS: ALB/GLOB RATIO 1.2 (1.1-1.8); ALBUMIN 4.1 g/dL (4.0-5.0); ALT/SGPT 17 U/L (<41); AST/SGOT 35 U/L (10.0-50.0)
[2019-03-08 01:21] LABS: URINE APPEARANCE CLEAR; URINE BILIRUBIN NEGATIVE (NEGATIVE); URINE BLOOD NEGATIVE (NEGATIVE); URINE COLOR YELLOW; URINE GLUCOSE (UA) NEGATIVE (NEGATIVE); URINE KETONE NEGATIVE (NEGATIVE); URINE LEUKOCYTE ESTERASE NEGATIVE (NEGATIVE); URINE NITRITE NEGATIVE (NEGATIVE); URINE PROTEIN NEGATIVE (NEGATIVE); URINE UROBILINOGEN >=8.0 E.U./dL (0.20 - 1.00)
[2019-03-08 02:13] LABS: ALKALINE PHOSPHATASE 125 U/L (40-129)
--- NOTE | 2019-03-08 10:20 | RADIOLOGY REPORT ---
EXAM: CHEST, TWO VIEWS HISTORY: COUGH FOR SEVERAL DAYS. TECHNIQUE: Upright PA and lateral views of the chest were obtained. Comparison: Two view chest radiographic examination dated 01/19/19. FINDINGS: The heart remains normal in size. The pulmonary vasculature is nondilated. Biapical pleural and parenchymal scarring is redemonstrated. Mild elevation of the right hemidiaphragm is again noted. Minor reticular opacity prominence is again demonstrated within each lung peripherally. This appears grossly stable and is likely the result of chronic interstitial change. No costophrenic angle blunting or pneumothorax. Mild levoconvex curvature of the upper thoracic spine. IMPRESSION: NO RADIOGRAPHIC EVIDENCE OF ACUTE CARDIOPULMONARY DISEASE WITHOUT SIGNIFICANT CHANGE SINCE 01/19/19. CHRONIC FINDINGS, DISCUSSED ABOVE. JOB NUMBER: [id number] MTDD
== END 2019-03-08 01:43 | disposition home or self-care (01) ==
LOC: ER 00:11
DX: J20.9 Acute bronchitis, unspecified (principal); R11.2 Nausea with vomiting, unspecified; R19.7 Diarrhea, unspecified; E80.7 Disorder of bilirubin metabolism, unspecified; I10 Essential (primary) hypertension; I25.2 Old myocardial infarction; E11.9 Type 2 diabetes mellitus without complications; Z87.891 Personal history of nicotine dependence
CPT/HCPCS: 71046; 80053; 81003; 82248; 85025; 86140; 99283; 99284; Q0170

== ENCOUNTER 2019-03-10 10:46 | Emergency (ER) | payer MEDICARE, MEDICAID ==
--- NOTE | 2019-03-10 11:43 | Emergency Department Record ---
History of Present Illness - General Chief complaint: Flank Pain Stated complaint: RIGHT FLANK PAIN Time Seen by Provider: 03/10/19 11:15 Source: Patient, RN notes reviewed Mode of Arrival: Ambulatory - History of Present Illness Initial comments: right flank pain started yesterday and worse with palpation and moving around. patient states he was told his liver is cirrhotic. Onset/Timin -: Days(s) Location: Right flank Severity: Severe Severity scale (1-10): 10 Quality: Other Consistency: Constant Improves with: None Worsens with: None Reports: Denies other symptoms - Related Data Previous Rx's Medication Instructions Recorded Promethazine HCl [Phenergan] 25 mg PO TID #10 tablet 03/08/19 Tizanidine HCl [Zanaflex] 4 mg PO TID #30 capsule 03/10/19 Allergies Allergy/AdvReac Type Severity Reaction Status Date / Time venom-honey bee Allergy Severe ANAPHYLAXIS Verified 03/10/19 11:00 [bee venom (honey bee)] diazepam [From Valium] Allergy Intermediate unknown Verified 03/10/19 11:00 fentanyl Allergy Intermediate ITCHING Verified 03/10/19 11:00 ketorolac tromethamine Allergy Intermediate unknown Verified 03/10/19 11:00 morphine Allergy Intermediate unknown Verified 03/10/19 11:00 orphenadrine citrate Allergy Intermediate unknown Verified 03/10/19 11:00 [From Norflex] iodine Allergy Mild ITCHING Verified 03/10/19 11:00 Travel Screening - Travel/Exposure Within Last 30 Days Have you traveled within the last 30 days?: No - Travel/Exposure Within Last Year Have you traveled outside the [place] in the last year?: No - Additonal Travel Details Have you been exposed to anyone with a communicable illness?: No - Travel Symptoms Symptom Screening: None Review of Systems Reviewed: No additional complaints except as noted below Constitutional: Reports: As per HPI. Denies: Chills, Fever, Malaise, Night sweats, Weakness, Weight change Eyes: Reports: As per HPI. Denies: Eye discharge, Eye pain, Photophobia, Vision change ENT: Reports: As per HPI. Denies: Congestion, Dental pain, Ear pain, Epistaxis, Hearing loss, Throat pain Respiratory: Reports: As per HPI. Denies: Cough, Dyspnea, Hemoptysis, Stridor, Wheezes Cardiovascular: Reports: As per HPI. Denies: Arrhythmia, Chest pain, Dyspnea on exertion, Edema, Murmurs, Orthopnea, Palpitations, Paroxysmal nocturnal dyspnea, Rheumatic Fever, Syncope Endocrine: Reports: As per HPI. Denies: Fatigue, Heat or cold intolerance, Polydipsia, Polyuria Gastrointestinal: Reports: As per HPI. Denies: Abdominal pain, Constipation, Diarrhea, Hematemesis, Hematochezia, Melena, Nausea, Vomiting Genitourinary: Reports: As per HPI. Denies: Dysuria, Frequency, Hematuria, Incontinence, Retention, Testicular pain, Testicular mass, Urgency Musculoskeletal: Reports: As per HPI. Denies: Arthralgia, Back pain, Gout, Joint swelling, Myalgia, Neck pain Skin: Reports: As per HPI. Denies: Bruising, Change in color, Change in hair/nails, Lesions, Pruritus, Rash Neurological: Reports: As per HPI. Denies: Abnormal gait, Confusion, Headache, Numbness, Paresthesias, Seizure, Tingling, Tremors, Vertigo, Weakness Psychiatric: Reports: As per HPI. Denies: Anxiety, Auditory hallucinations, Depression, Homicidal thoughts, Suicidal thoughts, Visual hallucinations Hematological/Lymphatic: Reports: As per HPI. Denies: Anemia, Blood Clots, Easy bleeding, Easy bruising, Swollen glands Past Medical History - SOCIAL HISTORY Smoking Status: Former smoker Alcohol Use: None Drug Use: None - RESPIRATORY Hx Respiratory Disorders: Yes Hx Bronchitis: Yes Hx COPD: Yes Hx Dyspnea: Yes Hx Pneumonia: Yes Hx Sleep Apnea: Yes Hx of CPAP: Yes - CARDIOVASCULAR Hx Cardio Disorders: Yes Hx Cardiac Cath: Yes (3 stents) Hx CHF: No Hx Edema: No Hx Heart Attack: Yes (2007,2008) Hx Hypertension: Yes Hx Irregular Heartbeat: Yes (a-fib) Comment:: CAD; high cholesterol - NEURO Hx Neuro Disorders: Yes Hx Neuropathy: Yes Comment:: neuropathy in legs and arms - GI Hx GI Disorders: Yes Hx Reflux: Yes Hx Rectal Bleeding: Yes (hemorrhoids) Hx Ulcer: Yes Hx of Polyps: Yes - Hx Genitourinary Disorders: Yes Comment:: cysts in scrotum - ENDOCRINE Hx Endocrine Disorders: Yes Hx Diabetes: Yes - MUSCULOSKELETAL Hx Musculoskeletal Disorders: Yes Hx Fibromyalgia: Yes Comment:: chronic pain, spinal stenosis - PSYCH Hx Psych Problems: Yes Hx Anxiety: Yes Hx Depression: Yes - HEMATOLOGY/ONCOLOGY Hx Hematology/Oncology Disorders: No Family Medical History Any Significant Family History?: Yes Hx Anxiety: Brother/Sister Hx Dementia: Mother Hx Depression: Brother/Sister Hx Diabetes: Father, Mother Hx Heart Disease: Father, Mother Hx HTN: Father, Mother Hx Resp Disorders: Mother Hx Seizures: Children Hx Stroke: Mother *Stroke Comment: MOm-brain aneurysm Physical Exam - General General Appearance: Alert, Oriented x3, Cooperative, No acute distress - Head Head exam: Normal inspection - Eye Eye exam: Normal appearance, PERRL Pupils: Normal accommodation - ENT ENT exam: Normal exam, Mucous membranes moist, Normal external ear exam, Normal orophraynx, TM's normal bilaterally Ear exam: Normal external inspection. negative: External canal tenderness Nasal Exam: Normal inspection. negative: Discharge, Sinus tenderness Mouth exam: Normal external inspection, Tongue normal Teeth exam: Normal inspection. negative: Dental caries Throat exam: Normal inspection. negative: Tonsillar erythema, Tonsillar exudate - Neck Neck exam: Normal inspection, Full ROM. negative: Tenderness - Respiratory Respiratory exam: Normal lung sounds bilaterally. negative: Respiratory d istress - Cardiovascular Cardiovascular Exam: Regular rate, Normal rhythm, Normal heart sounds - GI/Abdominal GI/Abdominal exam: Soft, Normal bowel sounds. negative: Tenderness - Rectal Rectal exam: Deferred - exam: Deferred - Extremities Extremities exam: Normal inspection, Full ROM, Normal capillary refill. negative: Tenderness - Back Back exam: Reports: Normal inspection, Full ROM, Tenderness (right flank pain and worse with palpation and rotation of the shoulders or standing flexion). Denies: Muscle spasm, Rash noted - Neurological Neurological exam: Alert, Normal gait, Oriented X3, Reflexes normal - Psychiatric Psychiatric exam: Normal affect, Normal mood - Skin Skin exam: Dry, Intact, Normal color, Warm Course Vital Signs 03/10/19 11:02 Temperature 98.1 F Pulse Rate 80 Respiratory 20 Rate Blood Pressure 118/72 Pulse Ox 94 L Medical Decision Making - Data Complexity MDM Data: Labs Ordered and/or Reviewed, X-Ray Ordered and/or Reviewed (bilateral kidney stones none are obstructing, AAA 4.6 cm ,fibrosis in the lung bases similiar to previous) - Lab Data Result diagrams: 03/10/19 12:00 03/10/19 12:00 Disposition Clinical Impression: Fibrosis of lung, Kidney stones Lumbar strain Qualifiers: Encounter type: initial encounter Qualified Code(s): S39.012A - Strain of muscle, fascia and tendon of lower back, initial encounter AAA (abdominal aortic aneurysm) Qualifiers: Presence of rupture: without rupture Qualified Code(s): I71.4 - Abdominal aortic aneurysm, without rupture Disposition: Home, Self-Care Condition: (1) Good Instructions: Low Back Strain (ED) Additional Instructions: follow up with family Dr in 2-7 days to go over CT scan of abd and follow the AAA which is 4.6 cm heat to the back three times a day use zanaflex4 mg three times a day stop flexeril tylenol 1000 mg three times in 24 hours for pain Prescriptions: Tizanidine HCl [Zanaflex] 4 mg PO TID #30 capsule Forms: Patient Portal Access Time of Disposition: 14:53 Quality - Quality Measures Quality Measures: N/A - Blood Pressure Screening Does Patient Have Any of the Following: No Blood Pressure Classification: Normal BP Reading Systolic Measurement: 118 Diastolic Measurement: 72 Screening for High Blood Pressure: < Normal BP, F/U Not Required > [G8783]
[2019-03-10] MEDS ORDERED: LORAZEPAM 2 MG/ML VIAL IV ONE (11:47)
[2019-03-10] MEDS ORDERED: ACETAMINOPHEN 500 MG TABLET PO ONE (11:48)
[2019-03-10 12:38] LABS: ABSOLUTE NEUTROPHIL COUNT 3.03; BASO % 0.4 % (0-6); EOS % 0.8 % (0-6); GRAN % 59.7 % (47-80); HEMATOCRIT 44.7 % (42.0-52.0); HEMOGLOBIN 14.9 gm/dl (14.0-18.0); LYMPH % 28.6 % (16-45); MEAN CELL VOLUME 89.4 fl (81-97); MEAN CORPUSCULAR HEMOGLOBIN 29.8 pg (27-33); MEAN CORPUSCULAR HGB CONC 33.3 g/dl (32-36); MEAN PLATELET VOLUME 9.7 fl (7.4-10.4); MONO % 10.5 % (0-9); PLATELET COUNT 158 K/uL (130-400); RED CELL DISTRIBUTION WIDTH 14.2 % (11.5-14.5); WHITE BLOOD COUNT W/O DIFF 5.1 K/uL (4.2-12.2)
[2019-03-10 12:47] LABS: BLOOD UREA NITROGEN 11 mg/dL (6-20); CREATININE 0.8 mg/dL (0.7-1.2); EST GLOMERULAR FILTRATION RATE > 60 mL/min
[2019-03-10 12:50] LABS: GLUCOSE,RANDOM 130 mg/dL (74-109)
[2019-03-10 13:37] LABS: URINE APPEARANCE CLEAR; URINE BILIRUBIN SMALL (NEGATIVE); URINE BLOOD NEGATIVE (NEGATIVE); URINE KETONE NEGATIVE (NEGATIVE); URINE LEUKOCYTE ESTERASE NEGATIVE (NEGATIVE); URINE NITRITE NEGATIVE (NEGATIVE); URINE PROTEIN TRACE (NEGATIVE); URINE UROBILINOGEN >=8.0 E.U./dL (0.20 - 1.00)
[2019-03-10 13:39] LABS: URINE COLOR AMBER
[2019-03-10 13:46] LABS: URINE EPITHELIAL CELLS NONE SEEN (FEW); URINE HYALINE CAST FEW /lpf; URINE MUCUS HEAVY; URINE RBC NONE SEEN (NONE SEEN); URINE WBC 0 - 2 (0-2/hpf)
--- NOTE | 2019-03-11 22:39 | CT SCAN REPORT ---
EXAM: CT SCAN ABDOMEN/PELVIS WO CONTRAST HISTORY: ACUTE RIGHT FLANK PAIN FOR ONE DAY. PRIOR APPENDECTOMY. TECHNIQUE: Thin-collimation helical CT examination of the abdomen and pelvis is performed without oral or intravenous contrast administration. Lack of oral and IV contrast utilization limits evaluation of the bowel and solid viscera, respectively. COMPARISON: Contrast-enhanced CT abdomen and pelvis dated 06/04/2016. FINDINGS: There are mixed reticular and ground-glass opacities in the posterior right lung base consistent with chronic interstitial change and possible atelectasis. Chronic infiltrate/pneumonitis less likely. This appearance is stable since a 11/13/2017 CTA chest examination. Minor reticular opacity prominence within the left lung base also re-demonstrated consistent with chronic interstitial change. No pleural or pericardial effusion. The heart is not enlarged. Coronary artery calcifications vs. coronary artery stents bilaterally. The hepatic margins appear somewhat micronodular and the left liver lobe appears mildly hypertrophied. This can be seen with cirrhosis. No suspicious focal hepatic mass. The spleen is mildly enlarged. The craniocaudad dimension is approximately 14 cm. No focal splenic lesion. The pancreas and adrenal glands are normal in appearance. The gallbladder is moderately distended. No cholelithiasis, gallbladder wall thickening, or pericholecystic fluid. No biliary ductal dilatation. The kidneys are normal in position and smoothly marginated. There is bilateral nephrolithiasis. There is a nonobstructing calculus in the mid to upper right kidney measuring 2.5 mm. A nonobstructing calculus measuring 2.5 mm is also demonstrated within the upper pole of the left kidney. No other nephrolithiasis. There is a hypodense mass within the posterolateral upper pole of the left kidney measuring approximately 11 mm. This has slightly increased in size since 2016. It is nonspecific but likely a cyst. No other renal mass. No evidence of obstructive uropathy. No ureteral calculus. No intrinsic urinary bladder abnormality is seen, though evaluation is limited by lack of distention. No intraabdominal nor retroperitoneal lymphadenopathy is demonstrated. There are "kissing" segments of aneurysmal dilatation of the infrarenal abdominal aorta. The more proximal segment arises approximately 3 cm distal to the right renal artery origin. It measures 3.5 cm in length with a maximum AP diameter of 3.4 cm and maximum transverse diameter of 3.2 cm. The more distal aneurysmal segment extends to the bifurcation. This measures approximately 7 cm in length. It has a maximum AP diameter of 4.6 cm and maximum transverse diameter of 4.2 cm. This has enlarged since 2016. In 2016, the proximal segment had a maximum diameter of 2.6 cm, while the more distal segment had a maximum diameter of 3.2 cm. The common iliac arteries are ectatic/aneurysmal with the right common iliac artery measuring 2 cm in diameter proximally. Ectasia of the left common iliac artery is most pronounced distally, where it measures 2.5 cm in maximum diameter. No pelvic mass nor lymphadenopathy. No free pelvic fluid. Surgical clips are noted in the right lower quadrant of the abdomen. No gross bowel dilatation nor definite bowel wall thickening. The sigmoid colon is redundant extending rightward. There is an apparent short segment of wall thickening of the sigmoid colon in the right lower quadrant, likely due to incomplete distention rather than true bowel pathology. Occasional colonic diverticula are identified without diverticulitis. The wall of the distal rectum appears mildly prominent in thickness, likely due to incomplete distention. There is fat-density prominence within the left inguinal canal proximally consistent with a small fat-filled inguinal hernia. No lytic or blastic bone lesion. IMPRESSION: 1. CHRONIC FIBROSIS/INFILTRATE IN THE RIGHT LUNG BASE IS STABLE. MILD FIBROTIC CHANGES WITHIN THE LEFT LUNG BASE. 2. BILATERAL CORONARY ARTERY CALCIFICATIONS VS. CORONARY ARTERY STENTS. 3. MORPHOLOGY OF THE LIVER SUGGESTS CIRRHOSIS. SPLENOMEGALY. 4. BILATERAL NEPHROLITHIASIS. NO OBSTRUCTIVE UROPATHY. SMALL HYPODENSE LESION IN THE UPPER POLE OF THE LEFT KIDNEY IS LIKELY A CYST. 5. INFRARENAL ABDOMINAL AORTIC ANEURYSM WITH MAXIMUM DIAMETER OF 4.6 CM. THIS HAS PROGRESSED SINCE 2016, ON WHICH THE MAXIMUM DIAMETER IS 3.2 CM. ECTASIA/DILATATION OF THE COMMON ILIAC ARTERIES. 6. MILD COLONIC DIVERTICULOSIS WITHOUT EVIDENCE OF DIVERTICULITIS. STATUS POST APPENDECTOMY. 7. SMALL FAT-FILLED LEFT INGUINAL HERNIA. JOB NUMBER: [id number] [facility]
== END 2019-03-10 15:04 | disposition home or self-care (01) ==
LOC: ER 10:46
DX: S39.012A Strain of muscle, fascia and tendon of lower back, initial encounter (principal); I71.4 Abdominal aortic aneurysm, without rupture; N20.0 Calculus of kidney; J84.10 Pulmonary fibrosis, unspecified; I10 Essential (primary) hypertension; E11.9 Type 2 diabetes mellitus without complications; J44.9 Chronic obstructive pulmonary disease, unspecified; I25.2 Old myocardial infarction; Z87.891 Personal history of nicotine dependence; X50.9XXA Other and unspecified overexertion or strenuous movements or postures, initial encounter
CPT/HCPCS: 74176; 80048; 81001; 85025; 96374; 99284

== ENCOUNTER 2019-03-25 01:40 | Emergency (ER) | payer MEDICARE, MEDICAID ==
[2019-03-25] MEDS ORDERED: ASPIRIN 81 MG CHEWABLE TABLET PO ONE (01:51)
--- NOTE | 2019-03-25 02:00 | Emergency Department Record ---
History of Present Illness - General Chief Complaint: Chest Pain Stated Complaint: CHEST PAIN Time Seen by Provider: 03/25/19 01:48 Source: Patient Mode of Arrival: Wheelchair Limitations: No limitations - History of Present Illness Initial Comments: 58 yo male presents to ED for evaluation of chest discomfort that began 1 hour ago. 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 Patient also c/o dizziness, thought he was in atrial fibrillation again. Patient was treated for pneumonia 1 week ago at [facility] for pneumonia. Patient denies fevers, chills, or productive cough symptoms. Patient's last stress test was in December, reports it "looked fine". MD Complaint: Chest pain Onset/Timin -: Hour(s) Onset: During rest Pain Location: Substernal Pain Radiation: Back Severity scale (1-10): 9 Quality: Sharp Consistency: Constant Improves With: Nitroglycerin Worsens With: Inspiration Context: Recent illness Anginal Symptoms: Nausea Treatments Prior to Arrival: Nitroglycerin - Related Data Home Medications Medication Instructions Recorded Confirmed Last Taken Albuterol Sulfate [Albuterol 1 - 2 inh IH Q4HR PRN 03/25/19 03/25/19 Unknown Sulfate Hfa] Previous Rx's Medication Instructions Recorded Promethazine HCl [Phenergan] 25 mg PO TID #10 tablet 03/08/19 Tizanidine HCl [Zanaflex] 4 mg PO TID #30 capsule 03/10/19 Allergies Allergy/AdvReac Type Severity Reaction Status Date / Time venom-honey bee Allergy Severe ANAPHYLAXIS Verified 03/10/19 11:00 [bee venom (honey bee)] diazepam [From Valium] Allergy Intermediate unknown Verified 03/10/19 11:00 fentanyl Allergy Intermediate ITCHING Verified 03/10/19 11:00 ketorolac tromethamine Allergy Intermediate unknown Verified 03/10/19 11:00 morphine Allergy Intermediate unknown Verified 03/10/19 11:00 orphenadrine citrate Allergy Intermediate unknown Verified 03/10/19 11:00 [From Norflex] iodine Allergy Mild ITCHING Verified 03/10/19 11:00 Travel Screening - Travel/Exposure Within Last 30 Days Have you traveled within the last 30 days?: No - Travel Symptoms Symptom Screening: None Review of Systems Constitutional: Denies: Chills, Fever, Malaise, Night sweats Eyes: Denies: Eye discharge, Eye pain ENT: Denies: Congestion, Ear pain, Epistaxis Respiratory: Denies: Cough, Dyspnea Cardiovascular: Reports: Chest pain. Denies: Dyspnea on exertion Endocrine: Denies: Fatigue, Heat or cold intolerance Gastrointestinal: Denies: Abdominal pain, Nausea, Vomiting Genitourinary: Denies: Incontinence, Retention Musculoskeletal: Denies: Arthralgia, Back pain Skin: Denies: Bruising, Change in color Neurological: Reports: Vertigo. Denies: Abnormal gait, Confusion, Headache, Seizure Psychiatric: Denies: Anxiety Hematological/Lymphatic: Reports: Easy bleeding, Easy bruising. Denies: Anemia, Blood Clots Past Medical History - SOCIAL HISTORY Smoking Status: Former smoker - RESPIRATORY Hx Respiratory Disorders: Yes Hx Bronchitis: Yes Hx COPD: Yes Hx Dyspnea: Yes Hx Pneumonia: Yes Hx Sleep Apnea: Yes Hx of CPAP: Yes - CARDIOVASCULAR Hx Cardio Disorders: Yes Hx Cardiac Cath: Yes (3 stents) Hx CHF: No Hx Edema: No Hx Heart Attack: Yes (2007,2008) Hx Hypertension: Yes Hx Irregular Heartbeat: Yes (a-fib) Comment:: CAD; high cholesterol - NEURO Hx Neuro Disorders: Yes Hx Neuropathy: Yes Comment:: neuropathy in legs and arms - GI Hx GI Disorders: Yes Hx Reflux: Yes Hx Rectal Bleeding: Yes (hemorrhoids) Hx Ulcer: Yes Hx of Polyps: Yes - Hx Genitourinary Disorders: Yes Comment:: cysts in scrotum - ENDOCRINE Hx Endocrine Disorders: Yes Hx Diabetes: Yes - MUSCULOSKELETAL Hx Musculoskeletal Disorders: Yes Hx Fibromyalgia: Yes Comment:: chronic pain, spinal stenosis - PSYCH Hx Psych Problems: Yes Hx Anxiety: Yes Hx Depression: Yes - HEMATOLOGY/ONCOLOGY Hx Hematology/Oncology Disorders: No Family Medical History Any Significant Family History?: Yes Hx Anxiety: Brother/Sister Hx Dementia: Mother Hx Depression: Brother/Sister Hx Diabetes: Father, Mother Hx Heart Disease: Father, Mother Hx HTN: Father, Mother Hx Resp Disorders: Mother Hx Seizures: Children Hx Stroke: Mother *Stroke Comment: MOm-brain aneurysm Physical Exam - General General Appearance: Alert, Oriented x3, Cooperative, Anxious Limitations: No limitations - Head Head exam: Atraumatic, Normocephalic, Normal inspection Head exam detail: negative: Abrasion, Contusion, Kidd's sign, General tenderness, Hematoma, Laceration - Eye Eye exam: Normal appearance. negative: Conjunctival injection, Periorbital swelling, Periorbital tenderness, Scleral icterus - ENT Ear exam: negative: Auricular hematoma, Auricular trauma Nasal Exam: negative: Active bleeding, Discharge, Dried blood, Foreign body Mouth exam: negative: Drooling, Laceration, Muffled voice, Tongue elevation - Neck Neck exam: Normal inspection. negative: Meningismus, Tenderness - Respiratory Respiratory exam: Normal lung sounds bilaterally. negative: Rales, Respiratory distress, Rhonchi, Stridor - Cardiovascular Cardiovascular Exam: Regular rate, Normal rhythm, Normal heart sounds - GI/Abdominal GI/Abdominal exam: Soft. negative: Rebound, Rigid, Tenderness - Rectal Rectal exam: Deferred - exam: Deferred - Extremities Extremities exam: Normal inspection. negative: Pedal edema, Tenderness - Back Back exam: Denies: CVA tenderness (R), CVA tenderness (L) - Neurological Neurological exam: Alert, Normal gait, Oriented X3 - Psychiatric Psychiatric exam: Normal affect, Normal mood - Skin Skin exam: Normal color. 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 ] Respiratory 28 H Rate Blood Pressure 115/81 [Left Arm] Pulse Ox 97 - Reevaluation(s) Reevaluation #1: 03/25/19 01:52 EKG: NSR 95 Normal axis, RBBB No acute ST-T wave changes No change from 01/19/19 Reevaluation #2: 03/25/19 02:08 Recent records from [facility] were reviewed: CTA Chest/Abdomen/Pelvis: Infrarenal bilobed AAA (4.6 cm) Chronic lung disease, no acute process Recent Discharge summary (03/18/19) was reviewed: Patient was treated for COPD with Hypoxia, treated with Prednisone/Doxycycline Right sided low back pain was treated with OMT following negative US and CT imaging studies. Previous stress test: 04/11/2018: Very poor quality post-stress and rest myocardial perfusion imaging revealing large fixed septal inferior wall defect likely due to attenuation. Reevaluation #3: 03/25/19 02:36 Laboratory studies were reviewed and are grossly unremarkable for an acute process. CXR: Chronic changes, nothing acute. Patient was updated on all results thus far, appears to be resting comfortably at this time. Following discussion with the patient, will perform 3-hour Troponin to exclude acute myocardial injury. If negative, patient may be safely discharged to follow-up later today with [facility]. Reevaluation #4: 03/25/19 03:49 Patient reassessed, sleeping at this time. Reevaluation #5: 03/25/19 05:21 Patient's repeat Troponin appears negative for myocardial injury. Patient appears stable for discharge at this time with instructions to follow-up with his patient accounting representative in 24-48 hours as directed. Patient appears stable for discharge at this time. Medical Decision Making - Lab Data Result diagrams: 03/25/19 01:52 03/25/19 01:52 Disposition Disposition: Discharge Clinical Impression: Atypical chest pain Disposition: Home, Self-Care Condition: (2) Stable Instructions: Chest Pain (ED) Additional Instructions: Return to ED if your symptoms worsen or if you have any concerns. Follow-up with your Applier in 24-48 hours as directed. Forms: Patient Portal Access Time of Disposition: 06:12 Quality - Quality Measures Quality Measures: N/A - Blood Pressure Screening Does Patient Have Any of the Following: No Blood Pressure Classification: Normal BP Reading Systolic Measurement: 110 Diastolic Measurement: 64 Screening for High Blood Pressure: < Normal BP, F/U Not Required > [G8783]
[2019-03-25 02:11] LABS: HEMATOCRIT 45.5 % (42.0-52.0); HEMOGLOBIN 15.3 gm/dl (14.0-18.0); MEAN CELL VOLUME 90.3 fl (81-97); MEAN CORPUSCULAR HEMOGLOBIN 30.4 pg (27-33); MEAN CORPUSCULAR HGB CONC 33.6 g/dl (32-36); MEAN PLATELET VOLUME 9.5 fl (7.4-10.4); PLATELET COUNT 157 K/uL (130-400); RED BLOOD COUNT 5.04 M/uL (4.40-5.70); RED CELL DISTRIBUTION WIDTH 14.7 % (11.5-14.5); WHITE BLOOD COUNT W/O DIFF 5.7 K/uL (4.2-12.2)
[2019-03-25 02:25] LABS: BLOOD UREA NITROGEN 10 mg/dL (6-20); CREATININE 0.9 mg/dL (0.7-1.2); EST GLOMERULAR FILTRATION RATE > 60 mL/min
[2019-03-25 02:26] LABS: TOTAL PROTEIN 7.8 g/dL (6.6-8.7)
[2019-03-25 02:28] LABS: GLUCOSE,RANDOM 111 mg/dL (74-109)
[2019-03-25 02:31] LABS: ALB/GLOB RATIO 1.2 (1.1-1.8); ALBUMIN 4.3 g/dL (4.0-5.0); ALKALINE PHOSPHATASE 174 U/L (40-129); ALT/SGPT 34 U/L (<41); AST/SGOT 52 U/L (10.0-50.0)
[2019-03-25 02:50] LABS: ABSOLUTE NEUTROPHIL COUNT 2.61; ANISOCYTOSIS 1+; PLATELET ESTIMATE NORMAL (NORMAL)
--- NOTE | 2019-03-26 09:37 | RADIOLOGY REPORT ---
EXAM: CHEST, TWO VIEWS HISTORY: CHEST PAIN. DIZZINESS AND NAUSEA. RECENT PNEUMONIA. TECHNIQUE: PA and lateral upright views of the chest were obtained. Comparison: 03/08/19. FINDINGS: The heart, mediastinum, and pulmonary vasculature are normal. There is very minor atelectasis or infiltrate at the lung bases. The upper lung azar are clear. There is no pneumothorax or effusion. The bones appear intact. IMPRESSION: 1. MINOR BIBASILAR ATELECTASIS OR INFILTRATE. 2. OTHERWISE, NEGATIVE CHEST EXAMINATION. JOB NUMBER: [id number] [facility]
== END 2019-03-25 05:25 | disposition home or self-care (01) ==
LOC: ER 01:40
DX: R07.89 Other chest pain (principal); R42 Dizziness and giddiness; R11.0 Nausea; I71.4 Abdominal aortic aneurysm, without rupture; J44.9 Chronic obstructive pulmonary disease, unspecified; I10 Essential (primary) hypertension; I25.2 Old myocardial infarction; Z87.891 Personal history of nicotine dependence
CPT/HCPCS: 71046; 80053; 84484; 85027; 93005; 93010; 99284

== ENCOUNTER 2019-10-13 15:27 | Emergency (ER) | payer MEDICARE, MEDICAID ==
--- NOTE | 2019-10-13 15:43 | Emergency Department Record ---
History of Present Illness - General Chief Complaint: Fall Injury Stated Complaint: FALL Time Seen by Provider: 10/13/19 15:34 Source: Patient Mode of Arrival: EMS Limitations: No limitations - History of Present Illness Initial Comments: The patient is here due to a slip and fall today on ice. He states he was standing by his car at a school when he slipped on ice and landed on his buttocks. The patient states the fall was not witnessed by anyone. He then was able to stand and get into his van with no pain or discomfort. Soon after sitting in the van he noticed he began to have neck and back pain and felt his arms to be tingling. The patient then called EMS who brought the patient to the ER with a cervical collar in place. Presently the patient is complaining of severe neck, back and head pain. MD Complaint: Fall Onset/Timin -: Minutes(s) Fall From: Standing When Fall Occurred: Just prior to arrival - Related Data Previous Rx's Medication Instructions Recorded Promethazine HCl [Phenergan] 25 mg PO TID #10 tablet 03/08/19 Tizanidine HCl [Zanaflex] 4 mg PO TID #30 capsule 03/10/19 Allergies Allergy/AdvReac Type Severity Reaction Status Date / Time venom-honey bee Allergy Severe ANAPHYLAXIS Verified 10/13/19 15:39 [bee venom (honey bee)] diazepam [From Valium] Allergy Intermediate unknown Verified 10/13/19 15:39 fentanyl Allergy Intermediate ITCHING Verified 10/13/19 15:39 ketorolac tromethamine Allergy Intermediate unknown Verified 10/13/19 15:39 morphine Allergy Intermediate unknown Verified 10/13/19 15:39 orphenadrine citrate Allergy Intermediate unknown Verified 10/13/19 15:39 [From Norflex] iodine Allergy Mild ITCHING Verified 10/13/19 15:39 Review of Systems Constitutional: Denies: Chills, Fever Eyes: Denies: Eye discharge ENT: Denies: Congestion Respiratory: Denies: Cough, Dyspnea Past Medical History - SOCIAL HISTORY Smoking Status: Former smoker Alcohol Use: None Drug Use: None - RESPIRATORY Hx Respiratory Disorders: Yes Hx Bronchitis: Yes Hx COPD: Yes Hx Dyspnea: Yes Hx Pneumonia: Yes Hx Sleep Apnea: Yes Hx of CPAP: Yes - CARDIOVASCULAR Hx Cardio Disorders: Yes Hx Cardiac Cath: Yes (3 stents) Hx CHF: Yes Hx Edema: No Hx Heart Attack: Yes (2007,2008) Hx Hypertension: Yes Hx Irregular Heartbeat: Yes (a-fib) Comment:: CAD; high cholesterol - NEURO Hx Neuro Disorders: Yes Hx Neuropathy: Yes (diabetic) Comment:: neuropathy in legs and arms - GI Hx GI Disorders: Yes Hx Reflux: Yes Hx Pancreatitis: Yes (2008) Hx Rectal Bleeding: Yes (hemorrhoids) Hx Ulcer: Yes Hx of Polyps: Yes - Hx Genitourinary Disorders: Yes Hx Kidney Stones: Yes Comment:: cysts in scrotum - ENDOCRINE Hx Endocrine Disorders: Yes Hx Diabetes: Yes - MUSCULOSKELETAL Hx Musculoskeletal Disorders: Yes Hx Fibromyalgia: Yes Comment:: chronic pain, spinal stenosis - PSYCH Hx Psych Problems: Yes Hx Anxiety: Yes Hx Depression: Yes - HEMATOLOGY/ONCOLOGY Hx Hematology/Oncology Disorders: No Family Medical History Any Significant Family History?: Yes Hx Anxiety: Brother/Sister Hx Dementia: Mother Hx Depression: Brother/Sister Hx Diabetes: Father, Mother Hx Heart Disease: Father, Mother Hx HTN: Father, Mother Hx Resp Disorders: Mother Hx Seizures: Children Hx Stroke: Mother *Stroke Comment: MOm-brain aneurysm Physical Exam - General General Appearance: Alert, Oriented x3, Cooperative, Mild distress (due to neck pain.) - Head Head exam: Atraumatic, Normocephalic, Normal inspection - Eye Eye exam: Normal appearance, PERRL - Neck Neck exam: Normal inspection, Full ROM, Tenderness (There is posterior cervical tenderness.) - Respiratory Respiratory exam: Normal lung sounds bilaterally. negative: Respiratory distress - Cardiovascular Cardiovascular Exam: Regular rate, Normal rhythm, Normal heart sounds - GI/Abdominal GI/Abdominal exam: Soft, Normal bowel sounds. negative: Tenderness - Extremities Extremities exam: Normal inspection. negative: Tenderness - Back Back exam: Reports: Vertebral tenderness (L3-5 appears to be tender.) - Neurological Neurological exam: Alert, Oriented X3. negative: Altered, Motor sensory deficit (The patient has normal motor and sensory functions to the upper and lower extremities.) Course - Reevaluation(s) Reevaluation #1: The patient became angry due to me telling him I would be giving him IV Tylenol for pain and no narcotics. He then demanded to be transferred to another hospital. I then did tell him I needed to perform a proper medical screening exam including xrays of his spine to R/O any significant traumatic pathology and he refused that plan. He then got up off the cart and walked out of the ED and would not wait to sign the AMA papers. I did explain to him with the nurse present that by leaving he could end up with a spinal injury, stroke, paraplegia, quadraplegia and even . The patient fully understands the risks and again would not wait to sign the AMA papers. 10/13/19 15:47 Medical Decision Making - Lab Data Result diagrams: 10/13/19 15:35 Disposition Disposition: Discharge Clinical Impression: Fall Qualifiers: Encounter type: initial encounter Qualified Code(s): W19.XXXA - Unspecified fall, initial encounter Disposition: Against Medical Advice Condition: (2) Stable Instructions: Fall Prevention for Older Adults (ED) Forms: Patient Portal Access Time of Disposition: 15:51 Quality - Quality Measures Quality Measures: N/A - Blood Pressure Screening View Details: Yes Does Patient Have Any of the Following: No Blood Pressure Classification: Pre-Hypertensive BP Reading Systolic Measurement: 126 Diastolic Measurement: 78 Screening for High Blood Pressure: < Pre-Hypertensive BP, F/U Documented > [G8950] Pre-Hypertensive Follow-up Interventions: Referral to alternative/primary care provider.
--- NOTE | 2019-10-13 15:58 | Emergency Department Record ---
History of Present Illness - General Chief Complaint: Fall Injury Stated Complaint: FALL Time Seen by Provider: 10/13/19 15:34 Source: Patient Mode of Arrival: EMS - History of Present Illness Initial Comments: Additional hx was obtained. After the patient got up from the ice and climbed into his van, he THEN drove to a relatives house and called EMS from there and not the scene of the fall. Onset/Timin -: Minutes(s) Fall From: Standing When Fall Occurred: Just prior to arrival Fall Witnessed: No Place Fall Occurred: Home Loss of Consciousness: None Prolonged Down Time?: No Symptoms Prior to Fall: None Location: Back, Buttocks Associated Symptoms: Denies - [place] Coma Scale Eye Response: (4) Open spontaneously Motor Response: (6) Obeys commands Verbal Response: (5) Oriented [place] Total: 15 - Related Data Previous Rx's Medication Instructions Recorded Promethazine HCl [Phenergan] 25 mg PO TID #10 tablet 03/08/19 Tizanidine HCl [Zanaflex] 4 mg PO TID #30 capsule 03/10/19 Allergies Allergy/AdvReac Type Severity Reaction Status Date / Time venom-honey bee Allergy Severe ANAPHYLAXIS Verified 10/13/19 15:39 [bee venom (honey bee)] diazepam [From Valium] Allergy Intermediate unknown Verified 10/13/19 15:39 fentanyl Allergy Intermediate ITCHING Verified 10/13/19 15:39 ketorolac tromethamine Allergy Intermediate unknown Verified 10/13/19 15:39 morphine Allergy Intermediate unknown Verified 10/13/19 15:39 orphenadrine citrate Allergy Intermediate unknown Verified 10/13/19 15:39 [From Norflex] iodine Allergy Mild ITCHING Verified 10/13/19 15:39 Travel Screening - Travel/Exposure Within Last 30 Days Have you traveled within the last 30 days?: No Review of Systems Constitutional: Denies: Chills, Fever Eyes: Denies: Eye discharge ENT: Denies: Congestion Respiratory: Denies: Cough, Dyspnea Past Medical History - SOCIAL HISTORY Smoking Status: Former smoker Alcohol Use: None Drug Use: None - RESPIRATORY Hx Respiratory Disorders: Yes Hx Bronchitis: Yes Hx COPD: Yes Hx Dyspnea: Yes Hx Pneumonia: Yes Hx Sleep Apnea: Yes Hx of CPAP: Yes - CARDIOVASCULAR Hx Cardio Disorders: Yes Hx Cardiac Cath: Yes (3 stents) Hx CHF: Yes Hx Edema: No Hx Heart Attack: Yes (2007,2008) Hx Hypertension: Yes Hx Irregular Heartbeat: Yes (a-fib) Comment:: CAD; high cholesterol - NEURO Hx Neuro Disorders: Yes Hx Neuropathy: Yes (diabetic) Comment:: neuropathy in legs and arms - GI Hx GI Disorders: Yes Hx Reflux: Yes Hx Pancreatitis: Yes (2008) Hx Rectal Bleeding: Yes (hemorrhoids) Hx Ulcer: Yes Hx of Polyps: Yes - Hx Genitourinary Disorders: Yes Hx Kidney Stones: Yes Comment:: cysts in scrotum - ENDOCRINE Hx Endocrine Disorders: Yes Hx Diabetes: Yes - MUSCULOSKELETAL Hx Musculoskeletal Disorders: Yes Hx Fibromyalgia: Yes Comment:: chronic pain, spinal stenosis - PSYCH Hx Psych Problems: Yes Hx Anxiety: Yes Hx Depression: Yes - HEMATOLOGY/ONCOLOGY Hx Hematology/Oncology Disorders: No Family Medical History Any Significant Family History?: Yes Hx Anxiety: Brother/Sister Hx Dementia: Mother Hx Depression: Brother/Sister Hx Diabetes: Father, Mother Hx Heart Disease: Father, Mother Hx HTN: Father, Mother Hx Resp Disorders: Mother Hx Seizures: Children Hx Stroke: Mother *Stroke Comment: MOm-brain aneurysm Physical Exam - General Limitations: No limitations Course Vital Signs 10/13/19 15:34 Temperature 97.9 F Pulse Rate 73 Respiratory 20 Rate Blood Pressure 126/78 Pulse Ox 95 Medical Decision Making - Lab Data Result diagrams: 10/13/19 15:35 Disposition Clinical Impression: Fall Qualifiers: Encounter type: initial encounter Qualified Code(s): W19.XXXA - Unspecified fall, initial encounter Disposition: Against Medical Advice Condition: (2) Stable Instructions: Fall Prevention for Older Adults (ED) Forms: Patient Portal Access Quality - Quality Measures Quality Measures: N/A - Blood Pressure Screening View Details: Yes Does Patient Have Any of the Following: No Blood Pressure Classification: Pre-Hypertensive BP Reading Systolic Measurement: 126 Diastolic Measurement: 78 Screening for High Blood Pressure: < Pre-Hypertensive BP, F/U Documented > [G8950] Pre-Hypertensive Follow-up Interventions: Referral to alternative/primary care provider.
== END 2019-10-13 16:02 | disposition left against medical advice (07) ==
LOC: ER 15:27
DX: M54.6 Pain in thoracic spine (principal); M54.2 Cervicalgia; G89.11 Acute pain due to trauma; Y92.009 Unspecified place in unspecified non-institutional (private) residence as the place of occurrence of the external cause; W00.0XXA Fall on same level due to ice and snow, initial encounter; Z53.29 Procedure and treatment not carried out because of patient's decision for other reasons
CPT/HCPCS: 99281